=== PATIENT | male | born 1985 | race Caucasian/White ===

== ENCOUNTER 2017-09-01 11:17 | Inpatient (IN) | payer MEDICAID ==
[2017-09-01] MEDS ORDERED: Ondansetron 4 MG/2 ML SDV IVPUSH ONE (12:12)
[2017-09-01] MEDS ORDERED: Sodium Chloride 0.9% 1,000 ML IV ONE ×2 (12:12→14:28)
[2017-09-01] MEDS ORDERED: Sodium Chloride 0.9% 10 ML Syringe FLUSH PRN (12:12)
--- NOTE | 2017-09-01 12:17 | EDM.PDOC ---
ED HPI GENERAL MEDICAL PROBLEM - General Chief Complaint: Gastrointestinal Problem Stated Complaint: POSS DEHYDRATION Time Seen by Provider: 09/01/17 12:05 Source of Information: Reports: Patient History Limitations: Reports: Other (patient nonverbal) - History of Present Illness INITIAL COMMENTS - FREE TEXT/NARRATIVE: Patient is a 32-year-old handicapped male who presents to the ED with concerns of possible dehydration. Awning Hanger is present and states the patient as of yesterday has been vomiting multiple times. He's had a poor appetite. Poor fluid intake. Decreased urination noted. Patient has been more tired as of today. There's been multiple people sick at his residence with similar symptoms. He is on a fluid restriction secondary to issues with hyponatremia and seizure disorder. He takes Tylenol as scheduled for body aches unknown if these had any fevers. He is unsteady on his gait is shaky with ambulation. Per staff patient does appear to be more disoriented. Per tour manager the patient is normally non-verbal although and can signal yes or no by touching different places on his face. He is normally ambulatory. 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 STOCK CLERK: Reports: NSAIDS - Related Data Allergies Allergy/AdvReac Type Severity Reaction Status Date / Time No Known Allergies Allergy Verified 09/01/17 20:23 Home Meds: Home Meds Acetaminophen [Mapap] 1,000 mg PO Q4H PRN 09/01/17 [History] Calcium Carbonate/Vitamin D3 [Calcium 600 + Vit D Tablet] 1 tab PO BID 09/01/17 [History] Cholecalciferol (Vitamin D3) [Vitamin D3] 1,000 units PO BEDTIME 09/01/17 [ History] Citalopram [Citalopram HBr] 30 mg PO DAILY 09/01/17 [History] Clindamycin Phos/Benzoyl Perox [Clinda-Benzoyl Perox 1-5% Pump] 1 applic TOP BEDTIME 09/01/17 [History] Cyclobenzaprine [Flexeril] 10 mg PO BEDTIME 09/01/17 [History] Divalproex Sodium [Divalproex Sodium ER] 500 mg PO BID 09/01/17 [History] Ferrous Sulfate [Iron] 325 mg PO BID 09/01/17 [History] Furosemide 20 mg PO DAILY 09/01/17 [History] Ibuprofen 600 mg PO Q6H PRN 09/01/17 [History] Imipramine HCl [Imipramine] 75 mg PO BEDTIME 09/01/17 [History] LORazepam [Ativan] 0.5 mg PO QID 09/01/17 [History] Lisinopril 20 mg PO DAILY 09/01/17 [History] Multivitamin [Multi-Vitamin Daily] 1 cap PO BEDTIME 09/01/17 [History] Mupirocin Oint [Bactroban Nasal Oint] 1 applic NASBOTH BID 09/01/17 [History] OXcarbazepine [Trileptal] 900 mg PO BID 09/01/17 [History] Omeprazole 40 mg PO DAILY 09/01/17 [History] QUEtiapine [SEROquel XR] 400 mg PO BEDTIME 09/01/17 [History] QUEtiapine [SEROquel] 100 mg PO TID 09/01/17 [History] Sodium Chloride 3 gm PO TID 09/01/17 [History] Sodium Chloride [Deep Sea] 1 spray NASBOTH TID PRN 09/01/17 [History] Vitamin E 400 units PO BID 09/01/17 [History] cloNIDine [Catapres] 0.1 mg PO QID 09/01/17 [History] levETIRAcetam [Keppra] 500 mg PO BID 09/01/17 [History] levETIRAcetam [Levetiracetam] 1,000 mg PO BID 09/01/17 [History] ED ROS GENERAL - Review of Systems Review Of Systems: See Below Constitutional: Reports: Malaise, Decreased Appetite. Denies: Fever HEENT: Reports: No Symptoms Respiratory: Reports: No Symptoms Cardiovascular: Reports: No Symptoms GI/Abdominal: Reports: Decreased Appetite, Nausea, Vomiting : Reports: No Symptoms Skin: Reports: No Symptoms ED EXAM, GI/ABD - Physical Exam Exam: See Below Exam Limited By: Other (nonverbal) General Appearance: Alert, WD/WN, No Apparent Distress Ears: Hearing Grossly Normal Nose: Normal Inspection Throat/Mouth: Normal Oropharynx, No Airway Compromise Neck: Normal Inspection, Supple Respiratory/Chest: No Respiratory Distress, Lungs Clear, Normal Breath Sounds, No Accessory Muscle Use, Chest Non-Tender Cardiovascular: Normal Peripheral Pulses, Regular Rate, Rhythm, No Murmur GI/Abdominal Exam: Normal Bowel Sounds, Soft, Non-Tender, No Organomegaly, No Distention Back Exam: Normal Inspection Extremities: Normal Inspection, Non-Tender, No Pedal Edema Neurological: Alert, Oriented (per staff), CN II-XII Intact, No Motor/Sensory Deficits Psychiatric: Normal Affect, Normal Mood Skin Exam: Warm, Dry, Intact, Normal Color, No Rash Course - Vital Signs Last Recorded V/S: Last Vital Signs Temp 102.4 F H 09/01/17 19:52 Pulse 118 H 09/01/17 19:52 Resp 18 09/01/17 19:52 BP 141/85 H 09/01/17 19:52 Pulse Ox 92 L 09/01/17 19:52 - Orders/Labs/Meds Orders: Active Orders 24 hr Category Date Time Status CULTURE BLOOD [] Stat Lab 09/01/17 16:20 Received CULTURE BLOOD [] Stat Lab 09/01/17 16:34 Received CULTURE STREP A CONFIRMATION [] Stat Lab 09/01/17 13:30 Results STREP SCRN A RAPID W CULT CONF [] Stat Lab 09/01/17 13:30 Results Sodium Chloride 0.9% [Saline Flush] Med 09/01/17 12:12 Active 10 ml FLUSH ASDIRECTED PRN Blood Culture x2 Reflex Set [OM.PC] Stat Oth 09/01/17 15:59 Ordered Peripheral IV Insertion Adult [OM.PC] Stat Oth 09/01/17 12:12 Ordered Medication Orders Acetaminophen (Tylenol) 650 mg PO Q4H PRN PRN Reason: Pain (Mild 1-3)/fever Last Admin: 09/01/17 19:00 Dose: 650 mg Hydrocodone Bitart/Acetaminophen (Ronda 325-5 Mg) 1 tab PO Q4H PRN PRN Reason: Pain (moderate 4-6) Albuterol/Ipratropium (Duoneb 3.0-0.5 Mg/3 Ml) 3 ml NEB Q4H PRN PRN Reason: Shortness Of Breath/wheezing Hydralazine HCl (Apresoline) 10 mg IVPUSH Q6H PRN PRN Reason: Hypertension Ceftriaxone Sodium 2 gm/ (Sodium Chloride) 100 mls @ 200 mls/hr IV Q24H [facility] Sodium Chloride (Normal Saline) 1,000 mls @ 100 mls/hr IV ASDIRECTED [facility] Stop: 09/03/17 04:44 Vancomycin HCl 1 gm/ Sodium (Chloride) 250 mls @ 250 mls/hr IV Q12H [facility] Lorazepam (Ativan) 2 mg IVPUSH Q4H PRN PRN Reason: Seizures Magnesium Sulfate (Pharmacy To Dose - Magnesium Replacement) 1 dose .XX ASDIRECTED [facility] Metoprolol Tartrate (Lopressor) 5 mg IVPUSH Q4H PRN PRN Reason: Tachycardia Potassium Chloride (Pharmacy To Dose - Potassium Replacement) 1 dose .XX [facility]RECTED [facility] Sodium Chloride (Saline Flush) 10 ml FLUSH ASDIRECTED PRN PRN Reason: Keep Vein Open Last Admin: 09/01/17 12:22 Dose: 10 ml Vancomycin HCl (Pharmacy To Dose - Vancomycin) 1 dose .XX [facility]RECTED [facility] Labs: Laboratory Tests 09/01/17 09/01/17 09/01/17 Range/Units 12:05 12:05 12:05 WBC 14.04 H (4.23-9.07) K/mm3 RBC 4.96 (4.63-6.08) M/mm3 Hgb 15.7 (13.7-17.5) gm/L Hct 47.5 (40.1-51.0) % MCV 95.8 H (79.0-92.2) fl MCH 31.7 (25.7-32.2) pg MCHC 33.1 (32.2-35.5) g/dl RDW Std Deviation 43.3 (35.1-43.9) fL Plt Count 123 L (163-337) K/mm3 MPV 10.4 (9.4-12.3) fl Neut % (Auto) 81.9 H (34.0-67.9) % Lymph % (Auto) 4.0 L (21.8-53.1) % [place] % (Auto) 13.4 H (5.3-12.2) % Eos % (Auto) 0.1 L (0.8-7.0) Baso % (Auto) 0.2 (0.1-1.2) % Neut # (Auto) 11.50 H (1.78-5.38) K/mm3 Lymph # (Auto) 0.56 L (1.32-3.57) K/mm3 [place] # (Auto) 1.88 H (0.30-0.82) K/mm3 Eos # (Auto) 0.02 L (0.04-0.54) K/mm3 Baso # (Auto) 0.03 (0.01-0.08) K/mm3 Manual Slide Review Abnormal smear Sodium 138 (136-145) mEq/L Potassium 4.0 (3.5-5.1) mEq/L Chloride 102 (98-107) mEq/L Carbon Dioxide 26 (21-32) mEq/L Anion Gap 14.0 (5-15) BUN 27 H (7-18) mg/dL Creatinine 1.8 H (0.7-1.3) mg/dL Est Cr Clr Drug Dosing 51.20 mL/min Estimated GFR (MDRD) 43 (>60) mL/min BUN/Creatinine Ratio 15.0 (14-18) Glucose 103 (74-106) mg/dL Lactic Acid (0.4-2.0) mmol/L Calcium 8.9 (8.5-10.1) mg/dL Total Bilirubin 0.4 (0.2-1.0) mg/dL AST 30 (15-37) U/L ALT 33 (16-63) U/L Alkaline Phosphatase 74 (46-116) U/L C-Reactive Protein 47.1 H* (<1.0) mg/dL Total Protein 7.6 (6.4-8.2) g/dl Albumin 3.4 (3.4-5.0) g/dl Globulin 4.2 gm/dL Albumin/Globulin Ratio 0.8 L (1-2) Urine Color (Yellow) Urine Appearance (Clear) Urine pH (5.0-8.0) Ur Specific Comfort (1.005-1.030) Urine Protein (Negative) Urine Glucose (UA) (Negative) Urine Ketones (Negative) Urine Occult Blood (Negative) Urine Nitrite (Negative) Urine Bilirubin (Negative) Urine Urobilinogen (0.2-1.0) Ur Leukocyte Esterase (Negative) Urine RBC (0-5) /hpf Urine WBC (0-5) /hpf Ur Epithelial Cells (0-5) /hpf Urine Bacteria (FEW) /hpf Hyaline Casts (0-5) /lpf Urine Mucus (FEW) /hpf Mycoplasma pneumon IgM Negative (NEGATIVE) 09/01/17 09/01/17 Range/Units 12:30 16:34 WBC (4.23-9.07) K/mm3 RBC (4.63-6.08) M/mm3 Hgb (13.7-17.5) gm/L Hct (40.1-51.0) % MCV (79.0-92.2) fl MCH (25.7-32.2) pg MCHC (32.2-35.5) g/dl RDW Std Deviation (35.1-43.9) fL Plt Count (163-337) K/mm3 MPV (9.4-12.3) fl Neut % (Auto) (34.0-67.9) % Lymph % (Auto) (21.8-53.1) % [place] % (Auto) (5.3-12.2) % Eos % (Auto) (0.8-7.0) Baso % (Auto) (0.1-1.2) % Neut # (Auto) (1.78-5.38) K/mm3 Lymph # (Auto) (1.32-3.57) K/mm3 [place] # (Auto) (0.30-0.82) K/mm3 Eos # (Auto) (0.04-0.54) K/mm3 Baso # (Auto) (0.01-0.08) K/mm3 Manual Slide Review Sodium (136-145) mEq/L Potassium (3.5-5.1) mEq/L Chloride (98-107) mEq/L Carbon Dioxide (21-32) mEq/L Anion Gap (5-15) BUN (7-18) mg/dL Creatinine (0.7-1.3) mg/dL Est Cr Clr Drug Dosing mL/min Estimated GFR (MDRD) (>60) mL/min BUN/Creatinine Ratio (14-18) Glucose (74-106) mg/dL Lactic Acid 1.2 (0.4-2.0) mmol/L Calcium (8.5-10.1) mg/dL Total Bilirubin (0.2-1.0) mg/dL AST (15-37) U/L ALT (16-63) U/L Alkaline Phosphatase (46-116) U/L C-Reactive Protein (<1.0) mg/dL Total Protein (6.4-8.2) g/dl Albumin (3.4-5.0) g/dl Globulin gm/dL Albumin/Globulin Ratio (1-2) Urine Color Dark yellow (Yellow) Urine Appearance Clear (Clear) Urine pH 6.5 (5.0-8.0) Ur Specific Comfort > or = 1.030 (1.005-1.030) Urine Protein 2+ H (Negative) Urine Glucose (UA) Negative (Negative) Urine Ketones Trace H (Negative) Urine Occult Blood Negative (Negative) Urine Nitrite Negative (Negative) Urine Bilirubin 1+ H (Negative) Urine Urobilinogen 4.0 H (0.2-1.0) Ur Leukocyte Esterase Negative (Negative) Urine RBC 0-5 (0-5) /hpf Urine WBC 0-5 (0-5) /hpf Ur Epithelial Cells 0-5 (0-5) /hpf Urine Bacteria Few (FEW) /hpf Hyaline Casts 0-5 (0-5) /lpf Urine Mucus Few (FEW) /hpf Mycoplasma pneumon IgM (NEGATIVE) Meds: Medications Generic Name Dose Route Start Last Admin Trade Name Freq PRN Reason Stop Dose Admin Acetaminophen 650 mg 09/01/17 18:28 09/01/17 19:00 Tylenol PO 650 mg Q4H PRN Administration Pain (Mild 1-3)/fever Hydrocodone Bitart/Acetaminophen 1 tab 09/01/17 18:28 Ronda 325-5 Mg PO Q4H PRN Pain (moderate 4-6) Albuterol/Ipratropium 3 ml 09/01/17 18:28 Duoneb 3.0-0.5 Mg/3 Ml NEB Q4H PRN Shortness Of Breath/wheezing Hydralazine HCl 10 mg 09/01/17 19:55 Apresoline IVPUSH Q6H PRN Hypertension Ceftriaxone Sodium 2 gm/ 100 mls @ 200 mls/hr 09/02/17 16:00 Sodium Chloride IV Q24H [facility] Sodium Chloride 1,000 mls @ 100 mls/hr 09/01/17 18:45 Normal Saline IV 09/03/17 04:44 ASDIRECTED [facility] Vancomycin HCl 1 gm/ Sodium 250 mls @ 250 mls/hr 09/02/17 04:00 Chloride IV Q12H [facility] Lorazepam 2 mg 09/01/17 19:53 Ativan IVPUSH Q4H PRN Seizures Magnesium Sulfate 1 dose 09/01/17 20:00 Pharmacy To Dose - Magnesium Replacement .XX [facility]IRECTED [facility] Metoprolol Tartrate 5 mg 09/01/17 19:55 Lopressor IVPUSH Q4H PRN Tachycardia Potassium Chloride 1 dose 09/01/17 20:00 Pharmacy To Dose - Potassium Replacement .XX [facility]IRECTED [facility] Sodium Chloride 10 ml 09/01/17 12:12 09/01/17 12:22 Saline Flush FLUSH 10 ml ASDIRECTED PRN Administration Keep Vein Open Vancomycin HCl 1 dose 09/02/17 16:00 Pharmacy To Dose - Vancomycin .XX [facility]RECTED [facility] Discontinued Medications Generic Name Dose Route Start Last Admin Trade Name Freq PRN Reason Stop Dose Admin Acetaminophen 975 mg 09/01/17 12:40 09/01/17 12:53 Tylenol PO 09/01/17 12:41 975 mg NOW ONE Administration Diatrizoate Meglum/Diatrizoate Sod 90 ml 09/01/17 14:52 09/01/17 15:37 Gastrografin 37% PO 09/01/17 14:53 90 ml ONETIME ONE Administration Sodium Chloride 1,000 mls @ 500 mls/hr 09/01/17 12:12 09/01/17 12:20 Normal Saline IV 09/01/17 14:11 500 mls/hr ONETIME ONE Administration Sodium Chloride 1,000 mls @ 500 mls/hr 09/01/17 14:28 09/01/17 14:29 Normal Saline IV 09/01/17 16:27 500 mls/hr ONETIME ONE Administration Ceftriaxone Sodium 2 gm/ 100 mls @ 200 mls/hr 09/01/17 15:57 09/01/17 16:27 Sodium Chloride IV 09/01/17 16:26 Not Given ONETIME ONE Vancomycin HCl 1 gm/ Sodium 250 mls @ 250 mls/hr 09/01/17 15:57 09/01/17 17: 11 Chloride IV 09/01/17 16:56 250 mls/hr ONETIME ONE Administration Ceftriaxone Sodium 2 gm/ 100 mls @ 200 mls/hr 09/01/17 16:10 09/01/17 16:26 Sodium Chloride IV 09/01/17 16:39 200 mls/hr ONETIME STA Administration Sodium Chloride 1,000 mls @ 150 mls/hr 09/01/17 17:15 09/01/17 17:19 Normal Saline IV 150 mls/hr ASDIRECTED [facility] Administration Ondansetron HCl 4 mg 09/01/17 12:12 09/01/17 12:21 Zofran IVPUSH 09/01/17 12:13 4 mg ONETIME ONE Administration - Re-Assessments/Exams Free Text/Narrative Re-Assessment/Exam: IV established with normal saline 500 mL per hour and also Zofran 4 mg IVP. Initial labs include CBC, chem 14, UA, CRP, and one view of the abdomen. Strep screen negative. Labs reveal:. Creatinine 1.8. CRP 47.1. CBC revealed white blood cell count 14.04, platelet count 123, hemoglobin 15.7, neutrophil percentage is a 1.9, neutrophil #11.50, creatinine 1.8, left lites within normal limits, CRP is 47.1, UA positive for 2+ protein, ketones trace, bilirubin 1+, urobilinogen 4.0. Ordered CT of the abdomen and pelvis with oral contrast only. Per nursing staff patient's feeling much more comfortable. 09/01/17 15:54 CT abdomen and pelvis impression no acute findings noted. Unclear etiology of elevated white blood cell count with left shift and elevated CRP. Presumably patient has a bacterial infection of unknown origin at this point. Will order a chest x-ray one view. Discussed patient with Dr. Hsieh suggested starting patient on Rocephin 2 grams IV and Vancomycin 1 gram IVP. Ordered Influenza screen. Will speak with Dr. Ornelas after reviewing CXR. Blood cultures ordered. Influenza screen negative. 09/01/17 16:49 Chest x-ray was negative for acute findings. 09/01/17 16:[address] Ornelas he has accepted the patient. Requests admission per [facility]. 09/01/17 17:46 Admission order placed. Departure - Departure Time of Disposition: 15:54 Disposition: Admitted As Inpatient 64 Condition: Fair Clinical Impression: Elevated C-reactive protein (CRP), Acute renal injury Nausea & vomiting Qualifiers: Vomiting type: unspecified Vomiting Intractability: non-intractable Qualified Code(s): R11.2 - Nausea with vomiting, unspecified Elevated white blood cell count Qualifiers: Leukocytosis type: bandemia Qualified Code(s): D72.825 - Bandemia - Discharge Information - My Orders Last 24 Hours: My Active Orders 09/01/17 12:12 Sodium Chloride 0.9% [Saline Flush] 10 ml FLUSH ASDIRECTED PRN Peripheral IV Insertion Adult [OM.PC] Stat 09/01/17 13:30 CULTURE STREP A CONFIRMATION [RM] Stat STREP SCRN A RAPID W CULT CONF [] Stat 09/01/17 15:59 Blood Culture x2 Reflex Set [OM.PC] Stat 09/01/17 16:20 CULTURE BLOOD [BC] Stat 09/01/17 16:34 CULTURE BLOOD [BC] Stat - Assessment/Plan Last 24 Hours: My Active Orders 09/01/17 12:12 Sodium Chloride 0.9% [Saline Flush] 10 ml FLUSH ASDIRECTED PRN Peripheral IV Insertion Adult [OM.PC] Stat 09/01/17 13:30 CULTURE STREP A CONFIRMATION [RM] Stat STREP SCRN A RAPID W CULT CONF [] Stat 09/01/17 15:59 Blood Culture x2 Reflex Set [OM.PC] Stat 09/01/17 16:20 CULTURE BLOOD [BC] Stat 09/01/17 16:34 CULTURE BLOOD [BC] Stat
[2017-09-01] MEDS ORDERED: Acetaminophen 325 MG Tab PO ONE (12:40)
--- NOTE | 2017-09-01 14:44 | CR ---
Abdomen: Supine view of the abdomen was obtained. Comparison: No prior abdominal x-ray. Previous spine surgery is noted. Deformity of the left iliac bone is seen compatible with old healed trauma with [address]. Joint space narrowing is seen superiorly within the right hip. Calcification seen within the pelvis compatible with phleboliths. Bowel gas pattern is normal. Impression: 1. Incidental findings as noted above. Nothing acute is seen. Diagnostic code #2
[2017-09-01] MEDS ORDERED: Diatrizoate Meglumine/Diatrizoate Sodium 37% 120 ML Bottle PO ONE (14:52)
--- NOTE | 2017-09-01 15:45 | CT ---
CT abdomen and pelvis Technique: Multiple axial sections were obtained from above the dome of the diaphragm inferiorly through the pubic symphysis. Oral contrast has been given. Intravenous contrast not utilized. Comparison: No prior abdominal or pelvic CT exam. Findings: Scoliosis and fixation rods causes significant artifact throughout the abdomen. Liver shows no focal parenchymal abnormality. 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 Spleen appears within normal limits. Adrenal glands show no nodule. Kidneys show no abnormal calcifications or hydronephrosis. Pancreas shows no discrete abnormality. Aorta shows no aneurysmal dilatation. No retroperitoneal adenopathy or mesenteric abnormalities are seen. No pelvic mass or adenopathy is seen. Appendix is seen and appears normal in size. No free fluid or inflammatory change is seen. Impression: 1. Scoliosis and fixation rods causing significant artifact. 2. Other incidental findings. Nothing acute is seen on noncontrast CT study of the abdomen and pelvis. Diagnostic code #2
[2017-09-01] MEDS ORDERED: cefTRIAXone 2 GM in Sodium Chloride 0.9% 100 ML IV ONE (15:57)
[2017-09-01] MEDS ORDERED: cefTRIAXone 2 GM in Sodium Chloride 0.9% 100 ML IV STA (16:10)
--- NOTE | 2017-09-01 16:32 | CR ---
Chest: Portable view of the chest was obtained. Comparison: Prior chest x-ray of 06/15/15. Scoliosis and fixation rods are seen. [place] is fractured on one side within the upper aspect which is stable from prior chest x-ray. Heart size and mediastinum are normal. Lungs are clear. Impression: 1. Incidental findings. Nothing acute is appreciated on portable chest x-ray. Diagnostic code #2
[2017-09-01] MEDS ORDERED: Sodium Chloride 0.9% 1,000 ML IV SCH ×2 (17:15→18:45)
--- NOTE | 2017-09-01 18:27 | PCM.HP ---
H&P History of Present Illness - General Date of Service: 09/01/17 Admit Problem/Dx: Admission Diagnosis/Problem Admission Diagnosis/Problem Bacteremia Source of Information: Patient, Provider, RN, Other (ABLE cloth folder hand ) History Limitations: Reports: Other (nonverbal) - History of Present Illness Initial Comments - Free Text/Narative: Eros Khalil is a 32 yo male who presents to our ED today with his ABLE cloth folder hand due to weakness and possible dehydration. Supervisor Special Education reports the patient has been not acting himself and had poor oral intake. They are concerned he may be dehydrated. He is normally non-verbal although he can signal yes or no by touching different places on his face. He is normally ambulatory. Supervisor Special Education reports they have had a gastroenteritis of sorts going around [facility]LE and many staff have been sick as well. Per caregiver he has had some nausea and vomiting since this past Friday but no diarrhea. No recent cough or cold-like symptoms. He has had a recent fever. He does respond to questions although cloth folder hand cautions he will often respond negatively to get people to go away. In the ED temperature was 97.3 Fahrenheit. Pulse is 87. Respirations 18. Blood pressure 92/64. Pulse ox 95%. IV was established and blood cultures were obtained. Strep was negative. Influenza screen was negative. Labs are obtained: W Caesar elevated at 14.04. Hemoglobin normal at 15.7. Hematocrit 47.5. He is macrocytic. Platelet are low at 123,000. Neutrophils are elevated at 81.9%. Sodium was good at 138. Potassium good at 4.0. Chloride 102. Carbon dioxide 26. Anion gap is on the high end of normal at 14.0. BUN is high at 27. Creatinine is high at 1.8. EGFR is 43. Glucose is good at 103. Lactic acid was found to be 1.2. Calcium 8.9. Total bilirubin 0.9. Liver enzymes looked good with AST at 30, ALT at 33, alkaline phosphatase at 74. CRP is very high at 47.1. Protein is good at 7.6. Albumin 3.4. UA is negative however it is dark yellow in color. Specific gravity is greater than or equal to 1.030. 2+ protein, trace ketones, 1+ bilirubin, and 4.0 urobilinogen are seen. He is given Tylenol and vancomycin and Rocephin are started. CT of the abdomen and pelvis was obtained and shows no acute findings. Chest x-ray shows no acute findings. He carries a history of: GERD, seizures, anxiety, autism, mild mental retardation, vitamin D deficiency, acne, scoliosis and Pica. He is on a fluid restricted diet as he consumes excessive amounts of liquids which deplete his sodium. He is non-verbal but does use signals and an iPad for communication He is subsequently admitted to the medical floor on telemetry. He is a full code. He is a patient of Dr. Schultz at [facility] in [place]. He does have cares provided by [facility] staff. - Related Data Allergies/Adverse Reactions: Allergies Allergy/AdvReac Type Severity Reaction Status Date / Time No Known Allergies Allergy Verified 09/01/17 11:38 Home Medications: Home Meds Acetaminophen [Mapap] 500 mg PO QID PRN 09/01/17 [History] Calcium Carbonate/Vitamin D3 [Calcium 600 + Vit D Tablet] 1 tab PO DAILY [History] Cholecalciferol (Vitamin D3) [Vitamin D3] 1,000 mg PO DAILY 09/01/17 [History] Citalopram [Citalopram HBr] 30 mg PO DAILY 09/01/17 [History] Clindamycin Phos/Benzoyl Perox [Clinda-Benzoyl Perox 1-5% Pump] 20 ml TOP DAILY PRN 09/01/17 [History] Cyclobenzaprine [Flexeril] 10 mg PO DAILY 09/01/17 [History] Divalproex Sodium [Divalproex Sodium ER] 500 mg PO BID 09/01/17 [History] Ferrous Sulfate [Iron] 325 mg PO DAILY 09/01/17 [History] Furosemide 20 mg PO DAILY 09/01/17 [History] Imipramine HCl [Imipramine] 25 mg PO DAILY 09/01/17 [History] LORazepam [Ativan] 0.5 mg PO QID PRN 09/01/17 [History] Lisinopril 20 mg PO DAILY 09/01/17 [History] Multivitamin [Multi-Vitamin Daily] 1 cap PO DAILY 09/01/17 [History] Mupirocin Oint [Bactroban Nasal Oint] 1 squirt IN BID 09/01/17 [History] OXcarbazepine [Trileptal] 900 mg PO BID 09/01/17 [History] Omeprazole 40 mg PO DAILY 09/01/17 [History] QUEtiapine [SEROquel XR] 400 mg PO DAILY 09/01/17 [History] QUEtiapine [SEROquel] 100 mg PO TID 09/01/17 [History] Sodium Chloride [Saline Nasal [place]] 44 ml NS TID PRN 09/01/17 [History] cloNIDine [Catapres] 0.1 mg PO QID 09/01/17 [History] levETIRAcetam [Levetiracetam ER] 500 mg PO BID 09/01/17 [History] levETIRAcetam [Levetiracetam] 1,000 mg PO BID 09/01/17 [History] Past Medical History Gastrointestinal History: Reports: GERD, Other (See Below) Other Gastrointestinal History: Is on a fluid restrictive diet as he consumes excessive amounts of liquid which depletes his sodium. Neurological History: Reports: Seizure Psychiatric History: Reports: Anxiety, Autism, Other (See Below) Other Psychiatric History: mild mental retardation Endocrine/Metabolic History: Reports: Vitamin D Deficiency Dermatologic History: Reports: Other (See Below) Other Dermatologic History: acne - Past Surgical History Neurological Surgical History: Reports: Scoliosis Musculoskeletal Surgical History: Reports: Other (See Below) Other Musculoskeletal Surgeries/Procedures:: hip surgery Social & Family History - Family History Family Medical History: Noncontributory - Tobacco Use Smoking Status *Q: Never Smoker Second Hand Smoke Exposure: No - Caffeine Use Caffeine Use: Reports: Soda - Recreational Drug Use Recreational Drug Use: No H&P Review of Systems - Review of Systems: Review Of Systems: See Below Free Text/Narrative: Somewhat difficulty to obtain an accurate ROS as patient is non-verbal. Most of the ROS comes from the patients [facility] cloth folder hand who is present. General: Reports: Fever, Weakness, Decreased Appetite. Denies: Chills HEENT: Denies: Rhinitis, Sinus Congestion Pulmonary: Denies: Shortness of Breath, Cough, Sputum Cardiovascular: Denies: Chest Pain, Palpitations, Edema, Syncope Gastrointestinal: Reports: Diarrhea (patient occasionally has bouts of green diarrhea which is his baseline per cloth folder hand ), Nausea, Vomiting. Denies: Abdominal Pain, Constipation, Hematemesis, Hematochezia, Melena Genitourinary: Reports: No Symptoms Musculoskeletal: Reports: No Symptoms Skin: Reports: No Symptoms Psychiatric: Reports: No Symptoms Neurological: Reports: No Symptoms Hematologic/Lymphatic: Reports: No Symptoms Immunologic: Reports: No Symptoms Exam - Exam Exam: See Below - Vital Signs Vital Signs: Last Vital Signs Temp 97.3 F 09/01/17 11:30 Pulse 87 09/01/17 11:30 Resp 18 09/01/17 11:30 BP 92/64 09/01/17 11:30 Pulse Ox 95 09/01/17 11:30 Weight: 138 lb - Exam General: Alert, Cooperative HEENT: PERRLA, Hearing Intact, Mucosa Moist & [place], Nares Patent, Normal Nasal Septum, Posterior Pharynx Clear, Conjunctiva Clear, EOMI, EACs Clear, TMs Clear Neck: Supple, Trachea Midline. No: JVD Lungs: Clear to Auscultation, Normal Respiratory Effort Cardiovascular: Regular Rate, Regular Rhythm GI/Abdominal Exam: Normal Bowel Sounds, Soft, No Organomegaly, No Distention, No Abnormal Bruit, No Mass, Pelvis Stable, Tender (Does report mild tenderness in RLQ) (Male) Exam: Deferred Rectal (Males) Exam: Deferred Back Exam: Decreased Range of Motion Extremities: Normal Inspection, Normal Range of Motion, Non-Tender, No Pedal Edema, Normal Capillary Refill Peripheral Pulses: 2+: Radial (L), Radial (R), Posterior Tibial (L), Posterior Tibial (R), Dorsalis Pedis (L), Dorsalis Pedis (R) Skin: Warm, Dry, Intact Neurological: Cranial Nerves Intact (grossly ) Neuro Extensive - Mental Status: Alert Psychiatric: Alert - Patient Data Result Diagrams: 09/01/17 12:05 09/01/17 12:05 *Q Meaningful Use (ADM) - VTE *Q VTE Criteria *Q: - Stroke *Q Stroke Criteria *Q: - AMI *Q AMI Criteria *Q: - Problem List (1) Acute renal injury SNOMED Code(s): 31620352 ICD Code: N17.9 - ACUTE KIDNEY FAILURE, UNSPECIFIED Status: Acute Priority: High Current Visit: Yes (2) Elevated C-reactive protein (CRP) SNOMED Code(s): 186640336580049 ICD Code: R79.82 - ELEVATED C-REACTIVE PROTEIN (CRP) Status: Acute Priority: High Current Visit: Yes (3) Elevated white blood cell count SNOMED Code(s): 486056192 ICD Code: D72.829 - ELEVATED WHITE BLOOD CELL COUNT, UNSPECIFIED Status: Acute Priority: High Current Visit: Yes Qualifiers: Leukocytosis type: bandemia Qualified Code(s): D72.825 - Bandemia (4) Nausea & vomiting SNOMED Code(s): 69358500 ICD Code: R11.2 - NAUSEA WITH VOMITING, UNSPECIFIED Status: Acute Priority: Medium Current Visit: Yes Qualifiers: Vomiting type: unspecified Vomiting Intractability: non-intractable Qualified Code(s): R11.2 - Nausea with vomiting, unspecified (5) Fever SNOMED Code(s): 360725957 ICD Code: R50.9 - FEVER, UNSPECIFIED Status: Acute Priority: High Current Visit: Yes Qualifiers: Fever type: unspecified Qualified Code(s): R50.9 - Fever, unspecified Problem List Initiated/Reviewed/Updated: Yes Orders Last 24hrs: Active Orders 24 hr Category Date Time Status Admission Status [Patient Status] [ADT] Routine ADT 09/01/17 17:45 Active Cardiac Monitoring [RC] . DIRECTED Care 09/01/17 17:45 Active Medication Orders Sodium Chloride (Normal Saline) 1,000 mls @ 150 mls/hr IV ASDIRECTED [facility] Last Admin: 09/01/17 17:19 Dose: 150 mls/hr Sodium Chloride (Saline Flush) 10 ml FLUSH ASDIRECTED PRN PRN Reason: Keep Vein Open Last Admin: 09/01/17 12:22 Dose: 10 ml Assessment/Plan Comment:: I/P: Acute: SIRS -WBC 14.04 -CRP 47.1 -Lactic acid 1.2 -Fever of 102.6 -N&V -UA, CXR, abdomen X-ray, AB/pelvis CT, influenza, strep - all negative -Blood cultures obtained and pending -Supervisor Special Education reports type of gastroenteritis going around [facility] homes recently -Given 2L of fluid in ED -Fluids as ordered -IV vancomycin and Rocephin started in ED - continue; pharmacy to dose vancomycin -Antiemeteics -Tylenol for fever -Viral panel ordered -Strep pneumonia ordered -Mycoplasma pneumonia ordered Acute Kidney injury -Unsure of baseline -BUN 27, Creatinine 1.8, eGFR 43 -2L fluids given in ED -Fluids as ordered -Avoid nephrotoxic drugs -Monitor AM labs Chronic: GERD - home meds seizures - home meds anxiety - home meds autism mild mental retardation vitamin D deficiency - home meds acne scoliosis Pica He is on a fluid restricted diet as he consumes excessive amounts of liquids which deplete his sodium. Plan: Admit to medical floor on telemetry CM for discharge planning PT for strengthening Other orders as indicated above Home medications as indicated Routine AM labs GI Prophylaxis - home PPI DVT/PE prophylaxis: SARAH olivier Code status: Full Code; PCP: Dr. Valdovinos at [facility] here in [place].
[2017-09-01] MEDS ORDERED: Albuterol/Ipratropium 3.0-0.5 MG/3 ML Neb Soln NEB PRN (18:28)
[2017-09-01] MEDS: Acetaminophen 325 MG Tab PO PRN ×2 (19:00→23:27)
[2017-09-01] MEDS ORDERED: LORazepam 2 MG/ML MDV IVPUSH PRN (19:53)
[2017-09-01] MEDS ORDERED: Metoprolol Tartrate 5 MG/5 ML SDV IVPUSH PRN (19:55)
[2017-09-01] MEDS ORDERED: hydrALAZINE 20 MG/ML SDV IVPUSH PRN (19:55)
[2017-09-01] MEDS: Ibuprofen 600 MG Tab PO PRN (21:50)
[2017-09-01] MEDS ORDERED: Sodium Chloride 0.65% Nasal Spray 45 ML Bottle NASBOTH PRN (22:05)
[2017-09-01] MEDS ORDERED: Non-Formulary Medication 1 Each (Levetiracetam [Levetiracetam] 1,000 MG) PO SCH (22:15)
[2017-09-01] MEDS: Mupirocin Oint 22 GM Tube TOP SCH (23:23)
[2017-09-01] MEDS: levETIRAcetam 500 MG Tab PO SCH (23:28)
[2017-09-01] MEDS: OXcarbazepine 300 MG Tab PO SCH (23:29)
[2017-09-02] MEDS: Ibuprofen 600 MG Tab PO PRN ×2 (04:32→20:34)
[2017-09-02] MEDS: QUEtiapine 100 MG Tab PO SCH ×3 (07:25→16:08)
--- NOTE | 2017-09-02 07:34 | PCM.PN ---
- General Info Date of Service: 09/02/17 Admission Dx/Problem (Free Text): Admission Diagnosis/Problem Admission Diagnosis/Problem Bacteremia Eros is seen this morning sitting up in chair watching TV. He is 1:1 overnight, nurse reports did not sleep a wink but was pleasant and cooperative without concerns. No n/v/d overnight. Did spike temp of 102.0 at 2330, nurse has been alternating tylenol/motrin since that time and has been afebrile. He does communicate with me by touching his chin or his nose for yes/no answers. Denies c/o pain this morning- no abdominal pain, is not hungry. BC preliminary are G+coci in clusters- he is on IV vancomycin currently pending C&S. Functional Status: Reports: Pain Controlled, Ambulating, Urinating - Review of Systems General: Reports: Fever (overnight), Night Sweats (sweats with fever last night) . Denies: Appetite (no appetite this morning) Pulmonary: Reports: No Symptoms. Denies: Shortness of Breath Cardiovascular: Reports: No Symptoms. Denies: Chest Pain Gastrointestinal: Reports: No Symptoms. Denies: Abdominal Pain, Nausea, Vomiting Psychiatric: Reports: Other (pleasant and cooperative this morning) - Patient Data Vitals - Most Recent: Last Vital Signs Temp 98.7 F 09/02/17 05:32 Pulse 103 H 09/02/17 03:10 Resp 19 09/02/17 03:10 BP 134/101 H 09/02/17 03:10 Pulse Ox 99 09/02/17 03:10 Weight - Most Recent: 167 lb I&O - Last 24 Hours: Intake & Output 09/01/17 09/02/17 09/02/17 22:59 06:59 14:59 Intake Total 2750 Output Total 1000 700 Balance -1000 2050 Lab Results Last 24 Hours: Laboratory Results - last 24 hr 09/01/17 09/02/17 09/02/17 Range/Units 23:13 05:45 05:45 WBC 13.22 H (4.23-9.07) K/mm3 RBC 3.98 L (4.63-6.08) M/mm3 Hgb 12.8 L (13.7-17.5) gm/L Hct 37.8 L (40.1-51.0) % MCV 95.0 H (79.0-92.2) fl MCH 32.2 (25.7-32.2) pg MCHC 33.9 (32.2-35.5) g/dl RDW Std Deviation 41.7 (35.1-43.9) fL Plt Count 108 L (163-337) K/mm3 MPV 11.1 (9.4-12.3) fl Neut % (Auto) 75.8 H (34.0-67.9) % Lymph % (Auto) 6.2 L (21.8-53.1) % [place] % (Auto) 17.3 H (5.3-12.2) % Eos % (Auto) 0.3 L (0.8-7.0) Baso % (Auto) 0.1 (0.1-1.2) % Neut # (Auto) 10.02 H (1.78-5.38) K/mm3 Lymph # (Auto) 0.82 L (1.32-3.57) K/mm3 [place] # (Auto) 2.29 H (0.30-0.82) K/mm3 Eos # (Auto) 0.04 (0.04-0.54) K/mm3 Baso # (Auto) 0.01 (0.01-0.08) K/mm3 Sodium 137 (136-145) mEq/L Potassium 3.6 (3.5-5.1) mEq/L Chloride 101 (98-107) mEq/L Carbon Dioxide 25 (21-32) mEq/L Anion Gap 14.6 (5-15) BUN 16 (7-18) mg/dL Creatinine 0.7 (0.7-1.3) mg/dL Est Cr Clr Drug Dosing 143.86 mL/min Estimated GFR (MDRD) > 60 (>60) mL/min BUN/Creatinine Ratio 22.9 H (14-18) Glucose 97 (74-106) mg/dL Calcium 8.0 L (8.5-10.1) mg/dL Magnesium 1.9 (1.8-2.4) mg/dl MRSA (PCR) Negative Med Orders - Current: Current Medications Acetaminophen (Tylenol) 650 mg PO Q4H PRN PRN Reason: Pain (Mild 1-3)/fever Last Admin: 09/01/17 23:27 Dose: 650 mg Hydrocodone Bitart/Acetaminophen ([place] 325-5 Mg) 1 tab PO Q4H PRN PRN Reason: Pain (moderate 4-6) Albuterol/Ipratropium (Duoneb 3.0-0.5 Mg/3 Ml) 3 ml NEB Q4H PRN PRN Reason: Shortness Of Breath/wheezing Calcium Carbonate (Calcium Carbonate/Vitamin D 1500 Mg-200 Unit) 1 tab PO BID [facility] Cholecalciferol (Vitamin D3) 1,000 units PO BEDTIME [facility] Citalopram Hydrobromide (Celexa) 30 mg PO DAILY [facility] Clonidine HCl (Catapres) 0.1 mg PO QID [facility] Cyclobenzaprine HCl (Flexeril) 10 mg PO BEDTIME [facility] Ferrous Sulfate (Ferrous Sulfate) 325 mg PO BID [facility] Furosemide (Lasix) 20 mg PO DAILY [facility] Hydralazine HCl (Apresoline) 10 mg IVPUSH Q6H PRN PRN Reason: Hypertension Sodium Chloride (Normal Saline) 1,000 mls @ 100 mls/hr IV ASDIRECTED [facility] Stop: 09/03/17 04:44 Last Admin: 09/02/17 01:52 Dose: 100 mls/hr Vancomycin HCl 1 gm/ Sodium (Chloride) 250 mls @ 250 mls/hr IV Q12H [facility] Last Admin: 09/02/17 04:23 Dose: 250 mls/hr Ceftriaxone Sodium 2 gm/ (Dextrose/Water) 100 mls @ 200 mls/hr IV Q24H [facility] Ibuprofen (Motrin) 600 mg PO Q6H PRN PRN Reason: fever Last Admin: 09/02/17 04:32 Dose: 600 mg Imipramine HCl (Imipramine Hcl) 75 mg PO BEDTIME [facility] Levetiracetam (Keppra) 1,500 mg PO BID [facility] Last Admin: 09/01/17 23:28 Dose: 1,500 mg Lisinopril (Prinivil) 20 mg PO DAILY [facility] Lorazepam (Ativan) 2 mg IVPUSH Q4H PRN PRN Reason: Seizures Lorazepam (Ativan) 0.5 mg PO QID [facility] Magnesium Sulfate (Pharmacy To Dose - Magnesium Replacement) 0 dose .XX ASDIRECTED PRN PRN Reason: RX TO WATCH MAG LEVELS Metoprolol Tartrate (Lopressor) 5 mg IVPUSH Q4H PRN PRN Reason: Tachycardia Mupirocin (Bactroban Oint) 0 gm TOP BID [facility] Last Admin: 09/01/17 23:23 Dose: 1 tube Non-Formulary Medication (Divalproex Sodium) 500 mg PO BID [facility] Oxcarbazepine (Trileptal) 900 mg PO BID [facility] Last Admin: 09/01/17 23:29 Dose: 900 mg Pantoprazole Sodium (Protonix) 40 mg PO DAILY@0700 [facility] Clinda-Benzoyl Perox (1-5% Topical) 0 each TOP BEDTIME [facility] Quetiapine [Seroquel (Xr] 400 Mg) 0 each PO BEDTIME [facility] Potassium Chloride (Pharmacy To Dose - Potassium Replacement) 0 dose .XX ASDIRECTED PRN PRN Reason: RX TO WATCH K LEVELS Quetiapine Fumarate (Seroquel) 100 mg PO TID@0700,1200,1600 [facility] Last Admin: 09/02/17 07:25 Dose: 100 mg Sodium Chloride (Saline Flush) 10 ml FLUSH ASDIRECTED PRN PRN Reason: Keep Vein Open Last Admin: 09/01/17 12:22 Dose: 10 ml Sodium Chloride ([place] Nasal [place]) 0 ml NASBOTH TID PRN PRN Reason: Congestion Vancomycin HCl (Pharmacy To Dose - Vancomycin) 0 dose .XX ASDIRECTED PRN PRN Reason: RX TO DOSE VANCOMYCIN Vitamin E (Vitamin E) 400 units PO BID [facility] Discontinued Medications Acetaminophen (Tylenol) 975 mg PO NOW ONE Stop: 09/01/17 12:41 Last Admin: 09/01/17 12:53 Dose: 975 mg Diatrizoate Meglum/Diatrizoate Sod (Gastrografin 37%) 90 ml PO ONETIME ONE Stop: 09/01/17 14:53 Last Admin: 09/01/17 15:37 Dose: 90 ml Sodium Chloride (Normal Saline) 1,000 mls @ 500 mls/hr IV ONETIME ONE Stop: 09/01/17 14:11 Last Admin: 09/01/17 12:20 Dose: 500 mls/hr Sodium Chloride (Normal Saline) 1,000 mls @ 500 mls/hr IV ONETIME ONE Stop: 09/01/17 16:27 Last Admin: 09/01/17 14:29 Dose: 500 mls/hr Ceftriaxone Sodium 2 gm/ (Sodium Chloride) 100 mls @ 200 mls/hr IV ONETIME ONE Stop: 09/01/17 16:26 Last Admin: 09/01/17 16:27 Dose: Not Given Vancomycin HCl 1 gm/ Sodium (Chloride) 250 mls @ 250 mls/hr IV ONETIME ONE Stop: 09/01/17 16:56 Last Admin: 09/01/17 17:11 Dose: 250 mls/hr Ceftriaxone Sodium 2 gm/ (Sodium Chloride) 100 mls @ 200 mls/hr IV ONETIME STA Stop: 09/01/17 16:39 Last Admin: 09/01/17 16:26 Dose: 200 mls/hr Sodium Chloride (Normal Saline) 1,000 mls @ 150 mls/hr IV ASDIRECTED [facility] Last Admin: 09/01/17 17:19 Dose: 150 mls/hr Ceftriaxone Sodium 2 gm/ (Sodium Chloride) 100 mls @ 200 mls/hr IV Q24H [facility] Omeprazole (Omeprazole) 40 mg PO DAILY [facility] Ondansetron HCl (Zofran) 4 mg IVPUSH ONETIME ONE Stop: 09/01/17 12:13 Last Admin: 09/01/17 12:21 Dose: 4 mg - Exam Quality Assessment: DVT Prophylaxis General: Alert, Cooperative, No Acute Distress HEENT: Pupils Equal, EOMI, Mucous Membr. Moist/[place] Neck: Supple Lungs: Clear to Auscultation, Normal Respiratory Effort Cardiovascular: Regular Rate, Regular Rhythm GI/Abdominal Exam: Normal Bowel Sounds (normal to hyperactive), Soft, Non-Tender , No Organomegaly. No: Guarding, Rigid, Rebound (Male) Exam: Deferred Back Exam: Normal Inspection Extremities: No Pedal Edema, Normal Capillary Refill, Other (sarah hose bilat) Peripheral Pulses: 2+: Dorsalis Pedis (L), Dorsalis Pedis (R) Skin: Warm, Dry, Intact Neurological: Other (alert, interactive with yes/no answers to his chin or his nose- seems to answer appropriately. ) Psy/Mental Status: Alert - Problem List & Annotations (1) Bacteremia due to Gram-positive bacteria SNOMED Code(s): 487824874045 Code(s): R78.81 - BACTEREMIA Status: Acute Priority: High Current Visit : Yes (2) Acute renal injury SNOMED Code(s): 30155722 Code(s): N17.9 - ACUTE KIDNEY FAILURE, UNSPECIFIED Status: Resolved Priority: High Current Visit: Yes (3) Elevated C-reactive protein (CRP) SNOMED Code(s): 812101664224646 Code(s): R79.82 - ELEVATED C-REACTIVE PROTEIN (CRP) Status: Acute Priority: High Current Visit: Yes (4) Elevated white blood cell count SNOMED Code(s): 006335472 Code(s): D72.829 - ELEVATED WHITE BLOOD CELL COUNT, UNSPECIFIED Status: Acute Priority: High Current Visit: Yes Qualifiers: Leukocytosis type: bandemia Qualified Code(s): D72.825 - Bandemia (5) Fever SNOMED Code(s): 861560922 Code(s): R50.9 - FEVER, UNSPECIFIED Status: Acute Priority: High Current Visit: Yes Qualifiers: Fever type: unspecified Qualified Code(s): R50.9 - Fever, unspecified (6) Nausea & vomiting SNOMED Code(s): 22960226 Code(s): R11.2 - NAUSEA WITH VOMITING, UNSPECIFIED Status: Acute Priority : High Current Visit: Yes Qualifiers: Vomiting type: unspecified Vomiting Intractability: non-intractable Qualified Code(s): R11.2 - Nausea with vomiting, unspecified - Problem List Review Problem List Initiated/Reviewed/Updated: Yes - Plan Plan:: I/P: Acute: SIRS--- Bacteremia with gram + cocci in clusters thus far on , awaiting further C&S. -WBC 14.04-->13.2 -CRP 47.1 -Lactic acid 1.2 -Fever of 102.6-- spiked again to 102.0 at 2300; now alternating tylenol/ motrin every 4 hours -N&V--? resolved thus far in hospital stay -UA, CXR, abdomen X-ray, AB/pelvis CT, influenza, strep - all negative -Blood cultures obtained and pending--as noted above -Outside Sales Inspector reports type of gastroenteritis going around [facility] homes recently -Given 2L of fluid in ED -Fluids as ordered -IV vancomycin and Rocephin started in ED - continue; pharmacy to dose vancomycin -Antiemeteics -Tylenol/motrin for fever -Viral panel ordered- pending -Strep pneumonia ordered- pending -Mycoplasma pneumonia - negative -Strep screen - negative Resolved Acute Kidney injury--resolved -Unsure of baseline -BUN 27, Creatinine 1.8, eGFR 43---creat 0.7 this am -2L fluids given in ED -Fluids as ordered -Avoid nephrotoxic drugs -Monitor AM labs Chronic: GERD - home meds seizures - home meds anxiety - home meds autism mild mental retardation vitamin D deficiency - home meds acne scoliosis Pica---He is on a fluid restricted diet as he consumes excessive amounts of liquids which deplete his sodium. Plan: Admit to medical floor on telemetry- cont current POC pending BC C&S-- plan 4 days of IV abx tentatively. CM for discharge planning PT for strengthening Other orders as indicated above Home medications as indicated Routine AM labs GI Prophylaxis - home PPI DVT/PE prophylaxis: SARAH olivier Code status: Full Code; PCP: Dr. Valdovinos at [facility] here in [place].
[2017-09-02] MEDS ORDERED: Omeprazole 20 MG Cap.CR PO SCH (09:00)
[2017-09-02] MEDS: levETIRAcetam 500 MG Tab PO SCH ×2 (09:15→20:24)
[2017-09-02] MEDS: Lisinopril 20 MG Tab PO SCH (09:15)
[2017-09-02] MEDS: OXcarbazepine 300 MG Tab PO SCH ×2 (09:15→20:22)
[2017-09-02] MEDS: cloNIDine 0.1 MG Tab PO SCH ×4 (09:16→20:15)
[2017-09-02] MEDS: Calcium Carbonate/Vitamin D3 1500 MG-200 Units Tab PO SCH ×2 (09:16→20:12)
[2017-09-02] MEDS: Vitamin E (dl-alpha-tocopherol acetate) 400 Unit Cap PO SCH ×2 (09:16→20:13)
[2017-09-02] MEDS: Citalopram 20 MG Tab PO SCH (09:16)
[2017-09-02] MEDS: Furosemide 20 MG Tab PO SCH (09:16)
[2017-09-02] MEDS: LORazepam 0.5 MG Tab PO SCH ×4 (09:16→20:33)
[2017-09-02] MEDS: Ferrous Sulfate 325 MG Tab PO SCH ×2 (09:17→20:14)
[2017-09-02] MEDS: Mupirocin Oint 22 GM Tube TOP SCH ×2 (09:19→20:19)
[2017-09-02] MEDS: Divalproex Sodium Delayed-Release 500 MG Tab.CR PO SCH ×2 (09:19→20:13)
[2017-09-02] MEDS ORDERED: cefTRIAXone 2 GM in Sodium Chloride 0.9% 100 ML IV SCH (16:00)
[2017-09-02] MEDS: Acetaminophen 325 MG Tab PO PRN (16:07)
[2017-09-02] MEDS: Cyclobenzaprine 10 MG Tab PO SCH (20:14)
[2017-09-02] MEDS: Cholecalciferol (Vitamin D3) 1,000 Unit Tab PO SCH (20:23)
[2017-09-02] MEDS: CLINDAMYCIN TOP SCH (22:28)
[2017-09-02] MEDS: QUETIAPINE 400 MG PO SCH (22:28)
[2017-09-02] MEDS: BENZOYL PEROXIDE TOP SCH (22:28)
[2017-09-03] MEDS: Acetaminophen 325 MG Tab PO PRN (04:24)
[2017-09-03] MEDS: QUEtiapine 100 MG Tab PO SCH ×3 (06:38→17:11)
[2017-09-03] MEDS: Pantoprazole 40 MG Tab.CR PO SCH (06:39)
--- NOTE | 2017-09-03 06:54 | PCM.PN ---
- General Info Date of Service: 09/03/17 Admission Dx/Problem (Free Text): Admission Diagnosis/Problem Admission Diagnosis/Problem Bacteremia Eros is seen this morning, he was anxious overnight but did sleep some. Spiked a temp last evening. He answers ?'s appropriately this morning with yes/no answers being to his nose or chin. He is more anxious today than yesterday when I saw him. BC preliminary are G+coci in clusters- he is on IV vancomycin currently pending C&S. Functional Status: Reports: Pain Controlled, Tolerating Diet (decreased appetite - family bought food in last night and encouraged him to eat), Ambulating, Urinating - Review of Systems General: Reports: Fever (last evening, none overnight) HEENT: Reports: No Symptoms Pulmonary: Reports: No Symptoms. Denies: Shortness of Breath, Cough Cardiovascular: Reports: No Symptoms. Denies: Chest Pain Gastrointestinal: Denies: Abdominal Pain (denies), Diarrhea, Nausea, Vomiting Neurological: Reports: Other (autism and mild MR --communicates with yes/no by motions to his face- touching nose or chin. Answers ?'s appropriately with no to chin, yes to nose. ) Psychiatric: Reports: No Symptoms, Anxiety (? anxious, difficult to determine) - Patient Data Vitals - Most Recent: Last Vital Signs Temp 99.5 F 09/03/17 04:24 Pulse 101 H 09/03/17 04:16 Resp 16 09/03/17 04:16 BP 141/92 H 09/03/17 04:16 Pulse Ox 92 L 09/03/17 04:16 Weight - Most Recent: 166 lb 9.6 oz I&O - Last 24 Hours: Intake & Output 09/02/17 09/02/17 09/03/17 14:59 22:59 06:59 Intake Total 120 650 250 Output Total 1300 300 Balance 120 -650 -50 Lab Results Last 24 Hours: Laboratory Results - last 24 hr 09/02/17 09/02/17 Range/Units 05:45 05:45 Manual Slide Review Abnormal smear Sodium 137 (136-145) mEq/L Potassium 3.6 (3.5-5.1) mEq/L Chloride 101 (98-107) mEq/L Carbon Dioxide 25 (21-32) mEq/L Anion Gap 14.6 (5-15) BUN 16 (7-18) mg/dL Creatinine 0.7 (0.7-1.3) mg/dL Est Cr Clr Drug Dosing 143.86 mL/min Estimated GFR (MDRD) > 60 (>60) mL/min BUN/Creatinine Ratio 22.9 H (14-18) Glucose 97 (74-106) mg/dL Calcium 8.0 L (8.5-10.1) mg/dL Magnesium 1.9 (1.8-2.4) mg/dl C-Reactive Protein 37.0 H* (<1.0) mg/dL Luís Results Last 24 Hours: Microbiology 09/01/17 19:13 Respiratory Virus Panel (PCR) (LUÍS) - Final Nasopharyngeal Swab - Nare, Right Med Orders - Current: Current Medications Acetaminophen (Tylenol) 650 mg PO Q4H PRN PRN Reason: Pain (Mild 1-3)/fever Last Admin: 09/03/17 04:24 Dose: 650 mg Hydrocodone Bitart/Acetaminophen ([place] 325-5 Mg) 1 tab PO Q4H PRN PRN Reason: Pain (moderate 4-6) Albuterol/Ipratropium (Duoneb 3.0-0.5 Mg/3 Ml) 3 ml NEB Q4H PRN PRN Reason: Shortness Of Breath/wheezing Calcium Carbonate (Calcium Carbonate/Vitamin D 1500 Mg-200 Unit) 1 tab PO BID [facility] Last Admin: 09/02/17 20:12 Dose: 1 tab Cholecalciferol (Vitamin D3) 1,000 units PO BEDTIME [facility] Last Admin: 09/02/17 20:23 Dose: 1,000 units Citalopram Hydrobromide (Celexa) 30 mg PO DAILY [facility] Last Admin: 09/02/17 09:16 Dose: 30 mg Clonidine HCl (Catapres) 0.1 mg PO QID [facility] Last Admin: 09/02/17 20:15 Dose: 0.1 mg Cyclobenzaprine HCl (Flexeril) 10 mg PO BEDTIME [facility] Last Admin: 09/02/17 20:14 Dose: 10 mg Divalproex Sodium (Depakote) 500 mg PO BID [facility] Last Admin: 09/02/17 20:13 Dose: 500 mg Divalproex Sodium (Depakote) 500 mg PO BID [facility] Ferrous Sulfate (Ferrous Sulfate) 325 mg PO BID [facility] Last Admin: 09/02/17 20:14 Dose: 325 mg Furosemide (Lasix) 20 mg PO DAILY [facility] Last Admin: 09/02/17 09:16 Dose: 20 mg Hydralazine HCl (Apresoline) 10 mg IVPUSH Q6H PRN PRN Reason: Hypertension Ceftriaxone Sodium 2 gm/ (Dextrose/Water) 100 mls @ 200 mls/hr IV Q24H [facility] Last Admin: 09/02/17 16:08 Dose: 200 mls/hr Vancomycin HCl 1 gm/ Sodium (Chloride) 250 mls @ 250 mls/hr IV Q8H [facility] Last Admin: 09/03/17 04:30 Dose: 250 mls/hr Ibuprofen (Motrin) 600 mg PO Q6H PRN PRN Reason: fever Last Admin: 09/02/17 20:34 Dose: 600 mg Imipramine HCl (Imipramine Hcl) 75 mg PO BEDTIME [facility] Last Admin: 09/02/17 20:13 Dose: 75 mg Levetiracetam (Keppra) 1,500 mg PO BID [facility] Last Admin: 09/02/17 20:24 Dose: 1,500 mg Lisinopril (Prinivil) 20 mg PO DAILY [facility] Last Admin: 09/02/17 09:15 Dose: 20 mg Lorazepam (Ativan) 2 mg IVPUSH Q4H PRN PRN Reason: Seizures Lorazepam (Ativan) 0.5 mg PO QID [facility] Last Admin: 09/02/17 20:33 Dose: 0.5 mg Magnesium Sulfate (Pharmacy To Dose - Magnesium Replacement) 0 dose .XX ASDIRECTED PRN PRN Reason: RX TO WATCH MAG LEVELS Metoprolol Tartrate (Lopressor) 5 mg IVPUSH Q4H PRN PRN Reason: Tachycardia Mupirocin (Bactroban Oint) 0 gm TOP BID [facility] Last Admin: 09/02/17 20:19 Dose: 22 gm Oxcarbazepine (Trileptal) 900 mg PO BID [facility] Last Admin: 09/02/17 20:22 Dose: 900 mg Pantoprazole Sodium (Protonix) 40 mg PO DAILY@0700 [facility] Last Admin: 09/03/17 06:39 Dose: 40 mg Clinda-Benzoyl Perox (1-5% Topical) 0 each TOP BEDTIME [facility] Last Admin: 09/02/17 22:28 Dose: Not Given Quetiapine [Seroquel (Xr] 400 Mg) 0 each PO BEDTIME [facility] Last Admin: 09/02/17 22:28 Dose: Not Given Potassium Chloride (Pharmacy To Dose - Potassium Replacement) 0 dose .XX ASDIRECTED PRN PRN Reason: RX TO WATCH K LEVELS Quetiapine Fumarate (Seroquel) 100 mg PO TID@0700,1200,1600 [facility] Last Admin: 09/03/17 06:38 Dose: 100 mg Sodium Chloride (Saline Flush) 10 ml FLUSH ASDIRECTED PRN PRN Reason: Keep Vein Open Last Admin: 09/01/17 12:22 Dose: 10 ml Sodium Chloride (Mccreary Nasal Swengel) 0 ml NASBOTH TID PRN PRN Reason: Congestion Vancomycin HCl (Pharmacy To Dose - Vancomycin) 0 dose .XX ASDIRECTED PRN PRN Reason: RX TO DOSE VANCOMYCIN Vitamin E (Vitamin E) 400 units PO BID [facility] Last Admin: 09/02/17 20:13 Dose: 400 units Discontinued Medications Acetaminophen (Tylenol) 975 mg PO NOW ONE Stop: 09/01/17 12:41 Last Admin: 09/01/17 12:53 Dose: 975 mg Diatrizoate Meglum/Diatrizoate Sod (Gastrografin 37%) 90 ml PO ONETIME ONE Stop: 09/01/17 14:53 Last Admin: 09/01/17 15:37 Dose: 90 ml Sodium Chloride (Normal Saline) 1,000 mls @ 500 mls/hr IV ONETIME ONE Stop: 09/01/17 14:11 Last Admin: 09/01/17 12:20 Dose: 500 mls/hr Sodium Chloride (Normal Saline) 1,000 mls @ 500 mls/hr IV ONETIME ONE Stop: 09/01/17 16:27 Last Admin: 09/01/17 14:29 Dose: 500 mls/hr Ceftriaxone Sodium 2 gm/ (Sodium Chloride) 100 mls @ 200 mls/hr IV ONETIME ONE Stop: 09/01/17 16:26 Last Admin: 09/01/17 16:27 Dose: Not Given Vancomycin HCl 1 gm/ Sodium (Chloride) 250 mls @ 250 mls/hr IV ONETIME ONE Stop: 09/01/17 16:56 Last Admin: 09/01/17 17:11 Dose: 250 mls/hr Ceftriaxone Sodium 2 gm/ (Sodium Chloride) 100 mls @ 200 mls/hr IV ONETIME STA Stop: 09/01/17 16:39 Last Admin: 09/01/17 16:26 Dose: 200 mls/hr Sodium Chloride (Normal Saline) 1,000 mls @ 150 mls/hr IV ASDIRECTED [facility] Last Admin: 09/01/17 17:19 Dose: 150 mls/hr Ceftriaxone Sodium 2 gm/ (Sodium Chloride) 100 mls @ 200 mls/hr IV Q24H [facility] Sodium Chloride (Normal Saline) 1,000 mls @ 100 mls/hr IV ASDIRECTED [facility] Stop: 09/03/17 04:44 Last Admin: 09/02/17 01:52 Dose: 100 mls/hr Vancomycin HCl 1 gm/ Sodium (Chloride) 250 mls @ 250 mls/hr IV Q12H [facility] Last Admin: 09/02/17 04:23 Dose: 250 mls/hr Omeprazole (Omeprazole) 40 mg PO DAILY [facility] Ondansetron HCl (Zofran) 4 mg IVPUSH ONETIME ONE Stop: 09/01/17 12:13 Last Admin: 09/01/17 12:21 Dose: 4 mg - Exam Quality Assessment: DVT Prophylaxis General: Alert, Cooperative, No Acute Distress HEENT: Pupils Equal, EOMI, Mucous Membr. Moist/[place] Neck: Supple Lungs: Clear to Auscultation, Normal Respiratory Effort, Decreased Breath Sounds (bases) Cardiovascular: Regular Rate, Regular Rhythm GI/Abdominal Exam: Normal Bowel Sounds, Soft. No: No Organomegaly, Guarding, Rigid, Rebound, Tender (Male) Exam: Deferred Extremities: Normal Inspection, No Pedal Edema, Normal Capillary Refill Peripheral Pulses: 2+: Dorsalis Pedis (L), Dorsalis Pedis (R) Neurological: Other (responds/communicates with yes/no to his chin or nose is otherwise nonverbal. ) Psy/Mental Status: Alert - Problem List & Annotations (1) Bacteremia due to Gram-positive bacteria SNOMED Code(s): 713537658331 Code(s): R78.81 - BACTEREMIA Status: Acute Priority: High Current Visit : Yes (2) Acute renal injury SNOMED Code(s): 09896384 Code(s): N17.9 - ACUTE KIDNEY FAILURE, UNSPECIFIED Status: Resolved Priority: High Current Visit: Yes (3) Elevated C-reactive protein (CRP) SNOMED Code(s): 179699033305870 Code(s): R79.82 - ELEVATED C-REACTIVE PROTEIN (CRP) Status: Acute Priority: High Current Visit: Yes (4) Elevated white blood cell count SNOMED Code(s): 906693550 Code(s): D72.829 - ELEVATED WHITE BLOOD CELL COUNT, UNSPECIFIED Status: Acute Priority: High Current Visit: Yes Qualifiers: Leukocytosis type: bandemia Qualified Code(s): D72.825 - Bandemia (5) Fever SNOMED Code(s): 585565581 Code(s): R50.9 - FEVER, UNSPECIFIED Status: Acute Priority: High Current Visit: Yes Qualifiers: Fever type: unspecified Qualified Code(s): R50.9 - Fever, unspecified (6) Nausea & vomiting SNOMED Code(s): 40278098 Code(s): R11.2 - NAUSEA WITH VOMITING, UNSPECIFIED Status: Acute Priority : High Current Visit: Yes Qualifiers: Vomiting type: unspecified Vomiting Intractability: non-intractable Qualified Code(s): R11.2 - Nausea with vomiting, unspecified - Problem List Review Problem List Initiated/Reviewed/Updated: Yes - My Orders Last 24 Hours: My Active Orders 09/03/17 09:00 Acetaminophen [Tylenol] 650 mg PO TID Divalproex Sodium [Depakote] 500 mg PO BID 09/03/17 17:00 CULTURE BLOOD [BC] Stat CULTURE BLOOD [BC] Stat Blood Culture x2 Reflex Set [OM.PC] ONETIME - Plan Plan:: I/P: Acute: SIRS--- Bacteremia with gram + cocci in clusters thus far on BC, awaiting further C&S. -WBC 14.04-->13.2 -CRP 47.1 -Lactic acid 1.2 -Fever of 102.6 on admit-- spiked again last evening; scheduled tylenol TID with PRN motrin orders -N&V--? 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 -Given 2L of fluid in ED -Fluids as ordered -IV vancomycin and Rocephin started in ED - continue; pharmacy to dose vancomycin -Antiemeteics -Viral panel ordered- pending -Strep pneumonia ordered- pending -Mycoplasma pneumonia - negative -Strep screen - negative Resolved Acute Kidney injury--resolved -Unsure of baseline -BUN 27, Creatinine 1.8, eGFR 43---creat 0.7 this am -2L fluids given in ED -Fluids as ordered -Avoid nephrotoxic drugs -Monitor AM labs Chronic: GERD - home meds seizures - home meds anxiety - home meds autism and mild mental retardation vitamin D deficiency - home meds acne- home meds scoliosis Pica---He is on a fluid restricted diet as he consumes excessive amounts of liquids which deplete his sodium. Plan: Admit to medical floor on telemetry- cont current POC pending BC C&S-- plan 4 days of IV abx tentatively. Repeat BC this evening- 48 hours after initial BC. CM for discharge planning---plans DC back to half-way when ready PT for strengthening Other orders as indicated above Home medications as indicated Routine AM labs GI Prophylaxis - home PPI DVT/PE prophylaxis: SARAH olivier Code status: Full Code; PCP: Dr. Valdovinos at [facility] here in [place].
[2017-09-03] MEDS: LORazepam 0.5 MG Tab PO SCH ×4 (08:00→20:22)
[2017-09-03] MEDS: OXcarbazepine 300 MG Tab PO SCH ×2 (08:01→20:16)
[2017-09-03] MEDS: Vitamin E (dl-alpha-tocopherol acetate) 400 Unit Cap PO SCH ×2 (08:02→20:19)
[2017-09-03] MEDS: Calcium Carbonate/Vitamin D3 1500 MG-200 Units Tab PO SCH ×2 (08:02→20:19)
[2017-09-03] MEDS: Citalopram 20 MG Tab PO SCH (08:03)
[2017-09-03] MEDS: Furosemide 20 MG Tab PO SCH (08:03)
[2017-09-03] MEDS: Divalproex Sodium Delayed-Release 500 MG Tab.CR PO SCH ×2 (08:03→20:19)
[2017-09-03] MEDS: Ferrous Sulfate 325 MG Tab PO SCH ×2 (08:04→20:20)
[2017-09-03] MEDS: levETIRAcetam 500 MG Tab PO SCH ×2 (08:04→20:20)
[2017-09-03] MEDS: Acetaminophen 325 MG Tab PO SCH ×3 (08:05→20:17)
[2017-09-03] MEDS: cloNIDine 0.1 MG Tab PO SCH ×4 (08:05→20:17)
[2017-09-03] MEDS: Lisinopril 20 MG Tab PO SCH (08:06)
[2017-09-03] MEDS: Mupirocin Oint 22 GM Tube TOP SCH ×2 (08:06→20:36)
[2017-09-03] MEDS ORDERED: Piperacillin/Tazobactam 4.5 GM in Dextrose 5% in Water 100 ML IV ONE ×2 (09:00)
[2017-09-03] MEDS ORDERED: Divalproex Sodium Delayed-Release 500 MG Tab.CR PO SCH (09:00)
[2017-09-03] MEDS: Ibuprofen 600 MG Tab PO PRN (12:09)
[2017-09-03] MEDS ORDERED: Vancomycin 1 GM, Vancomycin 500 MG in Sodium Chloride 0.9% 500 ML IV SCH (13:16)
[2017-09-03] MEDS: Vancomycin 1 GM, Vancomycin 500 MG in Sodium Chloride 0.9% 500 ML IV SCH ×2 (14:09→21:50)
[2017-09-03] MEDS: Piperacillin/Tazobactam 4.5 GM in Dextrose 5% in Water 100 ML IV SCH ×2 (17:11)
[2017-09-03] MEDS: Cyclobenzaprine 10 MG Tab PO SCH (20:19)
[2017-09-03] MEDS: Cholecalciferol (Vitamin D3) 1,000 Unit Tab PO SCH (20:21)
[2017-09-03] MEDS: CLINDAMYCIN TOP SCH (20:54)
[2017-09-03] MEDS: BENZOYL PEROXIDE TOP SCH (20:54)
[2017-09-03] MEDS ORDERED: Potassium Chloride/Sodium Chloride Tab PO ONE (21:00)
[2017-09-03] MEDS ORDERED: SODIUM CHLORIDE PO SCH (21:00)
[2017-09-03] MEDS ORDERED: Vancomycin 1 GM SDV ONE (21:25)
[2017-09-03] MEDS ORDERED: Vancomycin 500 MG SDV ONE (21:25)
[2017-09-03] MEDS: QUETIAPINE 400 MG PO SCH (22:04)
[2017-09-03] MEDS: Acetaminophen/HYDROcodone 325-5 MG Tab PO PRN (22:15)
[2017-09-04] MEDS: Piperacillin/Tazobactam 4.5 GM in Dextrose 5% in Water 100 ML IV SCH ×6 (00:03→16:08)
[2017-09-04] MEDS ORDERED: Temazepam 15 MG Cap PO ONE (00:59)
[2017-09-04] MEDS: Vancomycin 1 GM, Vancomycin 500 MG in Sodium Chloride 0.9% 500 ML IV SCH (05:41)
[2017-09-04] MEDS: QUEtiapine 100 MG Tab PO SCH ×4 (06:04→20:24)
[2017-09-04] MEDS: Pantoprazole 40 MG Tab.CR PO SCH (06:04)
[2017-09-04] MEDS: Potassium Chloride 20 MEQ Tab.ER PO SCH ×2 (07:41→12:34)
[2017-09-04] MEDS: Acetaminophen/HYDROcodone 325-5 MG Tab PO PRN ×2 (07:48→16:19)
[2017-09-04] MEDS: Divalproex Sodium Delayed-Release 500 MG Tab.CR PO SCH ×2 (08:04→20:27)
[2017-09-04] MEDS: Acetaminophen 325 MG Tab PO SCH ×3 (08:05→20:24)
[2017-09-04] MEDS: Vitamin E (dl-alpha-tocopherol acetate) 400 Unit Cap PO SCH ×2 (08:05→20:27)
[2017-09-04] MEDS: levETIRAcetam 500 MG Tab PO SCH ×2 (08:06→20:25)
[2017-09-04] MEDS: Lisinopril 20 MG Tab PO SCH (08:06)
[2017-09-04] MEDS: Calcium Carbonate/Vitamin D3 1500 MG-200 Units Tab PO SCH ×2 (08:06→20:25)
[2017-09-04] MEDS: Furosemide 20 MG Tab PO SCH (08:09)
[2017-09-04] MEDS: cloNIDine 0.1 MG Tab PO SCH ×4 (08:09→20:23)
[2017-09-04] MEDS: Ferrous Sulfate 325 MG Tab PO SCH ×2 (08:09→20:27)
[2017-09-04] MEDS: LORazepam 0.5 MG Tab PO SCH ×4 (08:09→20:22)
[2017-09-04] MEDS: Citalopram 20 MG Tab PO SCH (08:09)
[2017-09-04] MEDS: Mupirocin Oint 22 GM Tube TOP SCH ×2 (08:10→20:38)
[2017-09-04] MEDS: OXcarbazepine 300 MG Tab PO SCH ×2 (08:11→20:29)
--- NOTE | 2017-09-04 08:15 | PCM.PN ---
- General Info Date of Service: 09/04/17 Admission Dx/Problem (Free Text): Admission Diagnosis/Problem Admission Diagnosis/Problem Bacteremia Eros is seen this morning, he was anxious overnight but did sleep some. Spiked a temp again last evening. He is up and ambulatory with nursing. BC preliminary are G+coci in clusters- he is on IV vancomycin, added zosyn yesterday- currently pending C&S- labs are improved today with WBC and CRP trending down. Functional Status: Reports: Pain Controlled, Tolerating Diet, Ambulating, Urinating - Review of Systems General: Reports: Fever, Weakness, Fatigue HEENT: Reports: No Symptoms Pulmonary: Reports: No Symptoms. Denies: Shortness of Breath, Cough Cardiovascular: Reports: No Symptoms. Denies: Chest Pain Gastrointestinal: Reports: No Symptoms. Denies: Abdominal Pain, Nausea, Vomiting Neurological: Reports: Other (baseline autism) Psychiatric: Reports: Anxiety (intermittent) - Patient Data Vitals - Most Recent: Last Vital Signs Temp 100.2 F 09/03/17 20:17 Pulse 104 H 09/04/17 03:21 Resp 20 09/04/17 03:21 BP 136/81 09/04/17 03:21 Pulse Ox 94 L 09/04/17 03:21 Weight - Most Recent: 166 lb 14.4 oz I&O - Last 24 Hours: Intake & Output 09/03/17 09/04/17 09/04/17 22:59 06:59 14:59 Intake Total 1120 1000 Output Total 1550 800 Balance -430 200 Lab Results Last 24 Hours: Laboratory Results - last 24 hr 09/03/17 09/04/17 09/04/17 Range/Units 11:49 06:25 06:25 WBC 10.95 H (4.23-9.07) K/mm3 RBC 3.62 L (4.63-6.08) M/mm3 Hgb 11.6 L (13.7-17.5) gm/L Hct 34.2 L (40.1-51.0) % MCV 94.5 H (79.0-92.2) fl MCH 32.0 (25.7-32.2) pg MCHC 33.9 (32.2-35.5) g/dl RDW Std Deviation 40.6 (35.1-43.9) fL Plt Count 155 L (163-337) K/mm3 MPV 10.4 (9.4-12.3) fl Neut % (Auto) 74.8 H (34.0-67.9) % Lymph % (Auto) 6.0 L (21.8-53.1) % Door % (Auto) 18.2 H (5.3-12.2) % Eos % (Auto) 0.3 L (0.8-7.0) Baso % (Auto) 0.2 (0.1-1.2) % Neut # (Auto) 8.20 H (1.78-5.38) K/mm3 Lymph # (Auto) 0.66 L (1.32-3.57) K/mm3 Door # (Auto) 1.99 H (0.30-0.82) K/mm3 Eos # (Auto) 0.03 L (0.04-0.54) K/mm3 Baso # (Auto) 0.02 (0.01-0.08) K/mm3 Manual Slide Review Abnormal smear Sodium 134 L (136-145) mEq/L Potassium 3.1 L (3.5-5.1) mEq/L Chloride 98 (98-107) mEq/L Carbon Dioxide 29 (21-32) mEq/L Anion Gap 10.1 (5-15) BUN 8 (7-18) mg/dL Creatinine 0.7 (0.7-1.3) mg/dL Est Cr Clr Drug Dosing 143.86 mL/min Estimated GFR (MDRD) > 60 (>60) mL/min BUN/Creatinine Ratio 11.4 L (14-18) Glucose 132 H (74-106) mg/dL Calcium 8.3 L (8.5-10.1) mg/dL Magnesium 1.9 (1.8-2.4) mg/dl C-Reactive Protein 26.7 H* (<1.0) mg/dL Vancomycin Trough 7.9 L (10.0-20.0) Luís Results Last 24 Hours: Microbiology 09/01/17 23:13 Streptococcus pneumoniae Antigen (M - Final Urine Med Orders - Current: Current Medications Acetaminophen (Tylenol) 650 mg PO Q4H PRN PRN Reason: Pain (Mild 1-3)/fever Last Admin: 09/03/17 04:24 Dose: 650 mg Acetaminophen (Tylenol) 650 mg PO TID [facility] Last Admin: 09/03/17 20:17 Dose: 650 mg Hydrocodone Bitart/Acetaminophen ([place] 325-5 Mg) 1 tab PO Q4H PRN PRN Reason: Pain (moderate 4-6) Last Admin: 09/04/17 07:48 Dose: 1 tab Albuterol/Ipratropium (Duoneb 3.0-0.5 Mg/3 Ml) 3 ml NEB Q4H PRN PRN Reason: Shortness Of Breath/wheezing Calcium Carbonate (Calcium Carbonate/Vitamin D 1500 Mg-200 Unit) 1 tab PO BID [facility] Last Admin: 09/03/17 20:19 Dose: 1 tab Cholecalciferol (Vitamin D3) 1,000 units PO BEDTIME [facility] Last Admin: 09/03/17 20:21 Dose: 1,000 units Citalopram Hydrobromide (Celexa) 30 mg PO DAILY [facility] Last Admin: 09/03/17 08:03 Dose: 30 mg Clonidine HCl (Catapres) 0.1 mg PO QID [facility] Last Admin: 09/03/17 20:17 Dose: 0.1 mg Cyclobenzaprine HCl (Flexeril) 10 mg PO BEDTIME [facility] Last Admin: 09/03/17 20:19 Dose: 10 mg Divalproex Sodium (Depakote) 500 mg PO BID [facility] Last Admin: 09/03/17 20:19 Dose: 500 mg Ferrous Sulfate (Ferrous Sulfate) 325 mg PO BID [facility] Last Admin: 09/03/17 20:20 Dose: 325 mg Furosemide (Lasix) 20 mg PO DAILY [facility] Last Admin: 09/03/17 08:03 Dose: 20 mg Hydralazine HCl (Apresoline) 10 mg IVPUSH Q6H PRN PRN Reason: Hypertension Piperacillin Sod/Tazobactam (Sod 4.5 gm/ Dextrose/Water) 100 mls @ 25 mls/hr IV Q8H [facility] Last Admin: 09/04/17 00:03 Dose: 25 mls/hr Vancomycin HCl 1 gm/Vancomycin HCl 500 mg/ Sodium Chloride 500 mls @ 333.333 mls/hr IV Q8H [facility] Last Admin: 09/04/17 05:41 Dose: 333.333 mls/hr Ibuprofen (Motrin) 600 mg PO Q6H PRN PRN Reason: fever Last Admin: 09/03/17 12:09 Dose: 600 mg Imipramine HCl (Imipramine Hcl) 75 mg PO BEDTIME [facility] Last Admin: 09/03/17 20:18 Dose: 75 mg Levetiracetam (Keppra) 1,500 mg PO BID [facility] Last Admin: 09/03/17 20:20 Dose: 1,500 mg Lisinopril (Prinivil) 20 mg PO DAILY [facility] Last Admin: 09/03/17 08:06 Dose: 20 mg Lorazepam (Ativan) 2 mg IVPUSH Q4H PRN PRN Reason: Seizures Lorazepam (Ativan) 0.5 mg PO QID [facility] Last Admin: 09/03/17 20:22 Dose: 0.5 mg Magnesium Sulfate (Pharmacy To Dose - Magnesium Replacement) 0 dose .XX ASDIRECTED PRN PRN Reason: RX TO WATCH MAG LEVELS Metoprolol Tartrate (Lopressor) 5 mg IVPUSH Q4H PRN PRN Reason: Tachycardia Mupirocin (Bactroban Oint) 0 gm TOP BID [facility] Last Admin: 09/03/17 20:36 Dose: 1 applic Oxcarbazepine (Trileptal) 900 mg PO BID [facility] Last Admin: 09/03/17 20:16 Dose: 900 mg Pantoprazole Sodium (Protonix) 40 mg PO DAILY@0700 [facility] Last Admin: 09/04/17 06:04 Dose: 40 mg Clinda-Benzoyl Perox (1-5% Topical) 0 each TOP BEDTIME [facility] Last Admin: 09/03/17 20:54 Dose: Not Given Potassium Chloride (Pharmacy To Dose - Potassium Replacement) 0 dose .XX ASDIRECTED PRN PRN Reason: RX TO WATCH K LEVELS Potassium Chloride (Klor-Con M20) 40 meq PO Q4H [facility] Stop: 09/04/17 11:31 Last Admin: 09/04/17 07:41 Dose: 40 meq Quetiapine Fumarate (Seroquel) 100 mg PO TID@0700,1200,1600 [facility] Last Admin: 09/04/17 06:04 Dose: 100 mg Sodium Chloride (Saline Flush) 10 ml FLUSH ASDIRECTED PRN PRN Reason: Keep Vein Open Last Admin: 09/01/17 12:22 Dose: 10 ml Sodium Chloride (Show Low Nasal Arnold) 0 ml NASBOTH TID PRN PRN Reason: Congestion Vancomycin HCl (Pharmacy To Dose - Vancomycin) 0 dose .XX ASDIRECTED PRN PRN Reason: RX TO DOSE VANCOMYCIN Vitamin E (Vitamin E) 400 units PO BID [facility] Last Admin: 09/03/17 20:19 Dose: 400 units Discontinued Medications Acetaminophen (Tylenol) 975 mg PO NOW ONE Stop: 09/01/17 12:41 Last Admin: 09/01/17 12:53 Dose: 975 mg Diatrizoate Meglum/Diatrizoate Sod (Gastrografin 37%) 90 ml PO ONETIME ONE Stop: 09/01/17 14:53 Last Admin: 09/01/17 15:37 Dose: 90 ml Divalproex Sodium (Depakote) 500 mg PO BID [facility] Sodium Chloride (Normal Saline) 1,000 mls @ 500 mls/hr IV ONETIME ONE Stop: 09/01/17 14:11 Last Admin: 09/01/17 12:20 Dose: 500 mls/hr Sodium Chloride (Normal Saline) 1,000 mls @ 500 mls/hr IV ONETIME ONE Stop: 09/01/17 16:27 Last Admin: 09/01/17 14:29 Dose: 500 mls/hr Ceftriaxone Sodium 2 gm/ (Sodium Chloride) 100 mls @ 200 mls/hr IV ONETIME ONE Stop: 09/01/17 16:26 Last Admin: 09/01/17 16:27 Dose: Not Given Vancomycin HCl 1 gm/ Sodium (Chloride) 250 mls @ 250 mls/hr IV ONETIME ONE Stop: 09/01/17 16:56 Last Admin: 09/01/17 17:11 Dose: 250 mls/hr Ceftriaxone Sodium 2 gm/ (Sodium Chloride) 100 mls @ 200 mls/hr IV ONETIME STA Stop: 09/01/17 16:39 Last Admin: 09/01/17 16:26 Dose: 200 mls/hr Sodium Chloride (Normal Saline) 1,000 mls @ 150 mls/hr IV ASDIRECTED [facility] Last Admin: 09/01/17 17:19 Dose: 150 mls/hr Ceftriaxone Sodium 2 gm/ (Sodium Chloride) 100 mls @ 200 mls/hr IV Q24H [place] Sodium Chloride (Normal Saline) 1,000 mls @ 100 mls/hr IV ASDIRECTED [facility] Stop: 09/03/17 04:44 Last Admin: 09/02/17 01:52 Dose: 100 mls/hr Vancomycin HCl 1 gm/ Sodium (Chloride) 250 mls @ 250 mls/hr IV Q12H [facility] Last Admin: 09/02/17 04:23 Dose: 250 mls/hr Ceftriaxone Sodium 2 gm/ (Dextrose/Water) 100 mls @ 200 mls/hr IV Q24H [facility] Last Admin: 09/02/17 16:08 Dose: 200 mls/hr Vancomycin HCl 1 gm/ Sodium (Chloride) 250 mls @ 250 mls/hr IV Q8H [facility] Last Admin: 09/03/17 18:25 Dose: Not Given Piperacillin Sod/Tazobactam (Sod 4.5 gm/ Dextrose/Water) 100 mls @ 200 mls/hr IV ONETIME ONE Stop: 09/03/17 09:29 Last Admin: 09/03/17 09:13 Dose: 200 mls/hr Vancomycin HCl 1 gm/Vancomycin HCl 500 mg/ Sodium Chloride 500 mls @ 500 mls/ hr IV Q8H [facility] Last Admin: 09/03/17 18:27 Dose: Not Given Sodium Chloride 3gm (Tablet) 3 gm PO TID [facility] Omeprazole (Omeprazole) 40 mg PO DAILY [facility] Ondansetron HCl (Zofran) 4 mg IVPUSH ONETIME ONE Stop: 09/01/17 12:13 Last Admin: 09/01/17 12:21 Dose: 4 mg Oral Electrolytes (Thermotabs) 1 each PO ONETIME ONE Stop: 09/03/17 21:01 Last Admin: 09/03/17 20:18 Dose: 1 each Quetiapine [Seroquel (Xr] 400 Mg) 0 each PO BEDTIME [facility] Last Admin: 09/03/17 22:04 Dose: Not Given Temazepam (Restoril) 15 mg PO ONETIME ONE Stop: 09/04/17 01:00 Last Admin: 09/04/17 01:22 Dose: 15 mg Vancomycin HCl (Vancomycin) Confirm Administered Dose 500 mg .ROUTE .STK-MED ONE Stop: 09/03/17 21:26 Last Admin: 09/03/17 21:50 Dose: 500 mg Vancomycin HCl (Vancomycin) Confirm Administered Dose 1 gm .ROUTE .STK-MED ONE Stop: 09/03/17 21:26 Last Admin: 09/03/17 21:50 Dose: 1 gm - Exam Quality Assessment: DVT Prophylaxis General: Alert, Cooperative, No Acute Distress HEENT: Pupils Equal, EOMI, Mucous Membr. Moist/[place] Neck: Supple Lungs: Normal Respiratory Effort, Decreased Breath Sounds Cardiovascular: Regular Rate, Regular Rhythm GI/Abdominal Exam: Normal Bowel Sounds, Soft, Non-Tender. No: Distended, Guarding, Rigid, Rebound (Male) Exam: Deferred Back Exam: Normal Inspection Extremities: No Pedal Edema, Normal Capillary Refill Peripheral Pulses: 2+: Dorsalis Pedis (L), Dorsalis Pedis (R) Neurological: Other (baseline autism and mild MR; communicates with yes/no to chin or nose- appropriate in responses with that today.) Psy/Mental Status: Alert - Problem List & Annotations (1) Bacteremia due to Gram-positive bacteria SNOMED Code(s): 495413319203 Code(s): R78.81 - BACTEREMIA Status: Acute Priority: High Current Visit : Yes (2) Acute renal injury SNOMED Code(s): 22257576 Code(s): N17.9 - ACUTE KIDNEY FAILURE, UNSPECIFIED Status: Resolved Priority: High Current Visit: Yes (3) Elevated C-reactive protein (CRP) SNOMED Code(s): 585808342107618 Code(s): R79.82 - ELEVATED C-REACTIVE PROTEIN (CRP) Status: Acute Priority: High Current Visit: Yes (4) Elevated white blood cell count SNOMED Code(s): 283598178 Code(s): D72.829 - ELEVATED WHITE BLOOD CELL COUNT, UNSPECIFIED Status: Acute Priority: High Current Visit: Yes Qualifiers: Leukocytosis type: bandemia Qualified Code(s): D72.825 - Bandemia (5) Fever SNOMED Code(s): 787769841 Code(s): R50.9 - FEVER, UNSPECIFIED Status: Acute Priority: High Current Visit: Yes Qualifiers: Fever type: unspecified Qualified Code(s): R50.9 - Fever, unspecified (6) Nausea & vomiting SNOMED Code(s): 98904372 Code(s): R11.2 - NAUSEA WITH VOMITING, UNSPECIFIED Status: Acute Priority : High Current Visit: Yes Qualifiers: Vomiting type: unspecified Vomiting Intractability: non-intractable Qualified Code(s): R11.2 - Nausea with vomiting, unspecified - Problem List Review Problem List Initiated/Reviewed/Updated: Yes - My Orders Last 24 Hours: My Active Orders 09/03/17 09:00 Acetaminophen [Tylenol] 650 mg PO TID 09/03/17 17:00 Piperacillin/Tazobactam [Zosyn] 4.5 gm Dextrose 5% in Water 100 ml IV Q8H Blood Culture x2 Reflex Set [OM.PC] ONETIME 09/03/17 17:20 CULTURE BLOOD [] Stat 09/03/17 17:28 CULTURE BLOOD [] Stat - Plan Plan:: I/P: Acute: SIRS--- Bacteremia with gram + cocci in clusters thus far on , awaiting further C&S. -WBC 14.04-->13.2 -CRP 47.1 -Lactic acid 1.2 -Fever of 102.6 on admit-- spiked again last evening; scheduled tylenol TID with PRN motrin orders -N&V--? 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 -Given 2L of fluid in ED -Fluids as ordered -IV vancomycin and Rocephin started in ED - continue; pharmacy to dose vancomycin---zosyn added yesterday with good lab response- drop in WBC and CRP this morning. -Add Florastor -Antiemeteics -Viral panel negative, -Strep pneumonia negative, -Mycoplasma pneumonia - negative, -Strep screen - negative Mild Hypokalemia- -Replete and monitor with daily labs -Mag WNL at 1.9 Mild hyponatremia--134 -Monitor and follow am labs -Thermotab one time dose this morning. Resolved Acute Kidney injury--resolved -Unsure of baseline -BUN 27, Creatinine 1.8, eGFR 43---creat 0.7 and stable -2L fluids given in ED -Fluids as ordered -Avoid nephrotoxic drugs -Monitor AM labs Chronic: GERD - home meds seizures - home meds anxiety - home meds autism and mild mental retardation vitamin D deficiency - home meds acne- home meds scoliosis Pica---He is on a fluid restricted diet as he consumes excessive amounts of liquids which deplete his sodium. Plan: Admit to medical floor on telemetry- cont current POC pending BC C&S-- plan 4 days of IV abx tentatively. Repeat BC pending, should be resulted for initial 24 hours at 1700 tonight. CM for discharge planning---plans DC back to longterm when ready PT for strengthening Other orders as indicated above Home medications as indicated Routine AM labs GI Prophylaxis - home PPI DVT/PE prophylaxis: SARAH olivier Code status: Full Code; PCP: Dr. Valdovinos at [facility] here in [place].
[2017-09-04] MEDS ORDERED: Potassium Chloride/Sodium Chloride Tab PO STA (09:29)
[2017-09-04] MEDS: Docusate Sodium 100 MG Cap PO SCH ×2 (10:05→20:27)
[2017-09-04] MEDS: Saccharomyces Boulardii (Probiotic) 250 MG Cap PO SCH ×2 (10:06→20:27)
[2017-09-04] MEDS ORDERED: diphenhydrAMINE 50 MG/ML SDV IVPUSH PRN (12:54)
[2017-09-04] MEDS ORDERED: Ondansetron 4 MG/2 ML SDV IVPUSH PRN (18:16)
[2017-09-04] MEDS: Cholecalciferol (Vitamin D3) 1,000 Unit Tab PO SCH (20:23)
[2017-09-04] MEDS: Cyclobenzaprine 10 MG Tab PO SCH (20:23)
[2017-09-04] MEDS: Sodium Chloride 1 GM Tab PO SCH (20:30)
[2017-09-05] MEDS: Piperacillin/Tazobactam 4.5 GM in Dextrose 5% in Water 100 ML IV SCH ×6 (00:56→17:22)
[2017-09-05] MEDS: BENZOYL PEROXIDE TOP SCH ×2 (03:18→21:33)
[2017-09-05] MEDS: CLINDAMYCIN TOP SCH ×2 (03:18→21:33)
[2017-09-05] MEDS: QUEtiapine 100 MG Tab PO SCH ×4 (06:05→21:25)
[2017-09-05] MEDS: Pantoprazole 40 MG Tab.CR PO SCH (06:05)
[2017-09-05] MEDS: Saccharomyces Boulardii (Probiotic) 250 MG Cap PO SCH ×2 (08:50→21:21)
[2017-09-05] MEDS: Vitamin E (dl-alpha-tocopherol acetate) 400 Unit Cap PO SCH ×2 (08:50→21:21)
[2017-09-05] MEDS: Divalproex Sodium Delayed-Release 500 MG Tab.CR PO SCH ×3 (08:50→21:44)
[2017-09-05] MEDS: Acetaminophen 325 MG Tab PO SCH ×3 (08:50→21:22)
[2017-09-05] MEDS: Lisinopril 20 MG Tab PO SCH (08:50)
[2017-09-05] MEDS: Furosemide 20 MG Tab PO SCH (08:51)
[2017-09-05] MEDS: LORazepam 0.5 MG Tab PO SCH ×4 (08:51→21:34)
[2017-09-05] MEDS: Docusate Sodium 100 MG Cap PO SCH ×2 (08:51→21:22)
[2017-09-05] MEDS: Calcium Carbonate/Vitamin D3 1500 MG-200 Units Tab PO SCH ×2 (08:51→21:25)
[2017-09-05] MEDS: levETIRAcetam 500 MG Tab PO SCH ×2 (08:51→21:23)
[2017-09-05] MEDS: Citalopram 20 MG Tab PO SCH (08:51)
[2017-09-05] MEDS: Ferrous Sulfate 325 MG Tab PO SCH ×2 (08:51→21:22)
[2017-09-05] MEDS: cloNIDine 0.1 MG Tab PO SCH ×4 (08:51→21:21)
[2017-09-05] MEDS: OXcarbazepine 300 MG Tab PO SCH ×2 (08:52→21:23)
[2017-09-05] MEDS: Mupirocin Oint 22 GM Tube TOP SCH ×2 (08:53→21:20)
[2017-09-05] MEDS: Sodium Chloride 1 GM Tab PO SCH ×3 (08:53→21:33)
--- NOTE | 2017-09-05 09:13 | PCM.PN ---
- General Info Date of Service: 09/05/17 Admission Dx/Problem (Free Text): Admission Diagnosis/Problem Admission Diagnosis/Problem Bacteremia Eros is seen this morning, he was anxious overnight but did sleep some; 1:1 staff reported he was "pretty restless most of the night". Temps the last 24 hours have been 98-100F. He continues to be anxious. BC returned + for staph aureus, not MRSA yesterday. Vancomycin is DC'd, he continues on Zosyn IV. Functional Status: Reports: Pain Controlled (denies c/o pain), Tolerating Diet, Ambulating, Urinating - Review of Systems General: Reports: Weakness (improving), Fatigue HEENT: Reports: No Symptoms Pulmonary: Reports: No Symptoms. Denies: Shortness of Breath, Cough (is not coughing) Cardiovascular: Reports: No Symptoms. Denies: Chest Pain Gastrointestinal: Reports: No Symptoms. Denies: Diarrhea, Nausea, Vomiting Neurological: Reports: Other (autism and mild MR- is noncommunicative verbally but does signal yes/no by touching nose or chin.) Psychiatric: Reports: Anxiety - Patient Data Vitals - Most Recent: Last Vital Signs Temp 99.3 F 09/05/17 07:54 Pulse 97 09/05/17 07:23 Resp 21 H 09/05/17 07:23 BP 154/92 H 09/05/17 08:51 Pulse Ox 92 L 09/05/17 07:23 Weight - Most Recent: 163 lb I&O - Last 24 Hours: Intake & Output 09/04/17 09/05/17 09/05/17 22:59 06:59 14:59 Intake Total 840 600 Output Total 2375 1125 Balance -1535 -525 Lab Results Last 24 Hours: Laboratory Results - last 24 hr 09/05/17 09/05/17 Range/Units 05:55 05:55 WBC 11.91 H (4.23-9.07) K/mm3 RBC 3.89 L (4.63-6.08) M/mm3 Hgb 12.1 L (13.7-17.5) gm/L Hct 37.0 L (40.1-51.0) % MCV 95.1 H (79.0-92.2) fl MCH 31.1 (25.7-32.2) pg MCHC 32.7 (32.2-35.5) g/dl RDW Std Deviation 41.8 (35.1-43.9) fL Plt Count 203 (163-337) K/mm3 MPV 9.7 (9.4-12.3) fl Neut % (Auto) 69.4 H (34.0-67.9) % Lymph % (Auto) 9.6 L (21.8-53.1) % [place] % (Auto) 18.4 H (5.3-12.2) % Eos % (Auto) 0.9 (0.8-7.0) Baso % (Auto) 0.4 (0.1-1.2) % Neut # (Auto) 8.27 H (1.78-5.38) K/mm3 Lymph # (Auto) 1.14 L (1.32-3.57) K/mm3 [place] # (Auto) 2.19 H (0.30-0.82) K/mm3 Eos # (Auto) 0.11 (0.04-0.54) K/mm3 Baso # (Auto) 0.05 (0.01-0.08) K/mm3 Manual Slide Review Abnormal smear Sodium 136 (136-145) mEq/L Potassium 3.9 (3.5-5.1) mEq/L Chloride 99 (98-107) mEq/L Carbon Dioxide 26 (21-32) mEq/L Anion Gap 14.9 (5-15) BUN 9 (7-18) mg/dL Creatinine 0.7 (0.7-1.3) mg/dL Est Cr Clr Drug Dosing 143.86 mL/min Estimated GFR (MDRD) > 60 (>60) mL/min BUN/Creatinine Ratio 12.9 L (14-18) Glucose 121 H (74-106) mg/dL Calcium 9.0 (8.5-10.1) mg/dL Magnesium 1.9 (1.8-2.4) mg/dl C-Reactive Protein 25.7 H* (<1.0) mg/dL Luís Results Last 24 Hours: Microbiology 09/03/17 17:20 Aerobic Blood Culture - Preliminary Blood - Venous Gram Positive Cocci In Clustrs Anaerobic Blood Culture - Preliminary NO GROWTH AFTER 1 DAY 09/03/17 17:28 Aerobic Blood Culture - Preliminary Blood - Venous - Lab Draw NO GROWTH AFTER 1 DAY Anaerobic Blood Culture - Preliminary NO GROWTH AFTER 1 DAY Med Orders - Current: Current Medications Acetaminophen (Tylenol) 650 mg PO Q4H PRN PRN Reason: Pain (Mild 1-3)/fever Last Admin: 09/03/17 04:24 Dose: 650 mg Acetaminophen (Tylenol) [address] [facility] Last Admin: 09/05/17 08:50 Dose: 650 mg Hydrocodone Bitart/Acetaminophen ([place] 325-5 Mg) 1 tab PO Q4H PRN PRN Reason: Pain (moderate 4-6) Last Admin: 09/04/17 16:19 Dose: 1 tab Albuterol/Ipratropium (Duoneb 3.0-0.5 Mg/3 Ml) 3 ml NEB Q4H PRN PRN Reason: Shortness Of Breath/wheezing Calcium Carbonate (Calcium Carbonate/Vitamin D 1500 Mg-200 Unit) [address] [facility] Last Admin: 09/05/17 08:51 Dose: 1 tab Cholecalciferol (Vitamin D3) 1,[address] [facility] Last Admin: 09/04/17 20:23 Dose: 1,000 units Citalopram Hydrobromide (Celexa) [address] [facility] Last Admin: 09/05/17 08:51 Dose: 30 mg Clonidine HCl (Catapres) 0.[address] [facility] Last Admin: 09/05/17 08:51 Dose: 0.1 mg Cyclobenzaprine HCl (Flexeril) [address] [facility] Last Admin: 09/04/17 20:23 Dose: 10 mg Diphenhydramine HCl (Benadryl) 25 mg IVPUSH Q4H PRN PRN Reason: Itching Last Admin: 09/04/17 13:22 Dose: 25 mg Divalproex Sodium (Depakote) [address] [facility] Last Admin: 09/05/17 08:50 Dose: 500 mg Docusate Sodium (Colace) [address] [facility] Last Admin: 09/05/17 08:51 Dose: 100 mg Ferrous Sulfate (Ferrous Sulfate) [address] [facility] Last Admin: 09/05/17 08:51 Dose: 325 mg Furosemide (Lasix) [address] [facility] Last Admin: 09/05/17 08:51 Dose: 20 mg Hydralazine HCl (Apresoline) 10 mg IVPUSH Q6H PRN PRN Reason: Hypertension Piperacillin Sod/Tazobactam (Sod 4.5 gm/ Dextrose/Water) 100 mls @ 25 mls/hr IV Q8H [facility] Last Admin: 09/05/17 08:54 Dose: 25 mls/hr Ibuprofen (Motrin) 600 mg PO Q6H PRN PRN Reason: fever Last Admin: 09/03/17 12:09 Dose: 600 mg Imipramine HCl (Imipramine Hcl) [address] [facility] Last Admin: 09/04/17 20:22 Dose: 75 mg Levetiracetam (Keppra) 1,[address] [facility] Last Admin: 09/05/17 08:51 Dose: 1,500 mg Lisinopril (Prinivil) [address] [facility] Last Admin: 09/05/17 08:50 Dose: 20 mg Lorazepam (Ativan) 2 mg IVPUSH Q4H PRN PRN Reason: Seizures Lorazepam (Ativan) 0.[address] [facility] Last Admin: 09/05/17 08:51 Dose: 0.5 mg Metoprolol Tartrate (Lopressor) 5 mg IVPUSH Q4H PRN PRN Reason: Tachycardia Metoprolol Tartrate (Lopressor) [address] [facility] Mupirocin (Bactroban Oint) [address] [facility] Last Admin: 09/05/17 08:53 Dose: 1 applic Non-Formulary Medication (Multivitamin) [address] [facility] Ondansetron HCl (Zofran) 4 mg IVPUSH Q4H PRN PRN Reason: Nausea Last Admin: 09/04/17 18:30 Dose: 4 mg Oxcarbazepine (Trileptal) [address] [facility] Last Admin: 09/05/17 08:52 Dose: 900 mg Pantoprazole Sodium (Protonix) 40 mg PO DAILY@0700 [facility] Last Admin: 09/05/17 06:05 Dose: 40 mg Clinda-Benzoyl Perox (1-5% Topical) [address] [facility] Last Admin: 09/05/17 03:18 Dose: Not Given Sodium Chloride 1 Gm (Tab) [address] [facility] Last Admin: 09/05/17 08:53 Dose: 3 each Quetiapine Fumarate (Seroquel) 100 mg PO TID@0700,1200,1600 [facility] Last Admin: 09/05/17 06:05 Dose: 100 mg Quetiapine Fumarate (Seroquel) [address] [facility] Last Admin: 09/04/17 20:24 Dose: 400 mg Saccharomyces Boulardii (Florastor) [address] [facility] Last Admin: 09/05/17 08:50 Dose: 250 mg Sodium Chloride (Saline Flush) 10 ml FLUSH ASDIRECTED PRN PRN Reason: Keep Vein Open Last Admin: 09/01/17 12:22 Dose: 10 ml Sodium Chloride ([place] Nasal [place]) 0 ml NASBOTH TID PRN PRN Reason: Congestion Vitamin E (Vitamin E) [address] [facility] Last Admin: 09/05/17 08:50 Dose: 400 units Discontinued Medications Acetaminophen (Tylenol) 975 mg PO NOW ONE Stop: 09/01/17 12:41 Last Admin: 09/01/17 12:53 Dose: 975 mg Diatrizoate Meglum/Diatrizoate Sod (Gastrografin 37%) 90 ml PO ONETIME ONE Stop: 09/01/17 14:53 Last Admin: 09/01/17 15:37 Dose: 90 ml Divalproex Sodium (Depakote) [address] [facility] Sodium Chloride (Normal Saline) 1,000 mls @ 500 mls/hr IV ONETIME ONE Stop: 09/01/17 14:11 Last Admin: 09/01/17 12:20 Dose: 500 mls/hr Sodium Chloride (Normal Saline) 1,000 mls @ 500 mls/hr IV ONETIME ONE Stop: 09/01/17 16:27 Last Admin: 09/01/17 14:29 Dose: 500 mls/hr Ceftriaxone Sodium 2 gm/ (Sodium Chloride) 100 mls @ 200 mls/hr IV ONETIME ONE Stop: 09/01/17 16:26 Last Admin: 09/01/17 16:27 Dose: Not Given Vancomycin HCl 1 gm/ Sodium (Chloride) 250 mls @ 250 mls/hr IV ONETIME ONE Stop: 09/01/17 16:56 Last Admin: 09/01/17 17:11 Dose: 250 mls/hr Ceftriaxone Sodium 2 gm/ (Sodium Chloride) 100 mls @ 200 mls/hr IV ONETIME STA Stop: 09/01/17 16:39 Last Admin: 09/01/17 16:26 Dose: 200 mls/hr Sodium Chloride (Normal Saline) 1,000 mls @ 150 mls/hr IV ASDIRECTED [facility] Last Admin: 09/01/17 17:19 Dose: 150 mls/hr Ceftriaxone Sodium 2 gm/ (Sodium Chloride) 100 mls @ 200 mls/hr IV Q24H [facility] Sodium Chloride (Normal Saline) 1,000 mls @ 100 mls/hr IV ASDIRECTED [facility] Stop: 09/03/17 04:44 Last Admin: 09/02/17 01:52 Dose: 100 mls/hr Vancomycin HCl 1 gm/ Sodium (Chloride) 250 mls @ 250 mls/hr IV Q12H [facility] Last Admin: 09/02/17 04:23 Dose: 250 mls/hr Ceftriaxone Sodium 2 gm/ (Dextrose/Water) 100 mls @ 200 mls/hr IV Q24H [facility] Last Admin: 09/02/17 16:08 Dose: 200 mls/hr Vancomycin HCl 1 gm/ Sodium (Chloride) 250 mls @ 250 mls/hr IV Q8H [facility] Last Admin: 09/03/17 18:25 Dose: Not Given Piperacillin Sod/Tazobactam (Sod 4.5 gm/ Dextrose/Water) 100 mls @ 200 mls/hr IV ONETIME ONE Stop: 09/03/17 09:29 Last Admin: 09/03/17 09:13 Dose: 200 mls/hr Vancomycin HCl 1 gm/Vancomycin HCl 500 mg/ Sodium Chloride 500 mls @ 500 mls/ hr IV Q8H [facility] Last Admin: 09/03/17 18:27 Dose: Not Given Vancomycin HCl 1 gm/Vancomycin HCl 500 mg/ Sodium Chloride 500 mls @ 333.333 mls/hr IV Q8H [facility] Last Admin: 09/04/17 05:41 Dose: 333.333 mls/hr Magnesium Sulfate (Pharmacy To Dose - Magnesium Replacement) 0 dose .XX ASDIRECTED PRN PRN Reason: RX TO WATCH MAG LEVELS Sodium Chloride 3gm (Tablet) [address] [facility] Omeprazole (Omeprazole) 40 mg PO DAILY [facility] Ondansetron HCl (Zofran) 4 mg IVPUSH ONETIME ONE Stop: 09/01/17 12:13 Last Admin: 09/01/17 12:21 Dose: 4 mg Oral Electrolytes (Thermotabs) 1 each PO ONETIME ONE Stop: 09/03/17 21:01 Last Admin: 09/03/17 20:18 Dose: 1 each Oral Electrolytes (Thermotabs) 1 each PO NOW STA Stop: 09/04/17 09:30 Last Admin: 09/04/17 10:05 Dose: 1 each Quetiapine [Seroquel (Xr] 400 Mg) 0 each PO BEDTIME [facility] Last Admin: 09/03/17 22:04 Dose: Not Given Potassium Chloride (Pharmacy To Dose - Potassium Replacement) 0 dose .XX ASDIRECTED PRN PRN Reason: RX TO WATCH K LEVELS Potassium Chloride (Klor-Con M20) [address] [facility] Stop: 09/04/17 11:31 Last Admin: 09/04/17 12:34 Dose: 40 meq Temazepam (Restoril) 15 mg PO ONETIME ONE Stop: 09/04/17 01:00 Last Admin: 09/04/17 01:22 Dose: 15 mg Vancomycin HCl (Pharmacy To Dose - Vancomycin) 0 dose .XX ASDIRECTED PRN PRN Reason: RX TO DOSE VANCOMYCIN Vancomycin HCl (Vancomycin) Confirm Administered Dose 500 mg .ROUTE .STK-MED ONE Stop: 09/03/17 21:26 Last Admin: 09/03/17 21:50 Dose: 500 mg Vancomycin HCl (Vancomycin) Confirm Administered Dose 1 gm .ROUTE .STK-MED ONE Stop: 09/03/17 21:26 Last Admin: 09/03/17 21:50 Dose: 1 gm - Exam Quality Assessment: DVT Prophylaxis General: Alert, Cooperative, No Acute Distress HEENT: Pupils Equal, EOMI, Mucous Membr. Moist/[place], Other (pupils are 4+ and = bilat) Neck: Supple Lungs: Normal Respiratory Effort, Decreased Breath Sounds (bases bilat; poor insp effort this morning despite encouragement) Cardiovascular: Regular Rate, Regular Rhythm, No Murmurs GI/Abdominal Exam: Normal Bowel Sounds, Soft, Non-Tender. No: No Organomegaly, Distended, Guarding, Rigid, Rebound (Male) Exam: Deferred Extremities: Normal Inspection, No Pedal Edema, Normal Capillary Refill Peripheral Pulses: 2+: Dorsalis Pedis (L), Dorsalis Pedis (R) Neurological: Other (autism and mild MR- no verbal communication. Patient gently pushes/nudges me away today after exam is completed. ) Psy/Mental Status: Alert, Anxious - Problem List & Annotations (1) Bacteremia due to Gram-positive bacteria SNOMED Code(s): 114173830432 Code(s): R78.81 - BACTEREMIA Status: Acute Priority: High Current Visit : Yes Annotation/Comment:: staph aureus, not MRSA (2) Acute renal injury SNOMED Code(s): 98134373 Code(s): N17.9 - ACUTE KIDNEY FAILURE, UNSPECIFIED Status: Resolved Priority: High Current Visit: Yes (3) Elevated C-reactive protein (CRP) SNOMED Code(s): 516934628130293 Code(s): R79.82 - ELEVATED C-REACTIVE PROTEIN (CRP) Status: Acute Priority: High Current Visit: Yes (4) Elevated white blood cell count SNOMED Code(s): 884289499 Code(s): D72.829 - ELEVATED WHITE BLOOD CELL COUNT, UNSPECIFIED Status: Acute Priority: High Current Visit: Yes Qualifiers: Leukocytosis type: bandemia Qualified Code(s): D72.825 - Bandemia (5) Fever SNOMED Code(s): 230203691 Code(s): R50.9 - FEVER, UNSPECIFIED Status: Acute Priority: High Current Visit: Yes Qualifiers: Fever type: unspecified Qualified Code(s): R50.9 - Fever, unspecified (6) Nausea & vomiting SNOMED Code(s): 55233474 Code(s): R11.2 - NAUSEA WITH VOMITING, UNSPECIFIED Status: Resolved Priority: High Current Visit: Yes Qualifiers: Vomiting type: unspecified Vomiting Intractability: non-intractable Qualified Code(s): R11.2 - Nausea with vomiting, unspecified - Problem List Review Problem List Initiated/Reviewed/Updated: Yes - My Orders Last 24 Hours: My Active Orders 09/04/17 09:45 Docusate Sodium [Colace] 100 mg PO BID Saccharomyces Boulardii [Florastor] 250 mg PO BID 09/04/17 12:54 diphenhydrAMINE [Benadryl] 25 mg IVPUSH Q4H PRN 09/05/17 09:15 Metoprolol Tartrate [Lopressor] 25 mg PO Q12HR 09/05/17 21:00 Multivitamin 1 cap PO BEDTIME 09/06/17 05:11 BASIC METABOLIC PANEL,BMP [CHEM] AM C-REACTIVE PROTEIN [CHEM] AM CBC WITH AUTO DIFF [HEME] AM MAGNESIUM [CHEM] AM 09/07/17 05:11 BASIC METABOLIC PANEL,BMP [CHEM] AM C-REACTIVE PROTEIN [CHEM] AM CBC WITH AUTO DIFF [HEME] AM MAGNESIUM [CHEM] AM 09/08/17 05:11 BASIC METABOLIC PANEL,BMP [CHEM] AM C-REACTIVE PROTEIN [CHEM] AM CBC WITH AUTO DIFF [HEME] AM MAGNESIUM [CHEM] AM 09/09/17 05:11 BASIC METABOLIC PANEL,BMP [CHEM] AM C-REACTIVE PROTEIN [CHEM] AM CBC WITH AUTO DIFF [HEME] AM MAGNESIUM [CHEM] AM 09/10/17 05:11 BASIC METABOLIC PANEL,BMP [CHEM] AM C-REACTIVE PROTEIN [CHEM] AM CBC WITH AUTO DIFF [HEME] AM MAGNESIUM [CHEM] AM - Plan Plan:: I/P: Acute: SIRS--- Bacteremia with gram + cocci in clusters thus far on BC, awaiting further C&S. -WBC 14.04-->13.2-->10K -CRP 47.1-->slowly trending down, is 25 today -Lactic acid 1.2 -Fever of 102.6 on admit; N&V--? resolved thus far in hospital stay -UA, CXR, abdomen X-ray, AB/pelvis CT, influenza, strep - all negative -Blood cultures obtained; staph aureus, not MRSA. Repeat obtained 48 hours later with 1/4 still + for G+C. Will repeat again at 48 hr christiana -[employer] reports type of gastroenteritis going around [facility] homes recently-- per notes, all house mates and staff at his residence are now ill. -Given 2L of fluid in ED -Fluids as ordered -IV vancomycin and Rocephin started in ED - BC results returned as above, not MRSA- Vancomycin DC'd, continue Zosyn with positive but slow response. -Add Florastor -Antiemeteics -Viral panel negative, -Strep pneumonia negative, -Mycoplasma pneumonia - negative, -Strep screen - negative Mild Hypokalemia---normal/resolved today- cont to follow -Replete and monitor with daily labs -Mag WNL at 1.9 Mild hyponatremia--134---normal/resolved today--cont to follow -Monitor and follow am labs -Thermotab one time dose this morning. Resolved Acute Kidney injury--resolved -Unsure of baseline -BUN 27, Creatinine 1.8, eGFR 43---creat 0.7 and stable -2L fluids given in ED -Fluids as ordered -Avoid nephrotoxic drugs -Monitor AM labs Chronic: GERD - home meds seizures - home meds, no sz activity thus far anxiety - home meds autism and mild mental retardation vitamin D deficiency - home meds acne- home meds scoliosis Pica---He is on a fluid restricted diet as he consumes excessive amounts of liquids which deplete his sodium. Plan: Admit to medical floor on telemetry CM for discharge planning---plans DC back to skilled nursing when ready--repeat BC + 1/4 bottles for G+C, will need repeat again in 48 hours. No DC until BC clear. Cont current POC with IV abx and close monitoring. PT for strengthening Home medications as indicated Routine AM labs GI Prophylaxis - home PPI DVT/PE prophylaxis: SARAH olivier Code status: Full Code; PCP: Dr. Valdovinos at [facility] here in [place].
[2017-09-05] MEDS: Metoprolol Tartrate 25 MG Tab PO SCH ×2 (09:34→21:26)
[2017-09-05] MEDS: Cyclobenzaprine 10 MG Tab PO SCH (21:24)
[2017-09-05] MEDS: Multivitamins,Therapeutic Tab PO SCH (21:24)
[2017-09-05] MEDS: Cholecalciferol (Vitamin D3) 1,000 Unit Tab PO SCH (21:24)
[2017-09-06] MEDS: Piperacillin/Tazobactam 4.5 GM in Dextrose 5% in Water 100 ML IV SCH ×6 (00:22→17:47)
[2017-09-06] MEDS: Pantoprazole 40 MG Tab.CR PO SCH (06:07)
[2017-09-06] MEDS: QUEtiapine 100 MG Tab PO SCH ×4 (06:08→20:54)
[2017-09-06] MEDS: Saccharomyces Boulardii (Probiotic) 250 MG Cap PO SCH ×2 (08:24→20:45)
[2017-09-06] MEDS: Docusate Sodium 100 MG Cap PO SCH ×2 (08:25→20:48)
[2017-09-06] MEDS: Calcium Carbonate/Vitamin D3 1500 MG-200 Units Tab PO SCH ×2 (08:25→20:46)
[2017-09-06] MEDS: cloNIDine 0.1 MG Tab PO SCH ×4 (08:26→20:57)
[2017-09-06] MEDS: Vitamin E (dl-alpha-tocopherol acetate) 400 Unit Cap PO SCH ×2 (08:28→20:46)
[2017-09-06] MEDS: Furosemide 20 MG Tab PO SCH (08:29)
[2017-09-06] MEDS: Ferrous Sulfate 325 MG Tab PO SCH ×2 (08:29→20:48)
[2017-09-06] MEDS: LORazepam 0.5 MG Tab PO SCH ×4 (08:30→20:46)
[2017-09-06] MEDS: Citalopram 20 MG Tab PO SCH (08:30)
[2017-09-06] MEDS: Lisinopril 20 MG Tab PO SCH (08:30)
[2017-09-06] MEDS: Acetaminophen 325 MG Tab PO SCH ×3 (08:31→20:47)
[2017-09-06] MEDS: Divalproex Sodium Delayed-Release 500 MG Tab.CR PO SCH ×2 (08:31→20:46)
[2017-09-06] MEDS: OXcarbazepine 300 MG Tab PO SCH ×2 (08:33→20:54)
[2017-09-06] MEDS: levETIRAcetam 500 MG Tab PO SCH ×2 (08:33→20:46)
[2017-09-06] MEDS: Metoprolol Tartrate 25 MG Tab PO SCH ×2 (08:33→20:57)
[2017-09-06] MEDS: Mupirocin Oint 22 GM Tube TOP SCH ×2 (08:41→20:41)
[2017-09-06] MEDS: Sodium Chloride 1 GM Tab PO SCH ×3 (08:49→20:45)
[2017-09-06] MEDS ORDERED: hydrALAZINE 20 MG/ML SDV IVPUSH PRN (13:43)
--- NOTE | 2017-09-06 13:46 | PCM.PN ---
- General Info Date of Service: 09/06/17 Functional Status: Reports: Tolerating Diet, Ambulating, Urinating - Review of Systems General: Reports: No Symptoms HEENT: Reports: No Symptoms Pulmonary: Reports: No Symptoms Cardiovascular: Reports: No Symptoms Gastrointestinal: Reports: No Symptoms Genitourinary: Reports: No Symptoms Musculoskeletal: Reports: No Symptoms Skin: Reports: No Symptoms Neurological: Reports: No Symptoms Psychiatric: Reports: No Symptoms - Patient Data Vitals - Most Recent: Last Vital Signs Temp 36.9 C 09/06/17 13:27 Pulse 91 09/06/17 13:27 Resp 20 09/06/17 13:27 BP 131/93 H 09/06/17 13:27 Pulse Ox 95 09/06/17 13:27 Weight - Most Recent: 72.393 kg I&O - Last 24 Hours: Intake & Output 09/05/17 09/06/17 09/06/17 22:59 06:59 14:59 Intake Total 680 600 120 Output Total 650 1275 Balance 30 -675 120 Lab Results Last 24 Hours: Laboratory Results - last 24 hr 09/06/17 09/06/17 Range/Units 05:55 05:55 WBC 12.75 H (4.23-9.07) K/mm3 RBC 4.01 L (4.63-6.08) M/mm3 Hgb 12.4 L (13.7-17.5) gm/L Hct 38.1 L (40.1-51.0) % MCV 95.0 H (79.0-92.2) fl MCH 30.9 (25.7-32.2) pg MCHC 32.5 (32.2-35.5) g/dl RDW Std Deviation 42.4 (35.1-43.9) fL Plt Count 244 (163-337) K/mm3 MPV 10.0 (9.4-12.3) fl Neut % (Auto) 63.4 (34.0-67.9) % Lymph % (Auto) 11.8 L (21.8-53.1) % [place] % (Auto) 17.3 H (5.3-12.2) % Eos % (Auto) 1.1 (0.8-7.0) Baso % (Auto) 0.5 (0.1-1.2) % Neut # (Auto) 8.09 H (1.78-5.38) K/mm3 Lymph # (Auto) 1.50 (1.32-3.57) K/mm3 [place] # (Auto) 2.21 H (0.30-0.82) K/mm3 Eos # (Auto) 0.14 (0.04-0.54) K/mm3 Baso # (Auto) 0.06 (0.01-0.08) K/mm3 Manual Slide Review Abnormal smear Sodium 133 L (136-145) mEq/L Potassium 3.9 (3.5-5.1) mEq/L Chloride 96 L (98-107) mEq/L Carbon Dioxide 25 (21-32) mEq/L Anion Gap 15.9 H (5-15) BUN 11 (7-18) mg/dL Creatinine 0.7 (0.7-1.3) mg/dL Est Cr Clr Drug Dosing 143.86 mL/min Estimated GFR (MDRD) > 60 (>60) mL/min BUN/Creatinine Ratio 15.7 (14-18) Glucose 100 (74-106) mg/dL Calcium 9.1 (8.5-10.1) mg/dL Magnesium 2.3 (1.8-2.4) mg/dl C-Reactive Protein 24.9 H* (<1.0) mg/dL Luís Results Last 24 Hours: Microbiology 09/03/17 17:28 Aerobic Blood Culture - Preliminary Blood - Venous - Lab Draw Gram Positive Cocci In Clustrs Anaerobic Blood Culture - Preliminary NO GROWTH AFTER 2 DAYS 09/03/17 17:20 Aerobic Blood Culture - Preliminary Blood - Venous Staphylococcus Aureus Anaerobic Blood Culture - Preliminary NO GROWTH AFTER 2 DAYS Med Orders - Current: Current Medications Acetaminophen (Tylenol) 650 mg PO Q4H PRN PRN Reason: Pain (Mild 1-3)/fever Last Admin: 09/03/17 04:24 Dose: 650 mg Acetaminophen (Tylenol) 650 mg PO TID [facility] Last Admin: 09/06/17 08:31 Dose: 650 mg Hydrocodone Bitart/Acetaminophen (Colbert 325-5 Mg) 1 tab PO Q4H PRN PRN Reason: Pain (moderate 4-6) Last Admin: 09/04/17 16:19 Dose: 1 tab Albuterol/Ipratropium (Duoneb 3.0-0.5 Mg/3 Ml) 3 ml NEB Q4H PRN PRN Reason: Shortness Of Breath/wheezing Calcium Carbonate (Calcium Carbonate/Vitamin D 1500 Mg-200 Unit) 1 tab PO BID [facility] Last Admin: 09/06/17 08:25 Dose: 1 tab Cholecalciferol (Vitamin D3) 1,000 units PO BEDTIME [facility] Last Admin: 09/05/17 21:24 Dose: 1,000 units Citalopram Hydrobromide (Celexa) 30 mg PO DAILY [facility] Last Admin: 09/06/17 08:30 Dose: 30 mg Clonidine HCl (Catapres) 0.1 mg PO QID [facility] Last Admin: 09/06/17 13:25 Dose: 0.1 mg Cyclobenzaprine HCl (Flexeril) 10 mg PO BEDTIME [facility] Last Admin: 09/05/17 21:24 Dose: 10 mg Diphenhydramine HCl (Benadryl) 25 mg IVPUSH Q4H PRN PRN Reason: Itching Last Admin: 09/04/17 13:22 Dose: 25 mg Divalproex Sodium (Depakote) 500 mg PO BID [facility] Last Admin: 09/06/17 08:31 Dose: 500 mg Docusate Sodium (Colace) 100 mg PO BID [facility] Last Admin: 09/06/17 08:25 Dose: 100 mg Ferrous Sulfate (Ferrous Sulfate) 325 mg PO BID [facility] Last Admin: 09/06/17 08:29 Dose: 325 mg Furosemide (Lasix) 20 mg PO DAILY [facility] Last Admin: 09/06/17 08:29 Dose: 20 mg Hydralazine HCl (Apresoline) 20 mg IVPUSH Q6H PRN PRN Reason: Hypertension Piperacillin Sod/Tazobactam (Sod 4.5 gm/ Dextrose/Water) 100 mls @ 25 mls/hr IV Q8H [facility] Last Admin: 09/06/17 08:23 Dose: 25 mls/hr Ibuprofen (Motrin) 600 mg PO Q6H PRN PRN Reason: fever Last Admin: 09/03/17 12:09 Dose: 600 mg Imipramine HCl (Imipramine Hcl) 75 mg PO BEDTIME [facility] Last Admin: 09/05/17 21:23 Dose: 75 mg Levetiracetam (Keppra) 1,500 mg PO BID [facility] Last Admin: 09/06/17 08:33 Dose: 1,500 mg Lisinopril (Prinivil) 20 mg PO DAILY [facility] Last Admin: 09/06/17 08:30 Dose: 20 mg Lorazepam (Ativan) 2 mg IVPUSH Q4H PRN PRN Reason: Seizures Lorazepam (Ativan) 0.5 mg PO QID [facility] Last Admin: 09/06/17 13:28 Dose: 0.5 mg Metoprolol Tartrate (Lopressor) 5 mg IVPUSH Q4H PRN PRN Reason: Tachycardia Metoprolol Tartrate (Lopressor) 25 mg PO Q12HR [facility] Last Admin: 09/06/17 08:33 Dose: 25 mg Multivitamins (Thera) 1 each PO BEDTIME [facility] Last Admin: 09/05/17 21:24 Dose: 1 each Mupirocin (Bactroban Oint) 0 gm TOP BID [facility] Last Admin: 09/06/17 08:41 Dose: 1 applic Ondansetron HCl (Zofran) 4 mg IVPUSH Q4H PRN PRN Reason: Nausea Last Admin: 09/04/17 18:30 Dose: 4 mg Oxcarbazepine (Trileptal) 900 mg PO BID [facility] Last Admin: 09/06/17 08:33 Dose: 900 mg Pantoprazole Sodium (Protonix) 40 mg PO DAILY@0700 [facility] Last Admin: 09/06/17 06:07 Dose: 40 mg Clinda-Benzoyl Perox (1-5% Topical) 0 each TOP BEDTIME [facility] Last Admin: 09/05/17 21:33 Dose: Not Given Sodium Chloride 1 Gm (Tab) 0 each PO TID [facility] Last Admin: 09/06/17 08:49 Dose: 3 each Quetiapine Fumarate (Seroquel) 100 mg PO TID@0700,1200,1600 [facility] Last Admin: 09/06/17 13:25 Dose: 100 mg Quetiapine Fumarate (Seroquel) 400 mg PO BEDTIME [facility] Last Admin: 09/05/17 21:25 Dose: 400 mg Saccharomyces Boulardii (Florastor) 250 mg PO BID [facility] Last Admin: 09/06/17 08:24 Dose: 250 mg Sodium Chloride (Saline Flush) 10 ml FLUSH ASDIRECTED PRN PRN Reason: Keep Vein Open Last Admin: 09/01/17 12:22 Dose: 10 ml Sodium Chloride ([place] Nasal [place]) 0 ml NASBOTH TID PRN PRN Reason: Congestion Trimethoprim/Sulfamethoxazole (Septra Ds) 2 tab PO Q8HR [place] Vitamin E (Vitamin E) 400 units PO BID [facility] Last Admin: 09/06/17 08:28 Dose: 400 units Discontinued Medications Acetaminophen (Tylenol) 975 mg PO NOW ONE Stop: 09/01/17 12:41 Last Admin: 09/01/17 12:53 Dose: 975 mg Diatrizoate Meglum/Diatrizoate Sod (Gastrografin 37%) 90 ml PO ONETIME ONE Stop: 09/01/17 14:53 Last Admin: 09/01/17 15:37 Dose: 90 ml Divalproex Sodium (Depakote) 500 mg PO BID U[place] Hydralazine HCl (Apresoline) 10 mg IVPUSH Q6H PRN PRN Reason: Hypertension Last Admin: 09/05/17 20:52 Dose: 10 mg Sodium Chloride (Normal Saline) 1,000 mls @ 500 mls/hr IV ONETIME ONE Stop: 09/01/17 14:11 Last Admin: 09/01/17 12:20 Dose: 500 mls/hr Sodium Chloride (Normal Saline) 1,000 mls @ 500 mls/hr IV ONETIME ONE Stop: 09/01/17 16:27 Last Admin: 09/01/17 14:29 Dose: 500 mls/hr Ceftriaxone Sodium 2 gm/ (Sodium Chloride) 100 mls @ 200 mls/hr IV ONETIME ONE Stop: 09/01/17 16:26 Last Admin: 09/01/17 16:27 Dose: Not Given Vancomycin HCl 1 gm/ Sodium (Chloride) 250 mls @ 250 mls/hr IV ONETIME ONE Stop: 09/01/17 16:56 Last Admin: 09/01/17 17:11 Dose: 250 mls/hr Ceftriaxone Sodium 2 gm/ (Sodium Chloride) 100 mls @ 200 mls/hr IV ONETIME STA Stop: 09/01/17 16:39 Last Admin: 09/01/17 16:26 Dose: 200 mls/hr Sodium Chloride (Normal Saline) 1,000 mls @ 150 mls/hr IV ASDIRECTED [facility] Last Admin: 09/01/17 17:19 Dose: 150 mls/hr Ceftriaxone Sodium 2 gm/ (Sodium Chloride) 100 mls @ 200 mls/hr IV Q24H [facility] Sodium Chloride (Normal Saline) 1,000 mls @ 100 mls/hr IV ASDIRECTED URBAN Stop: 09/03/17 04:44 Last Admin: 09/02/17 01:52 Dose: 100 mls/hr Vancomycin HCl 1 gm/ Sodium (Chloride) 250 mls @ 250 mls/hr IV Q12H [facility] Last Admin: 09/02/17 04:23 Dose: 250 mls/hr Ceftriaxone Sodium 2 gm/ (Dextrose/Water) 100 mls @ 200 mls/hr IV Q24H [facility] Last Admin: 09/02/17 16:08 Dose: 200 mls/hr Vancomycin HCl 1 gm/ Sodium (Chloride) 250 mls @ 250 mls/hr IV Q8H [facility] Last Admin: 09/03/17 18:25 Dose: Not Given Piperacillin Sod/Tazobactam (Sod 4.5 gm/ Dextrose/Water) 100 mls @ 200 mls/hr IV ONETIME ONE Stop: 09/03/17 09:29 Last Admin: 09/03/17 09:13 Dose: 200 mls/hr Vancomycin HCl 1 gm/Vancomycin HCl 500 mg/ Sodium Chloride 500 mls @ 500 mls/ hr IV Q8H [facility] Last Admin: 09/03/17 18:27 Dose: Not Given Vancomycin HCl 1 gm/Vancomycin HCl 500 mg/ Sodium Chloride 500 mls @ 333.333 mls/hr IV Q8H [facility] Last Admin: 09/04/17 05:41 Dose: 333.333 mls/hr Magnesium Sulfate (Pharmacy To Dose - Magnesium Replacement) 0 dose .XX ASDIRECTED PRN PRN Reason: RX TO WATCH MAG LEVELS Sodium Chloride 3gm (Tablet) 3 gm PO TID [facility] Omeprazole (Omeprazole) 40 mg PO DAILY [facility] Ondansetron HCl (Zofran) 4 mg IVPUSH ONETIME ONE Stop: 09/01/17 12:13 Last Admin: 09/01/17 12:21 Dose: 4 mg Oral Electrolytes (Thermotabs) 1 each PO ONETIME ONE Stop: 09/03/17 21:01 Last Admin: 09/03/17 20:18 Dose: 1 each Oral Electrolytes (Thermotabs) 1 each PO NOW STA Stop: 09/04/17 09:30 Last Admin: 09/04/17 10:05 Dose: 1 each Quetiapine [Seroquel (Xr] 400 Mg) 0 each PO BEDTIME [facility] Last Admin: 09/03/17 22:04 Dose: Not Given Potassium Chloride (Pharmacy To Dose - Potassium Replacement) 0 dose .XX ASDIRECTED PRN PRN Reason: RX TO WATCH K LEVELS Potassium Chloride (Klor-Con M20) 40 meq PO Q4H [place] Stop: 09/04/17 11:31 Last Admin: 09/04/17 12:34 Dose: 40 meq Temazepam (Restoril) 15 mg PO ONETIME ONE Stop: 09/04/17 01:00 Last Admin: 09/04/17 01:22 Dose: 15 mg Vancomycin HCl (Pharmacy To Dose - Vancomycin) 0 dose .XX ASDIRECTED PRN PRN Reason: RX TO DOSE VANCOMYCIN Vancomycin HCl (Vancomycin) Confirm Administered Dose 500 mg .ROUTE .STK-MED ONE Stop: 09/03/17 21:26 Last Admin: 09/03/17 21:50 Dose: 500 mg Vancomycin HCl (Vancomycin) Confirm Administered Dose 1 gm .ROUTE .STK-MED ONE Stop: 09/03/17 21:26 Last Admin: 09/03/17 21:50 Dose: 1 gm - Exam Quality Assessment: DVT Prophylaxis General: Alert, Oriented, Cooperative HEENT: Pupils Equal, Pupils Reactive, EOMI Neck: Trachea Midline, No JVD Lungs: Normal Respiratory Effort Cardiovascular: Regular Rate, Regular Rhythm GI/Abdominal Exam: Normal Bowel Sounds, Soft, Non-Tender, No Organomegaly, No Distention (Male) Exam: Deferred Back Exam: Normal Inspection Extremities: Normal Inspection Skin: Warm Neurological: No New Focal Deficit Psy/Mental Status: Alert - Problem List Review Problem List Initiated/Reviewed/Updated: Yes - My Orders Last 24 Hours: My Active Orders 09/06/17 13:43 hydrALAZINE [Apresoline] 20 mg IVPUSH Q6H PRN 09/06/17 14:00 Sulfamethoxazole/Trimethoprim [Septra DS] 2 tab PO Q8HR - Plan Plan:: I/P: Acute: SIRS--- Bacteremia with gram + cocci in clusters thus far on BC, awaiting further C&S ( sensitive to Bactrim DS and Oxacillin). -WBC 14.04-->13.2-->10K -CRP 47.1-->slowly trending down, is 25 today -Lactic acid 1.2 -Fever of 102.6 on admit; N&V--? resolved thus far in hospital stay -UA, CXR, abdomen X-ray, AB/pelvis CT, influenza, strep - all negative -Blood cultures obtained; staph aureus, not MRSA. Repeat obtained 48 hours later with 1/ still + for G+C. 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 -Given 2L of fluid in ED -Fluids as ordered -IV vancomycin and Rocephin started in ED - BC results returned as above, not MRSA- Vancomycin DC'd, continue Zosyn with positive but slow response. -Add Florastor -Antiemeteics -Viral panel negative, -Strep pneumonia negative, -Mycoplasma pneumonia - negative, -Strep screen - negative Mild Hypokalemia---normal/resolved today- cont to follow -Replete and monitor with daily labs -Mag WNL at 1.9 Mild hyponatremia--134---normal/resolved today--cont to follow -Monitor and follow am labs -Thermotab one time dose this morning. Resolved Acute Kidney injury--resolved -Unsure of baseline -BUN 27, Creatinine 1.8, eGFR 43---creat 0.7 and stable -2L fluids given in ED -Fluids as ordered -Avoid nephrotoxic drugs -Monitor AM labs Chronic: GERD - home meds seizures - home meds, no sz activity thus far anxiety - home meds autism and mild mental retardation vitamin D deficiency - home meds acne- home meds scoliosis P[place]---He is on a fluid restricted diet as he consumes excessive amounts of liquids which deplete his sodium. Plan: Admit to medical floor on telemetry CM for discharge planning---plans DC back to [facility] when ready--repeat BC + 1 bottles for G+C, will need repeat again in 48 hours. No DC until BC clear. Cont current POC with IV abx and close monitoring. PT for strengthening Home medications as indicated Routine AM labs GI Prophylaxis - home PPI DVT/PE prophylaxis: SARAH olivier Code status: Full Code; PCP: Dr. Valdovinos at [facility] here in [place].
[2017-09-06] MEDS: Sulfamethoxazole/Trimethoprim 800-160 MG Tab PO SCH ×2 (15:32→21:36)
[2017-09-06] MEDS: BENZOYL PEROXIDE TOP SCH (20:45)
[2017-09-06] MEDS: CLINDAMYCIN TOP SCH (20:45)
[2017-09-06] MEDS: Multivitamins,Therapeutic Tab PO SCH (20:46)
[2017-09-06] MEDS: Cyclobenzaprine 10 MG Tab PO SCH (20:46)
[2017-09-06] MEDS: Cholecalciferol (Vitamin D3) 1,000 Unit Tab PO SCH (20:46)
[2017-09-07] MEDS: Piperacillin/Tazobactam 4.5 GM in Dextrose 5% in Water 100 ML IV SCH ×4 (00:44→09:24)
[2017-09-07] MEDS: QUEtiapine 100 MG Tab PO SCH ×4 (06:21→20:14)
[2017-09-07] MEDS: Pantoprazole 40 MG Tab.CR PO SCH (06:21)
[2017-09-07] MEDS: Sulfamethoxazole/Trimethoprim 800-160 MG Tab PO SCH ×4 (06:21→21:48)
[2017-09-07] MEDS: Ferrous Sulfate 325 MG Tab PO SCH ×2 (09:09→20:09)
[2017-09-07] MEDS: levETIRAcetam 500 MG Tab PO SCH ×2 (09:09→20:09)
[2017-09-07] MEDS: Saccharomyces Boulardii (Probiotic) 250 MG Cap PO SCH ×2 (09:10→20:13)
[2017-09-07] MEDS: Citalopram 20 MG Tab PO SCH (09:10)
[2017-09-07] MEDS: Furosemide 20 MG Tab PO SCH (09:10)
[2017-09-07] MEDS: Divalproex Sodium Delayed-Release 500 MG Tab.CR PO SCH ×2 (09:11→20:10)
[2017-09-07] MEDS: cloNIDine 0.1 MG Tab PO SCH ×4 (09:11→20:12)
[2017-09-07] MEDS: Calcium Carbonate/Vitamin D3 1500 MG-200 Units Tab PO SCH ×2 (09:11→20:13)
[2017-09-07] MEDS: Mupirocin Oint 22 GM Tube TOP SCH ×2 (09:17→20:27)
[2017-09-07] MEDS: Acetaminophen 325 MG Tab PO SCH ×3 (09:18→20:13)
[2017-09-07] MEDS: Vitamin E (dl-alpha-tocopherol acetate) 400 Unit Cap PO SCH ×2 (09:18→20:13)
[2017-09-07] MEDS: Docusate Sodium 100 MG Cap PO SCH ×2 (09:19→20:12)
[2017-09-07] MEDS: Metoprolol Tartrate 25 MG Tab PO SCH ×2 (09:19→20:12)
[2017-09-07] MEDS: Sodium Chloride 1 GM Tab PO SCH ×3 (09:20→20:24)
[2017-09-07] MEDS: OXcarbazepine 300 MG Tab PO SCH ×2 (09:20→20:23)
[2017-09-07] MEDS: LORazepam 0.5 MG Tab PO SCH ×4 (09:22→20:09)
--- NOTE | 2017-09-07 15:04 | PCM.PN ---
- General Info Date of Service: 09/07/17 Functional Status: Reports: Tolerating Diet, Ambulating - Review of Systems General: Reports: No Symptoms HEENT: Reports: No Symptoms Pulmonary: Reports: No Symptoms Cardiovascular: Reports: No Symptoms Gastrointestinal: Reports: No Symptoms Genitourinary: Reports: No Symptoms Musculoskeletal: Reports: No Symptoms Skin: Reports: No Symptoms Neurological: Reports: No Symptoms Psychiatric: Reports: No Symptoms - Patient Data Vitals - Most Recent: Last Vital Signs Temp 36.7 C 09/07/17 11:19 Pulse 104 H 09/07/17 11:19 Resp 18 09/07/17 11:19 BP 132/83 09/07/17 12:20 Pulse Ox 95 09/07/17 11:19 Weight - Most Recent: 70.76 kg I&O - Last 24 Hours: Intake & Output 09/07/17 09/07/17 09/07/17 06:59 14:59 22:59 Intake Total 600 240 Output Total 400 Balance 200 240 Lab Results Last 24 Hours: Laboratory Results - last 24 hr 09/07/17 09/07/17 Range/Units 07:01 07:01 WBC 12.00 H (4.23-9.07) K/mm3 RBC 4.15 L (4.63-6.08) M/mm3 Hgb 13.1 L (13.7-17.5) gm/L Hct 39.3 L (40.1-51.0) % MCV 94.7 H (79.0-92.2) fl MCH 31.6 (25.7-32.2) pg MCHC 33.3 (32.2-35.5) g/dl RDW Std Deviation 42.6 (35.1-43.9) fL Plt Count 313 (163-337) K/mm3 MPV 9.6 (9.4-12.3) fl Neut % (Auto) 54.8 (34.0-67.9) % Lymph % (Auto) 10.8 L (21.8-53.1) % [place] % (Auto) 18.5 H (5.3-12.2) % Eos % (Auto) 1.3 (0.8-7.0) Baso % (Auto) 0.8 (0.1-1.2) % Neut # (Auto) 6.59 H (1.78-5.38) K/mm3 Lymph # (Auto) 1.29 L (1.32-3.57) K/mm3 [place] # (Auto) 2.22 H (0.30-0.82) K/mm3 Eos # (Auto) 0.15 (0.04-0.54) K/mm3 Baso # (Auto) 0.10 H (0.01-0.08) K/mm3 Manual Slide Review Abnormal smear Sodium 133 L (136-145) mEq/L Potassium 4.2 (3.5-5.1) mEq/L Chloride 99 (98-107) mEq/L Carbon Dioxide 23 (21-32) mEq/L Anion Gap 15.2 H (5-15) BUN 14 (7-18) mg/dL Creatinine 0.8 (0.7-1.3) mg/dL Est Cr Clr Drug Dosing 125.88 mL/min Estimated GFR (MDRD) > 60 (>60) mL/min BUN/Creatinine Ratio 17.5 (14-18) Glucose 103 (74-106) mg/dL Calcium 9.2 (8.5-10.1) mg/dL Magnesium 2.2 (1.8-2.4) mg/dl C-Reactive Protein 16.1 H* (<1.0) mg/dL Luís Results Last 24 Hours: Microbiology 09/06/17 14:24 Aerobic Blood Culture - Preliminary Blood - Venous NO GROWTH AFTER 1 DAY Anaerobic Blood Culture - Preliminary NO GROWTH AFTER 1 DAY 09/06/17 14:15 Aerobic Blood Culture - Preliminary Blood - Venous - Lab Draw NO GROWTH AFTER 1 DAY Anaerobic Blood Culture - Preliminary NO GROWTH AFTER 1 DAY 09/03/17 17:20 Aerobic Blood Culture - Final Blood - Venous Staphylococcus Aureus Anaerobic Blood Culture - Preliminary NO GROWTH AFTER 3 DAYS 09/03/17 17:28 Aerobic Blood Culture - Preliminary Blood - Venous - Lab Draw Gram Positive Cocci In Clustrs Anaerobic Blood Culture - Preliminary NO GROWTH AFTER 3 DAYS Med Orders - Current: Current Medications Acetaminophen (Tylenol) 650 mg PO Q4H PRN PRN Reason: Pain (Mild 1-3)/fever Last Admin: 09/03/17 04:24 Dose: 650 mg Acetaminophen (Tylenol) 650 mg PO TID URBAN Last Admin: 09/07/17 09:18 Dose: 650 mg Hydrocodone Bitart/Acetaminophen (Bow 325-5 Mg) 1 tab PO Q4H PRN PRN Reason: Pain (moderate 4-6) Last Admin: 09/04/17 16:19 Dose: 1 tab Albuterol/Ipratropium (Duoneb 3.0-0.5 Mg/3 Ml) 3 ml NEB Q4H PRN PRN Reason: Shortness Of Breath/wheezing Calcium Carbonate (Calcium Carbonate/Vitamin D 1500 Mg-200 Unit) 1 tab PO BID [facility] Last Admin: 09/07/17 09:11 Dose: 1 tab Cholecalciferol (Vitamin D3) 1,000 units PO BEDTIME [facility] Last Admin: 09/06/17 20:46 Dose: 1,000 units Citalopram Hydrobromide (Celexa) 30 mg PO DAILY [facility] Last Admin: 09/07/17 09:10 Dose: 30 mg Clonidine HCl (Catapres) 0.1 mg PO QID [facility] Last Admin: 09/07/17 12:20 Dose: 0.1 mg Cyclobenzaprine HCl (Flexeril) 10 mg PO BEDTIME [facility] Last Admin: 09/06/17 20:46 Dose: 10 mg Diphenhydramine HCl (Benadryl) 25 mg IVPUSH Q4H PRN PRN Reason: Itching Last Admin: 09/04/17 13:22 Dose: 25 mg Divalproex Sodium (Depakote) 500 mg PO BID [facility] Last Admin: 09/07/17 09:11 Dose: 500 mg Docusate Sodium (Colace) 100 mg PO BID [facility] Last Admin: 09/07/17 09:19 Dose: 100 mg Ferrous Sulfate (Ferrous Sulfate) 325 mg PO BID [facility] Last Admin: 09/07/17 09:09 Dose: 325 mg Furosemide (Lasix) 20 mg PO DAILY [facility] Last Admin: 09/07/17 09:10 Dose: 20 mg Hydralazine HCl (Apresoline) 20 mg IVPUSH Q6H PRN PRN Reason: Hypertension Ibuprofen (Motrin) 600 mg PO Q6H PRN PRN Reason: fever Last Admin: 09/03/17 12:09 Dose: 600 mg Imipramine HCl (Imipramine Hcl) 75 mg PO BEDTIME [facility] Last Admin: 09/06/17 20:48 Dose: 75 mg Levetiracetam (Keppra) 1,500 mg PO BID [facility] Last Admin: 09/07/17 09:09 Dose: 1,500 mg Lisinopril (Prinivil) 20 mg PO DAILY [facility] Last Admin: 09/06/17 08:30 Dose: 20 mg Lorazepam (Ativan) 2 mg IVPUSH Q4H PRN PRN Reason: Seizures Lorazepam (Ativan) 0.5 mg PO QID [facility] Last Admin: 09/07/17 12:19 Dose: 0.5 mg Metoprolol Tartrate (Lopressor) 5 mg IVPUSH Q4H PRN PRN Reason: Tachycardia Metoprolol Tartrate (Lopressor) 25 mg PO Q12HR [facility] Last Admin: 09/07/17 09:19 Dose: 25 mg Multivitamins (Thera) 1 each PO BEDTIME [facility] Last Admin: 09/06/17 20:46 Dose: 1 each Mupirocin (Bactroban Oint) 0 gm TOP BID [facility] Last Admin: 09/07/17 09:17 Dose: 1 applic Ondansetron HCl (Zofran) 4 mg IVPUSH Q4H PRN PRN Reason: Nausea Last Admin: 09/04/17 18:30 Dose: 4 mg Oxcarbazepine (Trileptal) 900 mg PO BID [facility] Last Admin: 09/07/17 09:20 Dose: 900 mg Pantoprazole Sodium (Protonix) 40 mg PO DAILY@0700 [facility] Last Admin: 09/07/17 06:21 Dose: 40 mg Clinda-Benzoyl Perox (1-5% Topical) 0 each TOP BEDTIME [facility] Last Admin: 09/06/17 20:45 Dose: Not Given Sodium Chloride 1 Gm (Tab) 0 each PO TID [facility] Last Admin: 09/07/17 09:20 Dose: 3 each Quetiapine Fumarate (Seroquel) 100 mg PO TID@0700,1200,1600 [facility] Last Admin: 09/07/17 12:20 Dose: 100 mg Quetiapine Fumarate (Seroquel) 400 mg PO BEDTIME [facility] Last Admin: 09/06/17 20:54 Dose: 400 mg Saccharomyces Boulardii (Florastor) 250 mg PO BID [facility] Last Admin: 09/07/17 09:10 Dose: 250 mg Sodium Chloride (Saline Flush) 10 ml FLUSH ASDIRECTED PRN PRN Reason: Keep Vein Open Last Admin: 09/01/17 12:22 Dose: 10 ml Sodium Chloride ([place] Nasal Cranberry) 0 ml NASBOTH TID PRN PRN Reason: Congestion Vitamin E (Vitamin E) 400 units PO BID URBAN Last Admin: 09/07/17 09:18 Dose: 400 units Discontinued Medications Acetaminophen (Tylenol) 975 mg PO NOW ONE Stop: 09/01/17 12:41 Last Admin: 09/01/17 12:53 Dose: 975 mg Diatrizoate Meglum/Diatrizoate Sod (Gastrografin 37%) 90 ml PO ONETIME ONE Stop: 09/01/17 14:53 Last Admin: 09/01/17 15:37 Dose: 90 ml Divalproex Sodium (Depakote) 500 mg PO BID [facility] Hydralazine HCl (Apresoline) 10 mg IVPUSH Q6H PRN PRN Reason: Hypertension Last Admin: 09/05/17 20:52 Dose: 10 mg Sodium Chloride (Normal Saline) 1,000 mls @ 500 mls/hr IV ONETIME ONE Stop: 09/01/17 14:11 Last Admin: 09/01/17 12:20 Dose: 500 mls/hr Sodium Chloride (Normal Saline) 1,000 mls @ 500 mls/hr IV ONETIME ONE Stop: 09/01/17 16:27 Last Admin: 09/01/17 14:29 Dose: 500 mls/hr Ceftriaxone Sodium 2 gm/ (Sodium Chloride) 100 mls @ 200 mls/hr IV ONETIME ONE Stop: 09/01/17 16:26 Last Admin: 09/01/17 16:27 Dose: Not Given Vancomycin HCl 1 gm/ Sodium (Chloride) 250 mls @ 250 mls/hr IV ONETIME ONE Stop: 09/01/17 16:56 Last Admin: 09/01/17 17:11 Dose: 250 mls/hr Ceftriaxone Sodium 2 gm/ (Sodium Chloride) 100 mls @ 200 mls/hr IV ONETIME STA Stop: 09/01/17 16:39 Last Admin: 09/01/17 16:26 Dose: 200 mls/hr Sodium Chloride (Normal Saline) 1,000 mls @ 150 mls/hr IV ASDIRECTED [facility] Last Admin: 09/01/17 17:19 Dose: 150 mls/hr Ceftriaxone Sodium 2 gm/ (Sodium Chloride) 100 mls @ 200 mls/hr IV Q24H [facility] Sodium Chloride (Normal Saline) 1,000 mls @ 100 mls/hr IV ASDIRECTED [facility] Stop: 09/03/17 04:44 Last Admin: 09/02/17 01:52 Dose: 100 mls/hr Vancomycin HCl 1 gm/ Sodium (Chloride) 250 mls @ 250 mls/hr IV Q12H [facility] Last Admin: 09/02/17 04:23 Dose: 250 mls/hr Ceftriaxone Sodium 2 gm/ (Dextrose/Water) 100 mls @ 200 mls/hr IV Q24H [facility] Last Admin: 09/02/17 16:08 Dose: 200 mls/hr Vancomycin HCl 1 gm/ Sodium (Chloride) 250 mls @ 250 mls/hr IV Q8H [facility] Last Admin: 09/03/17 18:25 Dose: Not Given Piperacillin Sod/Tazobactam (Sod 4.5 gm/ Dextrose/Water) 100 mls @ 200 mls/hr IV ONETIME ONE Stop: 09/03/17 09:29 Last Admin: 09/03/17 09:13 Dose: 200 mls/hr Piperacillin Sod/Tazobactam (Sod 4.5 gm/ Dextrose/Water) 100 mls @ 25 mls/hr IV Q8H [facility] Last Admin: 09/07/17 09:24 Dose: 25 mls/hr Vancomycin HCl 1 gm/Vancomycin HCl 500 mg/ Sodium Chloride 500 mls @ 500 mls/ hr IV Q8H [facility] Last Admin: 09/03/17 18:27 Dose: Not Given Vancomycin HCl 1 gm/Vancomycin HCl 500 mg/ Sodium Chloride 500 mls @ 333.333 mls/hr IV Q8H [facility] Last Admin: 09/04/17 05:41 Dose: 333.333 mls/hr Magnesium Sulfate (Pharmacy To Dose - Magnesium Replacement) 0 dose .XX ASDIRECTED PRN PRN Reason: RX TO WATCH MAG LEVELS Sodium Chloride 3gm (Tablet) 3 gm PO TID [facility] Omeprazole (Omeprazole) 40 mg PO DAILY [facility] Ondansetron HCl (Zofran) 4 mg IVPUSH ONETIME ONE Stop: 09/01/17 12:13 Last Admin: 09/01/17 12:21 Dose: 4 mg Oral Electrolytes (Thermotabs) 1 each PO ONETIME ONE Stop: 09/03/17 21:01 Last Admin: 09/03/17 20:18 Dose: 1 each Oral Electrolytes (Thermotabs) 1 each PO NOW STA Stop: 09/04/17 09:30 Last Admin: 09/04/17 10:05 Dose: 1 each Quetiapine [Seroquel (Xr] 400 Mg) 0 each PO BEDTIME [facility] Last Admin: 09/03/17 22:04 Dose: Not Given Potassium Chloride (Pharmacy To Dose - Potassium Replacement) 0 dose .XX ASDIRECTED PRN PRN Reason: RX TO WATCH K LEVELS Potassium Chloride (Klor-Con M20) 40 meq PO Q4H URBAN Stop: 09/04/17 11:31 Last Admin: 09/04/17 12:34 Dose: 40 meq Temazepam (Restoril) 15 mg PO ONETIME ONE Stop: 09/04/17 01:00 Last Admin: 09/04/17 01:22 Dose: 15 mg Trimethoprim/Sulfamethoxazole (Septra Ds) 2 tab PO Q8HR [facility] Last Admin: 09/07/17 12:19 Dose: 2 tab Vancomycin HCl (Pharmacy To Dose - Vancomycin) 0 dose .XX ASDIRECTED PRN PRN Reason: RX TO DOSE VANCOMYCIN Vancomycin HCl (Vancomycin) Confirm Administered Dose 500 mg .ROUTE .STK-MED ONE Stop: 09/03/17 21:26 Last Admin: 09/03/17 21:50 Dose: 500 mg Vancomycin HCl (Vancomycin) Confirm Administered Dose 1 gm .ROUTE .STK-MED ONE Stop: 09/03/17 21:26 Last Admin: 09/03/17 21:50 Dose: 1 gm - Exam Quality Assessment: DVT Prophylaxis General: Alert, Oriented, Cooperative, No Acute Distress HEENT: Pupils Equal, Pupils Reactive, EOMI Neck: Trachea Midline, No JVD Lungs: Normal Respiratory Effort Cardiovascular: Regular Rate, Regular Rhythm GI/Abdominal Exam: Normal Bowel Sounds, Soft, Non-Tender, No Organomegaly, No Distention (Male) Exam: Deferred Back Exam: Normal Inspection Extremities: Normal Inspection Skin: Warm Neurological: No New Focal Deficit Psy/Mental Status: Alert - Problem List Review Problem List Initiated/Reviewed/Updated: Yes - My Orders Last 24 Hours: My Active Orders 09/07/17 15:00 Ampicillin 2 gm Sodium Chloride 0.9% [Normal Saline] 100 ml IV Q6H - Plan Plan:: I/P: Acute: SIRS--- Bacteremia with gram + cocci in clusters thus far on BC, awaiting further C&S ( sensitive to Bactrim DS and Oxacillin; Ampicillin). -WBC 14.04-->13.2-->10K -CRP 47.1-->slowly trending down, is 25 today -Lactic acid 1.2 -Fever of 102.6 on admit; N&V--? resolved thus far in hospital stay -UA, CXR, abdomen X-ray, AB/pelvis CT, influenza, strep - all negative -Blood cultures obtained; staph aureus, not MRSA. Repeat obtained 48 hours later with 1/ still + for G+C. Will repeat again at 48 hr christiana -Non Destructive Tester reports type of gastroenteritis going around [facility] homes recently-- per notes, all house mates and staff at his residence are now ill. -Given 2L of fluid in ED -Fluids as ordered -IV vancomycin and Rocephin started in ED - BC results returned as above, not MRSA- Vancomycin DC'd, continue Zosyn with positive but slow response. -Add Florastor -Antiemeteics -Viral panel negative, -Strep pneumonia negative, -Mycoplasma pneumonia - negative, -Strep screen - negative Mild Hypokalemia---normal/resolved today- cont to follow -Replete and monitor with daily labs -Mag WNL at 1.9 Mild hyponatremia--134---normal/resolved today--cont to follow -Monitor and follow am labs -Thermotab one time dose this morning. Resolved Acute Kidney injury--resolved -Unsure of baseline -BUN 27, Creatinine 1.8, eGFR 43---creat 0.7 and stable -2L fluids given in ED -Fluids as ordered -Avoid nephrotoxic drugs -Monitor AM labs Chronic: GERD - home meds seizures - home meds, no sz activity thus far anxiety - home meds autism and mild mental retardation vitamin D deficiency - home meds acne- home meds scoliosis Pica---He is on a fluid restricted diet as he consumes excessive amounts of liquids which deplete his sodium. Plan: CM for discharge planning---plans DC back to [facility] when ready- Repeat BC+, several bottles with SA, will change to Ampicillin 2 Gm Q 6H. PT for strengthening Home medications as indicated Routine AM labs GI Prophylaxis - home PPI DVT/PE prophylaxis: SARAH olivier Code status: Full Code; PCP: Dr. Valdovinos at [facility] here in [place]. LOS>96 hours, sensitivity needed; changed ATB.
[2017-09-07] MEDS: Acetaminophen/HYDROcodone 325-5 MG Tab PO PRN (15:57)
[2017-09-07] MEDS ORDERED: Ampicillin 2 GM in Sodium Chloride 0.9% 100 ML IV SCH (16:00)
[2017-09-07] MEDS: Cyclobenzaprine 10 MG Tab PO SCH (20:12)
[2017-09-07] MEDS: Cholecalciferol (Vitamin D3) 1,000 Unit Tab PO SCH (20:13)
[2017-09-07] MEDS: Multivitamins,Therapeutic Tab PO SCH (20:13)
[2017-09-07] MEDS: BENZOYL PEROXIDE TOP SCH (20:18)
[2017-09-07] MEDS: CLINDAMYCIN TOP SCH (20:18)
[2017-09-08] MEDS: Ibuprofen 600 MG Tab PO PRN (05:04)
[2017-09-08] MEDS: QUEtiapine 100 MG Tab PO SCH ×4 (06:05→22:06)
[2017-09-08] MEDS: Sulfamethoxazole/Trimethoprim 800-160 MG Tab PO SCH ×3 (06:05→22:08)
[2017-09-08] MEDS: Pantoprazole 40 MG Tab.CR PO SCH (06:05)
[2017-09-08] MEDS: levETIRAcetam 500 MG Tab PO SCH ×2 (08:57→22:07)
[2017-09-08] MEDS: Saccharomyces Boulardii (Probiotic) 250 MG Cap PO SCH ×2 (08:57→22:03)
[2017-09-08] MEDS: Acetaminophen 325 MG Tab PO SCH ×3 (08:57→22:27)
[2017-09-08] MEDS: Calcium Carbonate/Vitamin D3 1500 MG-200 Units Tab PO SCH ×2 (08:58→22:04)
[2017-09-08] MEDS: Furosemide 20 MG Tab PO SCH (08:58)
[2017-09-08] MEDS: cloNIDine 0.1 MG Tab PO SCH ×4 (08:59→22:10)
[2017-09-08] MEDS: Divalproex Sodium Delayed-Release 500 MG Tab.CR PO SCH ×2 (08:59→22:04)
[2017-09-08] MEDS: Ferrous Sulfate 325 MG Tab PO SCH ×2 (08:59→22:10)
[2017-09-08] MEDS: Docusate Sodium 100 MG Cap PO SCH ×2 (08:59→22:01)
[2017-09-08] MEDS: Metoprolol Tartrate 25 MG Tab PO SCH ×2 (09:00→21:59)
[2017-09-08] MEDS: Vitamin E (dl-alpha-tocopherol acetate) 400 Unit Cap PO SCH ×2 (09:01→22:07)
[2017-09-08] MEDS: Mupirocin Oint 22 GM Tube TOP SCH ×2 (09:02→21:58)
[2017-09-08] MEDS: OXcarbazepine 300 MG Tab PO SCH ×2 (09:04→22:28)
[2017-09-08] MEDS: Sodium Chloride 1 GM Tab PO SCH ×3 (09:05→22:02)
[2017-09-08] MEDS: Citalopram 20 MG Tab PO SCH (09:09)
[2017-09-08] MEDS: LORazepam 0.5 MG Tab PO SCH ×4 (09:11→22:02)
[2017-09-08] MEDS: Ampicillin 2 GM in Sodium Chloride 0.9% 100 ML IV SCH ×3 (09:19→22:29)
--- NOTE | 2017-09-08 12:07 | PCM.PN ---
- General Info Date of Service: 09/08/17 Admission Dx/Problem (Free Text): Admission Diagnosis/Problem Admission Diagnosis/Problem Bacteremia Subjective Update: In to see Eros today. Nursing reports he has had very poor oral intake. He apparently did eat well last night when his parents brought him some [employer] food. His sodium is low so ordered a thermo tab and his gap is elevated. Will order 2 bags NS. He reportedly spiked a fever last night. His antibiotics have been adjusted. Will monitor. Functional Status: Reports: Tolerating Diet - Review of Systems General: Reports: No Symptoms HEENT: Reports: No Symptoms Pulmonary: Reports: No Symptoms Cardiovascular: Reports: No Symptoms Gastrointestinal: Reports: No Symptoms Genitourinary: Reports: No Symptoms Musculoskeletal: Reports: No Symptoms Skin: Reports: No Symptoms Neurological: Reports: No Symptoms Psychiatric: Reports: No Symptoms - Patient Data Vitals - Most Recent: Last Vital Signs Temp 97.9 F 09/08/17 11:45 Pulse 85 09/08/17 11:45 Resp 16 09/08/17 11:45 BP 101/68 09/08/17 11:45 Pulse Ox 95 09/08/17 11:45 Weight - Most Recent: 153 lb 9.6 oz I&O - Last 24 Hours: Intake & Output 09/07/17 09/08/17 09/08/17 22:59 06:59 14:59 Intake Total 1020 400 120 Output Total 1200 400 Balance -180 0 120 Lab Results Last 24 Hours: Laboratory Results - last 24 hr 09/08/17 09/08/17 Range/Units 04:55 04:55 WBC 14.01 H (4.23-9.07) K/mm3 RBC 4.25 L (4.63-6.08) M/mm3 Hgb 13.5 L (13.7-17.5) gm/L Hct 39.9 L (40.1-51.0) % MCV 93.9 H (79.0-92.2) fl MCH 31.8 (25.7-32.2) pg MCHC 33.8 (32.2-35.5) g/dl RDW Std Deviation 41.8 (35.1-43.9) fL Plt Count 364 H (163-337) K/mm3 MPV 9.7 (9.4-12.3) fl Neut % (Auto) 46.2 (34.0-67.9) % Lymph % (Auto) 11.0 L (21.8-53.1) % Sierra % (Auto) 20.4 H (5.3-12.2) % Eos % (Auto) 1.6 (0.8-7.0) Baso % (Auto) 2.5 H (0.1-1.2) % Neut # (Auto) 6.46 H (1.78-5.38) K/mm3 Lymph # (Auto) 1.54 (1.32-3.57) K/mm3 Sierra # (Auto) 2.86 H (0.30-0.82) K/mm3 Eos # (Auto) 0.23 (0.04-0.54) K/mm3 Baso # (Auto) 0.35 H (0.01-0.08) K/mm3 Manual Slide Review Abnormal smear Sodium 130 L (136-145) mEq/L Potassium 4.3 (3.5-5.1) mEq/L Chloride 96 L (98-107) mEq/L Carbon Dioxide 20 L (21-32) mEq/L Anion Gap 18.3 H (5-15) BUN 18 (7-18) mg/dL Creatinine 0.8 (0.7-1.3) mg/dL Est Cr Clr Drug Dosing 125.88 mL/min Estimated GFR (MDRD) > 60 (>60) mL/min BUN/Creatinine Ratio 22.5 H (14-18) Glucose 91 (74-106) mg/dL Calcium 9.3 (8.5-10.1) mg/dL Magnesium 2.4 (1.8-2.4) mg/dl C-Reactive Protein 13.8 H* (<1.0) mg/dL Luís Results Last 24 Hours: Microbiology 09/03/17 17:28 Aerobic Blood Culture - Final Blood - Venous - Lab Draw Staphylococcus Aureus Anaerobic Blood Culture - Preliminary NO GROWTH AFTER 4 DAYS 09/03/17 17:20 Aerobic Blood Culture - Final Blood - Venous Staphylococcus Aureus Anaerobic Blood Culture - Preliminary NO GROWTH AFTER 4 DAYS 09/06/17 14:24 Aerobic Blood Culture - Preliminary Blood - Venous NO GROWTH AFTER 1 DAY Anaerobic Blood Culture - Preliminary NO GROWTH AFTER 1 DAY 09/06/17 14:15 Aerobic Blood Culture - Preliminary Blood - Venous - Lab Draw NO GROWTH AFTER 1 DAY Anaerobic Blood Culture - Preliminary NO GROWTH AFTER 1 DAY Med Orders - Current: Current Medications Acetaminophen (Tylenol) 650 mg PO Q4H PRN PRN Reason: Pain (Mild 1-3)/fever Last Admin: 09/03/17 04:24 Dose: 650 mg Acetaminophen (Tylenol) 650 mg PO TID [facility] Last Admin: 09/08/17 08:57 Dose: 650 mg Hydrocodone Bitart/Acetaminophen ([place] 325-5 Mg) 1 tab PO Q4H PRN PRN Reason: Pain (moderate 4-6) Last Admin: 09/07/17 15:57 Dose: 1 tab Albuterol/Ipratropium (Duoneb 3.0-0.5 Mg/3 Ml) 3 ml NEB Q4H PRN PRN Reason: Shortness Of Breath/wheezing Calcium Carbonate (Calcium Carbonate/Vitamin D 1500 Mg-200 Unit) 1 tab PO BID [facility] Last Admin: 09/08/17 08:58 Dose: 1 tab Cholecalciferol (Vitamin D3) 1,000 units PO BEDTIME [facility] Last Admin: 09/07/17 20:13 Dose: 1,000 units Citalopram Hydrobromide (Celexa) 30 mg PO DAILY [facility] Last Admin: 09/08/17 09:09 Dose: 30 mg Clonidine HCl (Catapres) 0.1 mg PO QID [facility] Last Admin: 09/08/17 08:59 Dose: 0.1 mg Cyclobenzaprine HCl (Flexeril) 10 mg PO BEDTIME [facility] Last Admin: 09/07/17 20:12 Dose: 10 mg Diphenhydramine HCl (Benadryl) 25 mg IVPUSH Q4H PRN PRN Reason: Itching Last Admin: 09/04/17 13:22 Dose: 25 mg Divalproex Sodium (Depakote) 500 mg PO BID [facility] Last Admin: 09/08/17 08:59 Dose: 500 mg Docusate Sodium (Colace) 100 mg PO BID [facility] Last Admin: 09/08/17 08:59 Dose: 100 mg Ferrous Sulfate (Ferrous Sulfate) 325 mg PO BID [facility] Last Admin: 09/08/17 08:59 Dose: 325 mg Furosemide (Lasix) 20 mg PO DAILY [facility] Last Admin: 09/08/17 08:58 Dose: 20 mg Hydralazine HCl (Apresoline) 20 mg IVPUSH Q6H PRN PRN Reason: Hypertension Ampicillin Sodium 2 gm/ Sodium (Chloride) 100 mls @ 200 mls/hr IV Q6H [facility] Last Admin: 09/08/17 09:19 Dose: 200 mls/hr Ibuprofen (Motrin) 600 mg PO Q6H PRN PRN Reason: fever Last Admin: 09/08/17 05:04 Dose: 600 mg Imipramine HCl (Imipramine Hcl) 75 mg PO BEDTIME [facility] Last Admin: 09/07/17 20:09 Dose: 75 mg Levetiracetam (Keppra) 1,500 mg PO BID [facility] Last Admin: 09/08/17 08:57 Dose: 1,500 mg Lisinopril (Prinivil) 20 mg PO DAILY [facility] Last Admin: 09/06/17 08:30 Dose: 20 mg Lorazepam (Ativan) 2 mg IVPUSH Q4H PRN PRN Reason: Seizures Lorazepam (Ativan) 0.5 mg PO QID [facility] Last Admin: 09/08/17 09:11 Dose: 0.5 mg Metoprolol Tartrate (Lopressor) 5 mg IVPUSH Q4H PRN PRN Reason: Tachycardia Metoprolol Tartrate (Lopressor) 25 mg PO Q12HR [facility] Last Admin: 09/08/17 09:00 Dose: 25 mg Multivitamins (Thera) 1 each PO BEDTIME [facility] Last Admin: 09/07/17 20:13 Dose: 1 each Mupirocin (Bactroban Oint) 0 gm TOP BID [facility] Last Admin: 09/08/17 09:02 Dose: 1 applic Ondansetron HCl (Zofran) 4 mg IVPUSH Q4H PRN PRN Reason: Nausea Last Admin: 09/04/17 18:30 Dose: 4 mg Oxcarbazepine (Trileptal) 900 mg PO BID [facility] Last Admin: 09/08/17 09:04 Dose: 900 mg Pantoprazole Sodium (Protonix) 40 mg PO DAILY@0700 [facility] Last Admin: 09/08/17 06:05 Dose: 40 mg Clinda-Benzoyl Perox (1-5% Topical) 0 each TOP BEDTIME [facility] Last Admin: 09/07/17 20:18 Dose: Not Given Sodium Chloride 1 Gm (Tab) 0 each PO TID [facility] Last Admin: 09/08/17 09:05 Dose: 3 each Quetiapine Fumarate (Seroquel) 100 mg PO TID@0700,1200,1600 [facility] Last Admin: 09/08/17 06:05 Dose: 100 mg Quetiapine Fumarate (Seroquel) 400 mg PO BEDTIME [facility] Last Admin: 09/07/17 20:14 Dose: 400 mg Saccharomyces Boulardii (Florastor) 250 mg PO BID [facility] Last Admin: 09/08/17 08:57 Dose: 250 mg Sodium Chloride (Saline Flush) 10 ml FLUSH ASDIRECTED PRN PRN Reason: Keep Vein Open Last Admin: 09/01/17 12:22 Dose: 10 ml Sodium Chloride ([place] Nasal [place]) 0 ml NASBOTH TID PRN PRN Reason: Congestion Trimethoprim/Sulfamethoxazole (Septra Ds) 2 tab PO Q8HR [facility] Last Admin: 09/08/17 06:05 Dose: 2 tab Vitamin E (Vitamin E) 400 units PO BID [facility] Last Admin: 09/08/17 09:01 Dose: 400 units Discontinued Medications Acetaminophen (Tylenol) 975 mg PO NOW ONE Stop: 09/01/17 12:41 Last Admin: 09/01/17 12:53 Dose: 975 mg Diatrizoate Meglum/Diatrizoate Sod (Gastrografin 37%) 90 ml PO ONETIME ONE Stop: 09/01/17 14:53 Last Admin: 09/01/17 15:37 Dose: 90 ml Divalproex Sodium (Depakote) 500 mg PO BID [facility] Hydralazine HCl (Apresoline) 10 mg IVPUSH Q6H PRN PRN Reason: Hypertension Last Admin: 09/05/17 20:52 Dose: 10 mg Sodium Chloride (Normal Saline) 1,000 mls @ 500 mls/hr IV ONETIME ONE Stop: 09/01/17 14:11 Last Admin: 09/01/17 12:20 Dose: 500 mls/hr Sodium Chloride (Normal Saline) 1,000 mls @ 500 mls/hr IV ONETIME ONE Stop: 09/01/17 16:27 Last Admin: 09/01/17 14:29 Dose: 500 mls/hr Ceftriaxone Sodium 2 gm/ (Sodium Chloride) 100 mls @ 200 mls/hr IV ONETIME ONE Stop: 09/01/17 16:26 Last Admin: 09/01/17 16:27 Dose: Not Given Vancomycin HCl 1 gm/ Sodium (Chloride) 250 mls @ 250 mls/hr IV ONETIME ONE Stop: 09/01/17 16:56 Last Admin: 09/01/17 17:11 Dose: 250 mls/hr Ceftriaxone Sodium 2 gm/ (Sodium Chloride) 100 mls @ 200 mls/hr IV ONETIME STA Stop: 09/01/17 16:39 Last Admin: 09/01/17 16:26 Dose: 200 mls/hr Sodium Chloride (Normal Saline) 1,000 mls @ 150 mls/hr IV ASDIRECTED [facility] Last Admin: 09/01/17 17:19 Dose: 150 mls/hr Ceftriaxone Sodium 2 gm/ (Sodium Chloride) 100 mls @ 200 mls/hr IV Q24H [facility] Sodium Chloride (Normal Saline) 1,000 mls @ 100 mls/hr IV ASDIRECTED [facility] Stop: 09/03/17 04:44 Last Admin: 09/02/17 01:52 Dose: 100 mls/hr Vancomycin HCl 1 gm/ Sodium (Chloride) 250 mls @ 250 mls/hr IV Q12H [facility] Last Admin: 09/02/17 04:23 Dose: 250 mls/hr Ceftriaxone Sodium 2 gm/ (Dextrose/Water) 100 mls @ 200 mls/hr IV Q24H [facility] Last Admin: 09/02/17 16:08 Dose: 200 mls/hr Vancomycin HCl 1 gm/ Sodium (Chloride) 250 mls @ 250 mls/hr IV Q8H [facility] Last Admin: 09/03/17 18:25 Dose: Not Given Piperacillin Sod/Tazobactam (Sod 4.5 gm/ Dextrose/Water) 100 mls @ 200 mls/hr IV ONETIME ONE Stop: 09/03/17 09:29 Last Admin: 09/03/17 09:13 Dose: 200 mls/hr Piperacillin Sod/Tazobactam (Sod 4.5 gm/ Dextrose/Water) 100 mls @ 25 mls/hr IV Q8H [facility] Last Admin: 09/07/17 09:24 Dose: 25 mls/hr Vancomycin HCl 1 gm/Vancomycin HCl 500 mg/ Sodium Chloride 500 mls @ 500 mls/ hr IV Q8H [facility] Last Admin: 09/03/17 18:27 Dose: Not Given Vancomycin HCl 1 gm/Vancomycin HCl 500 mg/ Sodium Chloride 500 mls @ 333.333 mls/hr IV Q8H [facility] Last Admin: 09/04/17 05:41 Dose: 333.333 mls/hr Ampicillin Sodium 2 gm/ Sodium (Chloride) 100 mls @ 200 mls/hr IV Q6H [facility] Magnesium Sulfate (Pharmacy To Dose - Magnesium Replacement) 0 dose .XX ASDIRECTED PRN PRN Reason: RX TO WATCH MAG LEVELS Sodium Chloride 3gm (Tablet) 3 gm PO TID [facility] Omeprazole (Omeprazole) 40 mg PO DAILY [facility] Ondansetron HCl (Zofran) 4 mg IVPUSH ONETIME ONE Stop: 09/01/17 12:13 Last Admin: 09/01/17 12:21 Dose: 4 mg Oral Electrolytes (Thermotabs) 1 each PO ONETIME ONE Stop: 09/03/17 21:01 Last Admin: 09/03/17 20:18 Dose: 1 each Oral Electrolytes (Thermotabs) 1 each PO NOW STA Stop: 09/04/17 09:30 Last Admin: 09/04/17 10:05 Dose: 1 each Quetiapine [Seroquel (Xr] 400 Mg) 0 each PO BEDTIME [facility] Last Admin: 09/03/17 22:04 Dose: Not Given Potassium Chloride (Pharmacy To Dose - Potassium Replacement) 0 dose .XX ASDIRECTED PRN PRN Reason: RX TO WATCH K LEVELS Potassium Chloride (Klor-Con M20) 40 meq PO Q4H [facility] Stop: 09/04/17 11:31 Last Admin: 09/04/17 12:34 Dose: 40 meq Temazepam (Restoril) 15 mg PO ONETIME ONE Stop: 09/04/17 01:00 Last Admin: 09/04/17 01:22 Dose: 15 mg Trimethoprim/Sulfamethoxazole (Septra Ds) 2 tab PO Q8HR [facility] Last Admin: 09/07/17 15:55 Dose: Not Given Vancomycin HCl (Pharmacy To Dose - Vancomycin) 0 dose .XX ASDIRECTED PRN PRN Reason: RX TO DOSE VANCOMYCIN Vancomycin HCl (Vancomycin) Confirm Administered Dose 500 mg .ROUTE .STK-MED ONE Stop: 09/03/17 21:26 Last Admin: 09/03/17 21:50 Dose: 500 mg Vancomycin HCl (Vancomycin) Confirm Administered Dose 1 gm .ROUTE .[place]-Vobi ONE Stop: 09/03/17 21:26 Last Admin: 09/03/17 21:50 Dose: 1 gm - Exam Quality Assessment: DVT Prophylaxis General: Alert, Cooperative, No Acute Distress HEENT: Pupils Equal, Pupils Reactive, EOMI Neck: Trachea Midline, No JVD Lungs: Clear to Auscultation, Normal Respiratory Effort Cardiovascular: Regular Rate, Regular Rhythm GI/Abdominal Exam: Normal Bowel Sounds, Soft, Non-Tender, No Organomegaly, No Distention, No Abnormal Bruit, No Mass, Pelvis Stable (Male) Exam: Deferred Extremities: Normal Inspection, Normal Range of Motion, Non-Tender, No Pedal Edema, Normal Capillary Refill Peripheral Pulses: 3+: Radial (L), Radial (R), Posterior Tibial (L), Posterior Tibial (R), Dorsalis Pedis (L), Dorsalis Pedis (R) Skin: Warm, Dry, Intact Neurological: No New Focal Deficit Psy/Mental Status: Alert - Problem List & Annotations (1) Acute renal injury SNOMED Code(s): 41442745 Code(s): N17.9 - ACUTE KIDNEY FAILURE, UNSPECIFIED Status: Resolved Priority: High Current Visit: Yes (2) Elevated C-reactive protein (CRP) SNOMED Code(s): 474604308374858 Code(s): R79.82 - ELEVATED C-REACTIVE PROTEIN (CRP) Status: Acute Priority: High Current Visit: Yes (3) Elevated white blood cell count SNOMED Code(s): 739069119 Code(s): D72.829 - ELEVATED WHITE BLOOD CELL COUNT, UNSPECIFIED Status: Acute Priority: High Current Visit: Yes Qualifiers: Leukocytosis type: bandemia Qualified Code(s): D72.825 - Bandemia (4) Nausea & vomiting SNOMED Code(s): 37112869 Code(s): R11.2 - NAUSEA WITH VOMITING, UNSPECIFIED Status: Resolved Priority: High Current Visit: Yes Qualifiers: Vomiting type: unspecified Vomiting Intractability: non-intractable Qualified Code(s): R11.2 - Nausea with vomiting, unspecified (5) Fever SNOMED Code(s): 165332304 Code(s): R50.9 - FEVER, UNSPECIFIED Status: Acute Priority: High Current Visit: Yes Qualifiers: Fever type: unspecified Qualified Code(s): R50.9 - Fever, unspecified - Problem List Review Problem List Initiated/Reviewed/Updated: Yes - My Orders Last 24 Hours: My Active Orders 09/10/17 05:11 CULTURE BLOOD [] Routine 09/10/17 05:12 CULTURE BLOOD [] Routine - Plan Plan:: I/P: Acute: SIRS--- Bacteremia with gram + cocci in clusters thus far on BC, awaiting further C&S (sensitive to Bactrim DS and Oxacillin; Ampicillin). -WBC 14.04-->13.2-->10K--> increasing last few days, antibiotics switched -CRP 47.1-->slowly trending down, is 13 today -Lactic acid 1.2 -Fever of 102.6 on admit; N&V--? resolved thus far in hospital stay -UA, CXR, abdomen X-ray, AB/pelvis CT, influenza, strep - all negative -Blood cultures obtained; staph aureus, not MRSA. Repeat obtained 48 hours later with 1/4 still + for G+C. Will repeat again at 48 hr christiana -[employer]othes [employer] reports type of gastroenteritis going around [facility] homes recently-- per notes, all house mates and staff at his residence are now ill. -Given 2L of fluid in ED -Fluids as ordered -IV vancomycin and Rocephin started in ED - BC results returned as above, not MRSA- Vancomycin and zosyn DC'd-Start ampicillin 2gm Q6hr -Add Florastor -Antiemeteics -Viral panel negative, -Strep pneumonia negative, -Mycoplasma pneumonia - negative, -Strep screen - negative Mild hyponatremia--130 today -Thermotab one time dose now. -Monitor and follow am labs Resolved Acute Kidney injury--resolved -Unsure of baseline -BUN 27, Creatinine 1.8, eGFR 43---creat 0.7 and stable -2L fluids given in ED -Fluids as ordered -Avoid nephrotoxic drugs -Monitor AM labs Mild Hypokalemia---normal/resolved today- cont to follow -Replete and monitor with daily labs -Mag WNL at 1.9 Chronic: GERD - home meds seizures - home meds, no sz activity thus far anxiety - home meds autism and mild mental retardation vitamin D deficiency - home meds acne- home meds scoliosis Pica---He is on a fluid restricted diet as he consumes excessive amounts of liquids which deplete his sodium. Plan: CM for discharge planning---plans DC back to [facility] when ready- Repeat BC+, several bottles with SA, will change to Ampicillin 2 Gm Q 6H. PT for strengthening Home medications as indicated Routine AM labs GI Prophylaxis - home PPI DVT/PE prophylaxis: SARAH olivier Code status: Full Code; PCP: Dr. Valdovinos at [facility] here in [place]. LOS>96 hours, BC sensitivity needed; changed ATB.
[2017-09-08] MEDS ORDERED: Potassium Chloride/Sodium Chloride Tab PO ONE (13:00)
[2017-09-08] MEDS ORDERED: Sodium Chloride 0.9% 1,000 ML IV SCH (13:15)
[2017-09-08] MEDS: Sodium Chloride 0.9% 1,000 ML IV SCH ×2 (13:25→23:58)
[2017-09-08] MEDS: Multivitamins,Therapeutic Tab PO SCH (22:04)
[2017-09-08] MEDS: Acetaminophen 325 MG Tab PO PRN (22:08)
[2017-09-08] MEDS: Cyclobenzaprine 10 MG Tab PO SCH (22:10)
[2017-09-08] MEDS: Cholecalciferol (Vitamin D3) 1,000 Unit Tab PO SCH (22:10)
[2017-09-08] MEDS: BENZOYL PEROXIDE TOP SCH (22:29)
[2017-09-08] MEDS: CLINDAMYCIN TOP SCH (22:29)
[2017-09-09] MEDS: Ampicillin 2 GM in Sodium Chloride 0.9% 100 ML IV SCH ×4 (02:50→21:52)
[2017-09-09] MEDS: Sulfamethoxazole/Trimethoprim 800-160 MG Tab PO SCH ×3 (06:04→22:09)
[2017-09-09] MEDS: Pantoprazole 40 MG Tab.CR PO SCH (06:05)
[2017-09-09] MEDS: QUEtiapine 100 MG Tab PO SCH ×4 (06:05→22:00)
[2017-09-09] MEDS: OXcarbazepine 300 MG Tab PO SCH ×2 (09:56→22:03)
[2017-09-09] MEDS: Citalopram 20 MG Tab PO SCH (09:57)
[2017-09-09] MEDS: Calcium Carbonate/Vitamin D3 1500 MG-200 Units Tab PO SCH ×2 (09:57→21:56)
[2017-09-09] MEDS: Acetaminophen 325 MG Tab PO SCH ×3 (10:00→21:53)
[2017-09-09] MEDS: Saccharomyces Boulardii (Probiotic) 250 MG Cap PO SCH ×2 (10:03→21:53)
[2017-09-09] MEDS: Vitamin E (dl-alpha-tocopherol acetate) 400 Unit Cap PO SCH ×2 (10:03→22:04)
[2017-09-09] MEDS: Divalproex Sodium Delayed-Release 500 MG Tab.CR PO SCH ×2 (10:03→21:57)
[2017-09-09] MEDS: Furosemide 20 MG Tab PO SCH (10:04)
[2017-09-09] MEDS: Lisinopril 20 MG Tab PO SCH (10:04)
[2017-09-09] MEDS: Metoprolol Tartrate 25 MG Tab PO SCH ×2 (10:04→21:58)
[2017-09-09] MEDS: levETIRAcetam 500 MG Tab PO SCH ×2 (10:06→21:55)
[2017-09-09] MEDS: LORazepam 0.5 MG Tab PO SCH ×4 (10:07→21:53)
[2017-09-09] MEDS: cloNIDine 0.1 MG Tab PO SCH ×4 (10:07→21:55)
[2017-09-09] MEDS: Ferrous Sulfate 325 MG Tab PO SCH ×2 (10:07→22:04)
[2017-09-09] MEDS: Sodium Chloride 1 GM Tab PO SCH ×3 (10:08→21:59)
[2017-09-09] MEDS: Docusate Sodium 100 MG Cap PO SCH ×2 (10:08→21:57)
[2017-09-09] MEDS: Mupirocin Oint 22 GM Tube TOP SCH ×2 (10:29→21:57)
[2017-09-09] MEDS ORDERED: Potassium Chloride/Sodium Chloride Tab PO ONE ×2 (14:52→21:00)
--- NOTE | 2017-09-09 18:44 | PCM.PN ---
- General Info Date of Service: 09/09/17 Admission Dx/Problem (Free Text): Admission Diagnosis/Problem Admission Diagnosis/Problem Bacteremia Subjective Update: In to see Eros today. Staff reports he has been eating well today. He also ambulated earlier with staff. He was given a shower and did well with this. He has been afebrile today. Vitals are stable. His sodium has been low and thermotabs were given this afternoon and another dose will be given tonight. Will continue to monitor and supplement as needed. He received some fluids last night as well because his gap was elevated and nursing reported poor intake yesterday. Blood cultures obtained yesterday had no growth after 1 day. Overall he appears to be improving although we will continue to monitor his progress since his antibiotics were switched. Functional Status: Reports: Pain Controlled, Tolerating Diet, Ambulating, Urinating. Denies: New Symptoms - Review of Systems General: Reports: No Symptoms HEENT: Reports: No Symptoms Pulmonary: Reports: No Symptoms Cardiovascular: Reports: No Symptoms Gastrointestinal: Reports: No Symptoms Genitourinary: Reports: No Symptoms Musculoskeletal: Reports: No Symptoms Skin: Reports: No Symptoms Neurological: Reports: No Symptoms Psychiatric: Reports: No Symptoms - Patient Data Vitals - Most Recent: Last Vital Signs Temp 97.3 F 09/09/17 12:08 Pulse 91 09/09/17 12:08 Resp 18 09/09/17 12:08 BP 103/65 09/09/17 16:49 Pulse Ox 95 09/09/17 12:08 Weight - Most Recent: 156 lb I&O - Last 24 Hours: Intake & Output 09/09/17 09/09/17 09/09/17 06:59 14:59 22:59 Intake Total 1144 120 820 Output Total 1100 Balance 44 120 820 Lab Results Last 24 Hours: Laboratory Results - last 24 hr 09/09/17 09/09/17 Range/Units 05:40 05:45 WBC 12.18 H (4.23-9.07) K/mm3 RBC 4.08 L (4.63-6.08) M/mm3 Hgb 12.9 L (13.7-17.5) gm/L Hct 39.1 L (40.1-51.0) % MCV 95.8 H (79.0-92.2) fl MCH 31.6 (25.7-32.2) pg MCHC 33.0 (32.2-35.5) g/dl RDW Std Deviation 42.0 (35.1-43.9) fL Plt Count 382 H (163-337) K/mm3 MPV 9.7 (9.4-12.3) fl Neut % (Auto) 45.9 (34.0-67.9) % Lymph % (Auto) 12.9 L (21.8-53.1) % [place] % (Auto) 16.8 H (5.3-12.2) % Eos % (Auto) 1.8 (0.8-7.0) Baso % (Auto) 1.6 H (0.1-1.2) % Neut # (Auto) 5.58 H (1.78-5.38) K/mm3 Lymph # (Auto) 1.57 (1.32-3.57) K/mm3 [place] # (Auto) 2.05 H (0.30-0.82) K/mm3 Eos # (Auto) 0.22 (0.04-0.54) K/mm3 Baso # (Auto) 0.20 H (0.01-0.08) K/mm3 Manual Slide Review Normal smear Sodium 133 L (136-145) mEq/L Potassium 4.4 (3.5-5.1) mEq/L Chloride 100 (98-107) mEq/L Carbon Dioxide 25 (21-32) mEq/L Anion Gap 12.4 (5-15) BUN 15 (7-18) mg/dL Creatinine 0.8 (0.7-1.3) mg/dL Est Cr Clr Drug Dosing 125.88 mL/min Estimated GFR (MDRD) > 60 (>60) mL/min BUN/Creatinine Ratio 18.8 H (14-18) Glucose 75 (74-106) mg/dL Calcium 8.9 (8.5-10.1) mg/dL Magnesium 2.2 (1.8-2.4) mg/dl C-Reactive Protein 12.1 H* (<1.0) mg/dL Luís Results Last 24 Hours: Microbiology 09/03/17 17:20 Aerobic Blood Culture - Final Blood - Venous Staphylococcus Aureus Anaerobic Blood Culture - Preliminary NO GROWTH AFTER 6 DAYS 09/03/17 17:28 Aerobic Blood Culture - Final Blood - Venous - Lab Draw Staphylococcus Aureus Anaerobic Blood Culture - Preliminary NO GROWTH AFTER 6 DAYS 09/06/17 14:24 Aerobic Blood Culture - Preliminary Blood - Venous NO GROWTH AFTER 3 DAYS Anaerobic Blood Culture - Preliminary NO GROWTH AFTER 3 DAYS 09/06/17 14:15 Aerobic Blood Culture - Preliminary Blood - Venous - Lab Draw NO GROWTH AFTER 3 DAYS Anaerobic Blood Culture - Preliminary NO GROWTH AFTER 3 DAYS 09/08/17 05:05 Aerobic Blood Culture - Preliminary Blood NO GROWTH AFTER 1 DAY Anaerobic Blood Culture - Preliminary NO GROWTH AFTER 1 DAY 09/08/17 04:55 Aerobic Blood Culture - Preliminary Blood NO GROWTH AFTER 1 DAY Anaerobic Blood Culture - Preliminary NO GROWTH AFTER 1 DAY Med Orders - Current: Current Medications Acetaminophen (Tylenol) 650 mg PO Q4H PRN PRN Reason: Pain (Mild 1-3)/fever Last Admin: 09/03/17 04:24 Dose: 650 mg Acetaminophen (Tylenol) 650 mg PO TID [facility] Last Admin: 09/09/17 14:16 Dose: 650 mg Hydrocodone Bitart/Acetaminophen ([place] 325-5 Mg) 1 tab PO Q4H PRN PRN Reason: Pain (moderate 4-6) Last Admin: 09/07/17 15:57 Dose: 1 tab Albuterol/Ipratropium (Duoneb 3.0-0.5 Mg/3 Ml) 3 ml NEB Q4H PRN PRN Reason: Shortness Of Breath/wheezing Calcium Carbonate (Calcium Carbonate/Vitamin D 1500 Mg-200 Unit) 1 tab PO BID [facility] Last Admin: 09/09/17 09:57 Dose: 1 tab Cholecalciferol (Vitamin D3) 1,000 units PO BEDTIME [facility] Last Admin: 09/08/17 22:10 Dose: 1,000 units Citalopram Hydrobromide (Celexa) 30 mg PO DAILY [facility] Last Admin: 09/09/17 09:57 Dose: 30 mg Clonidine HCl (Catapres) 0.1 mg PO QID [facility] Last Admin: 09/09/17 16:49 Dose: 0.1 mg Cyclobenzaprine HCl (Flexeril) 10 mg PO BEDTIME [facility] Last Admin: 09/08/17 22:10 Dose: 10 mg Diphenhydramine HCl (Benadryl) 25 mg IVPUSH Q4H PRN PRN Reason: Itching Last Admin: 09/04/17 13:22 Dose: 25 mg Divalproex Sodium (Depakote) 500 mg PO BID [facility] Last Admin: 09/09/17 10:03 Dose: 500 mg Docusate Sodium (Colace) 100 mg PO BID [facility] Last Admin: 09/09/17 10:08 Dose: 100 mg Ferrous Sulfate (Ferrous Sulfate) 325 mg PO BID [facility] Last Admin: 09/09/17 10:07 Dose: 325 mg Furosemide (Lasix) 20 mg PO DAILY [facility] Last Admin: 09/09/17 10:04 Dose: 20 mg Hydralazine HCl (Apresoline) 20 mg IVPUSH Q6H PRN PRN Reason: Hypertension Ampicillin Sodium 2 gm/ Sodium (Chloride) 100 mls @ 200 mls/hr IV Q6H [facility] Last Admin: 09/09/17 14:13 Dose: 200 mls/hr Ibuprofen (Motrin) 600 mg PO Q6H PRN PRN Reason: fever Last Admin: 09/08/17 05:04 Dose: 600 mg Imipramine HCl (Imipramine Hcl) 75 mg PO BEDTIME [facility] Last Admin: 09/08/17 22:05 Dose: 75 mg Levetiracetam (Keppra) 1,500 mg PO BID [facility] Last Admin: 09/09/17 10:06 Dose: 1,500 mg Lisinopril (Prinivil) 20 mg PO DAILY [facility] Last Admin: 09/09/17 10:04 Dose: 20 mg Lorazepam (Ativan) 2 mg IVPUSH Q4H PRN PRN Reason: Seizures Lorazepam (Ativan) 0.5 mg PO QID [facility] Last Admin: 09/09/17 16:48 Dose: 0.5 mg Metoprolol Tartrate (Lopressor) 5 mg IVPUSH Q4H PRN PRN Reason: Tachycardia Metoprolol Tartrate (Lopressor) 25 mg PO Q12HR [facility] Last Admin: 09/09/17 10:04 Dose: 25 mg Multivitamins (Thera) 1 each PO BEDTIME [facility] Last Admin: 09/08/17 22:04 Dose: 1 each Mupirocin (Bactroban Oint) 0 gm TOP BID [facility] Last Admin: 09/09/17 10:29 Dose: 22 gm Ondansetron HCl (Zofran) 4 mg IVPUSH Q4H PRN PRN Reason: Nausea Last Admin: 09/04/17 18:30 Dose: 4 mg Oxcarbazepine (Trileptal) 900 mg PO BID [facility] Last Admin: 09/09/17 09:56 Dose: 900 mg Pantoprazole Sodium (Protonix) 40 mg PO DAILY@0700 [facility] Last Admin: 09/09/17 06:05 Dose: 40 mg Clinda-Benzoyl Perox (1-5% Topical) 0 each TOP BEDTIME [facility] Last Admin: 09/08/17 22:29 Dose: Not Given Sodium Chloride 1 Gm (Tab) 0 each PO TID [facility] Last Admin: 09/09/17 14:17 Dose: 3 each Quetiapine Fumarate (Seroquel) 100 mg PO TID@0700,1200,1600 [facility] Last Admin: 09/09/17 15:44 Dose: 100 mg Quetiapine Fumarate (Seroquel) 400 mg PO BEDTIME [facility] Last Admin: 09/08/17 22:06 Dose: 400 mg Saccharomyces Boulardii (Florastor) 250 mg PO BID [facility] Last Admin: 09/09/17 10:03 Dose: 250 mg Sodium Chloride (Saline Flush) 10 ml FLUSH ASDIRECTED PRN PRN Reason: Keep Vein Open Last Admin: 09/01/17 12:22 Dose: 10 ml Sodium Chloride ([place] Nasal [place]) 0 ml NASBOTH TID PRN PRN Reason: Congestion Trimethoprim/Sulfamethoxazole (Septra Ds) 2 tab PO Q8HR [facility] Last Admin: 09/09/17 14:16 Dose: 2 tab Vitamin E (Vitamin E) 400 units PO BID [facility] Last Admin: 09/09/17 10:03 Dose: 400 units Discontinued Medications Acetaminophen (Tylenol) 975 mg PO NOW ONE Stop: 09/01/17 12:41 Last Admin: 09/01/17 12:53 Dose: 975 mg Diatrizoate Meglum/Diatrizoate Sod (Gastrografin 37%) 90 ml PO ONETIME ONE Stop: 09/01/17 14:53 Last Admin: 09/01/17 15:37 Dose: 90 ml Divalproex Sodium (Depakote) 500 mg PO BID [facility] Hydralazine HCl (Apresoline) 10 mg IVPUSH Q6H PRN PRN Reason: Hypertension Last Admin: 09/05/17 20:52 Dose: 10 mg Sodium Chloride (Normal Saline) 1,000 mls @ 500 mls/hr IV ONETIME ONE Stop: 09/01/17 14:11 Last Admin: 09/01/17 12:20 Dose: 500 mls/hr Sodium Chloride (Normal Saline) 1,000 mls @ 500 mls/hr IV ONETIME ONE Stop: 09/01/17 16:27 Last Admin: 09/01/17 14:29 Dose: 500 mls/hr Ceftriaxone Sodium 2 gm/ (Sodium Chloride) 100 mls @ 200 mls/hr IV ONETIME ONE Stop: 09/01/17 16:26 Last Admin: 09/01/17 16:27 Dose: Not Given Vancomycin HCl 1 gm/ Sodium (Chloride) 250 mls @ 250 mls/hr IV ONETIME ONE Stop: 09/01/17 16:56 Last Admin: 09/01/17 17:11 Dose: 250 mls/hr Ceftriaxone Sodium 2 gm/ (Sodium Chloride) 100 mls @ 200 mls/hr IV ONETIME STA Stop: 09/01/17 16:39 Last Admin: 09/01/17 16:26 Dose: 200 mls/hr Sodium Chloride (Normal Saline) 1,000 mls @ 150 mls/hr IV ASDIRECTED [facility] Last Admin: 09/01/17 17:19 Dose: 150 mls/hr Ceftriaxone Sodium 2 gm/ (Sodium Chloride) 100 mls @ 200 mls/hr IV Q24H [facility] Sodium Chloride (Normal Saline) 1,000 mls @ 100 mls/hr IV ASDIRECTED [facility] Stop: 09/03/17 04:44 Last Admin: 09/02/17 01:52 Dose: 100 mls/hr Vancomycin HCl 1 gm/ Sodium (Chloride) 250 mls @ 250 mls/hr IV Q12H [facility] Last Admin: 09/02/17 04:23 Dose: 250 mls/hr Ceftriaxone Sodium 2 gm/ (Dextrose/Water) 100 mls @ 200 mls/hr IV Q24H [facility] Last Admin: 09/02/17 16:08 Dose: 200 mls/hr Vancomycin HCl 1 gm/ Sodium (Chloride) 250 mls @ 250 mls/hr IV Q8H [facility] Last Admin: 09/03/17 18:25 Dose: Not Given Piperacillin Sod/Tazobactam (Sod 4.5 gm/ Dextrose/Water) 100 mls @ 200 mls/hr IV ONETIME ONE Stop: 09/03/17 09:29 Last Admin: 09/03/17 09:13 Dose: 200 mls/hr Piperacillin Sod/Tazobactam (Sod 4.5 gm/ Dextrose/Water) 100 mls @ 25 mls/hr IV Q8H [facility] Last Admin: 09/07/17 09:24 Dose: 25 mls/hr Vancomycin HCl 1 gm/Vancomycin HCl 500 mg/ Sodium Chloride 500 mls @ 500 mls/ hr IV Q8H [facility] Last Admin: 09/03/17 18:27 Dose: Not Given Vancomycin HCl 1 gm/Vancomycin HCl 500 mg/ Sodium Chloride 500 mls @ 333.333 mls/hr IV Q8H [facility] Last Admin: 09/04/17 05:41 Dose: 333.333 mls/hr Ampicillin Sodium 2 gm/ Sodium (Chloride) 100 mls @ 200 mls/hr IV Q6H [facility] Sodium Chloride (Normal Saline) 1,000 mls @ 100 mls/hr IV ASDIRECTED [facility] Stop: 09/08/17 23:14 Last Admin: 09/08/17 18:19 Dose: Not Given Sodium Chloride (Normal Saline) 1,000 mls @ 100 mls/hr IV ASDIRECTED [facility] Stop: 09/09/17 23:29 Last Admin: 09/08/17 23:58 Dose: 100 mls/hr Magnesium Sulfate (Pharmacy To Dose - Magnesium Replacement) 0 dose .XX ASDIRECTED PRN PRN Reason: RX TO WATCH MAG LEVELS Sodium Chloride 3gm (Tablet) 3 gm PO TID [facility] Omeprazole (Omeprazole) 40 mg PO DAILY [facility] Ondansetron HCl (Zofran) 4 mg IVPUSH ONETIME ONE Stop: 09/01/17 12:13 Last Admin: 09/01/17 12:21 Dose: 4 mg Oral Electrolytes (Thermotabs) 1 each PO ONETIME ONE Stop: 09/03/17 21:01 Last Admin: 09/03/17 20:18 Dose: 1 each Oral Electrolytes (Thermotabs) 1 each PO NOW STA Stop: 09/04/17 09:30 Last Admin: 09/04/17 10:05 Dose: 1 each Oral Electrolytes (Thermotabs) 1 each PO ONETIME ONE Stop: 09/08/17 13:01 Last Admin: 09/08/17 13:31 Dose: 1 each Oral Electrolytes (Thermotabs) 1 each PO ONETIME ONE Stop: 09/09/17 14:53 Last Admin: 09/09/17 15:44 Dose: 1 each Quetiapine [Seroquel (Xr] 400 Mg) 0 each PO BEDTIME [facility] Last Admin: 09/03/17 22:04 Dose: Not Given Potassium Chloride (Pharmacy To Dose - Potassium Replacement) 0 dose .XX ASDIRECTED PRN PRN Reason: RX TO WATCH K LEVELS Potassium Chloride (Klor-Con M20) 40 meq PO Q4H [facility] Stop: 09/04/17 11:31 Last Admin: 09/04/17 12:34 Dose: 40 meq Temazepam (Restoril) 15 mg PO ONETIME ONE Stop: 09/04/17 01:00 Last Admin: 09/04/17 01:22 Dose: 15 mg Trimethoprim/Sulfamethoxazole (Septra Ds) 2 tab PO Q8HR [facility] Last Admin: 09/07/17 15:55 Dose: Not Given Vancomycin HCl (Pharmacy To Dose - Vancomycin) 0 dose .XX ASDIRECTED PRN PRN Reason: RX TO DOSE VANCOMYCIN Vancomycin HCl (Vancomycin) Confirm Administered Dose 500 mg .ROUTE .STK-MED ONE Stop: 09/03/17 21:26 Last Admin: 09/03/17 21:50 Dose: 500 mg Vancomycin HCl (Vancomycin) Confirm Administered Dose 1 gm .ROUTE .STK-MED ONE Stop: 09/03/17 21:26 Last Admin: 09/03/17 21:50 Dose: 1 gm - Exam Quality Assessment: DVT Prophylaxis General: Alert, Cooperative, No Acute Distress HEENT: Pupils Equal, Pupils Reactive, EOMI, Mucous Membr. Moist/[place] Neck: Supple, Trachea Midline, No JVD Lungs: Clear to Auscultation, Normal Respiratory Effort Cardiovascular: Regular Rate, Regular Rhythm GI/Abdominal Exam: Normal Bowel Sounds, Soft, Non-Tender, No Organomegaly, No Distention, No Abnormal Bruit, No Mass, Pelvis Stable (Male) Exam: Deferred Extremities: Normal Inspection, Normal Range of Motion, Non-Tender, No Pedal Edema, Normal Capillary Refill Peripheral Pulses: 2+: Posterior Tibial (L), Posterior Tibial (R), Dorsalis Pedis (L), Dorsalis Pedis (R), 3+: Radial (L), Radial (R) Skin: Warm, Dry, Intact Neurological: No New Focal Deficit Psy/Mental Status: Alert - Problem List & Annotations (1) Acute renal injury SNOMED Code(s): 37899309 Code(s): N17.9 - ACUTE KIDNEY FAILURE, UNSPECIFIED Status: Resolved Priority: High Current Visit: Yes (2) Elevated C-reactive protein (CRP) SNOMED Code(s): 195762962993414 Code(s): R79.82 - ELEVATED C-REACTIVE PROTEIN (CRP) Status: Acute Priority: High Current Visit: Yes (3) Elevated white blood cell count SNOMED Code(s): 938789370 Code(s): D72.829 - ELEVATED WHITE BLOOD CELL COUNT, UNSPECIFIED Status: Acute Priority: High Current Visit: Yes Qualifiers: Leukocytosis type: bandemia Qualified Code(s): D72.825 - Bandemia (4) Nausea & vomiting SNOMED Code(s): 81715930 Code(s): R11.2 - NAUSEA WITH VOMITING, UNSPECIFIED Status: Resolved Priority: High Current Visit: Yes Qualifiers: Vomiting type: unspecified Vomiting Intractability: non-intractable Qualified Code(s): R11.2 - Nausea with vomiting, unspecified (5) Fever SNOMED Code(s): 776079154 Code(s): R50.9 - FEVER, UNSPECIFIED Status: Acute Priority: High Current Visit: Yes Qualifiers: Fever type: unspecified Qualified Code(s): R50.9 - Fever, unspecified - Problem List Review Problem List Initiated/Reviewed/Updated: Yes - My Orders Last 24 Hours: My Active Orders 09/10/17 05:11 CULTURE BLOOD [BC] Routine 09/10/17 05:12 CULTURE BLOOD [BC] Routine - Plan Plan:: I/P: Acute: SIRS--- Bacteremia with staph aureus (sensitive to Bactrim DS and Oxacillin; Ampicillin). -WBC 14.04-->13.2-->10K--> increasing last few days, antibiotics switched--> trending downward -CRP 47.1-->slowly trending down, is 12.1 today -Lactic acid 1.2 -Fever of 102.6 on admit; N&V--? resolved thus far in hospital stay -UA, CXR, abdomen X-ray, AB/pelvis CT, influenza, strep - all negative -Blood cultures obtained; staph aureus, not MRSA. Repeat obtained 48 hours later with 1 still + for staph aureus. -Repeat Blood cultures from 09/08/17 show no growth after 1 day. -Naturalization Examiner reports type of gastroenteritis going around [facility] homes recently-- per SW notes, all house mates and staff at his residence are now ill. -Given 2L of fluid in ED -Fluids as ordered -IV vancomycin and Rocephin started in ED - BC results returned as above, not MRSA- Vancomycin and zosyn DC'd-Start ampicillin 2gm Q6hr -Add Florastor -Antiemeteics -Viral panel negative, -Strep pneumonia negative, -Mycoplasma pneumonia - negative, -Strep screen - negative Mild hyponatremia--up to 133 today -Thermotab one time dose now and another tonight -Monitor and follow am labs Resolved Acute Kidney injury--resolved -Unsure of baseline -BUN 27, Creatinine 1.8, eGFR 43---creat 0.7 and stable -2L fluids given in ED -Fluids as ordered -Avoid nephrotoxic drugs -Monitor AM labs Mild Hypokalemia---normal/resolved today- cont to follow -Replete and monitor with daily labs -Mag WNL at 1.9 Chronic: GERD - home meds seizures - home meds, no sz activity thus far anxiety - home meds autism and mild mental retardation vitamin D deficiency - home meds acne- home meds scoliosis Pica---He is on a fluid restricted diet as he consumes excessive amounts of liquids which deplete his sodium. Plan: CM for discharge planning---plans DC back to [facility] when ready- Repeat BC+, several bottles with SA, will change to Ampicillin 2 Gm Q 6H. PT for strengthening Home medications as indicated Routine AM labs GI Prophylaxis - home PPI DVT/PE prophylaxis: SARAH olivier Code status: Full Code; PCP: Dr. Valdovinos at [facility] here in [place]. LOS>96 hours, BC sensitivity needed; changed ATB; slow progress
[2017-09-09] MEDS: Multivitamins,Therapeutic Tab PO SCH (21:55)
[2017-09-09] MEDS: Cyclobenzaprine 10 MG Tab PO SCH (21:58)
[2017-09-09] MEDS: CLINDAMYCIN TOP SCH (21:59)
[2017-09-09] MEDS: BENZOYL PEROXIDE TOP SCH (21:59)
[2017-09-09] MEDS: Cholecalciferol (Vitamin D3) 1,000 Unit Tab PO SCH (22:03)
[2017-09-10] MEDS: Ampicillin 2 GM in Sodium Chloride 0.9% 100 ML IV SCH ×4 (02:51→20:14)
[2017-09-10] MEDS: QUEtiapine 100 MG Tab PO SCH ×4 (06:33→20:33)
[2017-09-10] MEDS: Sulfamethoxazole/Trimethoprim 800-160 MG Tab PO SCH ×3 (06:33→21:17)
[2017-09-10] MEDS: Pantoprazole 40 MG Tab.CR PO SCH (06:33)
[2017-09-10] MEDS: Docusate Sodium 100 MG Cap PO SCH ×2 (08:15→20:32)
[2017-09-10] MEDS: Acetaminophen 325 MG Tab PO SCH ×3 (08:15→20:27)
[2017-09-10] MEDS: Saccharomyces Boulardii (Probiotic) 250 MG Cap PO SCH ×2 (08:15→20:26)
[2017-09-10] MEDS: levETIRAcetam 500 MG Tab PO SCH ×2 (08:16→20:28)
[2017-09-10] MEDS: LORazepam 0.5 MG Tab PO SCH ×4 (08:16→20:31)
[2017-09-10] MEDS: Ferrous Sulfate 325 MG Tab PO SCH ×2 (08:16→20:30)
[2017-09-10] MEDS: Furosemide 20 MG Tab PO SCH (08:16)
[2017-09-10] MEDS: cloNIDine 0.1 MG Tab PO SCH ×4 (08:17→20:25)
[2017-09-10] MEDS: Vitamin E (dl-alpha-tocopherol acetate) 400 Unit Cap PO SCH ×2 (08:27→20:26)
[2017-09-10] MEDS: Calcium Carbonate/Vitamin D3 1500 MG-200 Units Tab PO SCH ×2 (08:28→20:26)
[2017-09-10] MEDS: Citalopram 20 MG Tab PO SCH (08:28)
[2017-09-10] MEDS: OXcarbazepine 300 MG Tab PO SCH ×2 (08:29→20:33)
[2017-09-10] MEDS: Divalproex Sodium Delayed-Release 500 MG Tab.CR PO SCH ×2 (08:30→20:26)
[2017-09-10] MEDS: Lisinopril 20 MG Tab PO SCH (08:31)
[2017-09-10] MEDS: Metoprolol Tartrate 25 MG Tab PO SCH ×2 (08:31→20:28)
[2017-09-10] MEDS: Sodium Chloride 1 GM Tab PO SCH ×3 (08:31→20:32)
[2017-09-10] MEDS: Mupirocin Oint 22 GM Tube TOP SCH ×2 (08:33→20:37)
--- NOTE | 2017-09-10 16:29 | PCM.PN ---
- General Info Date of Service: 09/10/17 Admission Dx/Problem (Free Text): Admission Diagnosis/Problem Admission Diagnosis/Problem Bacteremia Subjective Update: In to see Eros santos. He is resting comfortably in bed. Nursing reports no concerns overnight or today. He is afebrile. Cultures returned no growth again today. He has no concerns when asked. WBC and CRP did increase slightly. I discussed this with Dr. Guzman and she feels we should continue current treatment and continue to monitor labs. He is ambulating regularly with staff. Functional Status: Reports: Pain Controlled, Tolerating Diet, Ambulating, Urinating. Denies: New Symptoms - Review of Systems General: Reports: No Symptoms. Denies: Fever, Weakness, Fatigue HEENT: Reports: No Symptoms Pulmonary: Reports: No Symptoms. Denies: Shortness of Breath, Cough, Sputum Cardiovascular: Reports: No Symptoms Gastrointestinal: Reports: No Symptoms. Denies: Abdominal Pain, Constipation, Diarrhea, Nausea, Vomiting Genitourinary: Reports: No Symptoms Musculoskeletal: Reports: No Symptoms Skin: Reports: No Symptoms Neurological: Reports: No Symptoms Psychiatric: Reports: No Symptoms - Patient Data Vitals - Most Recent: Last Vital Signs Temp 99 F 09/10/17 03:47 Pulse 103 H 09/10/17 08:31 Resp 12 09/10/17 03:33 BP 114/67 09/10/17 12:51 Pulse Ox 94 L 09/10/17 03:33 Weight - Most Recent: 155 lb 6.4 oz I&O - Last 24 Hours: Intake & Output 09/10/17 09/10/17 09/10/17 06:59 14:59 22:59 Intake Total 720 120 440 Balance 720 120 440 Lab Results Last 24 Hours: Laboratory Results - last 24 hr 09/10/17 09/10/17 Range/Units 05:35 05:35 WBC 12.80 H (4.23-9.07) K/mm3 RBC 3.98 L (4.63-6.08) M/mm3 Hgb 12.5 L (13.7-17.5) gm/L Hct 38.5 L (40.1-51.0) % MCV 96.7 H (79.0-92.2) fl MCH 31.4 (25.7-32.2) pg MCHC 32.5 (32.2-35.5) g/dl RDW Std Deviation 42.8 (35.1-43.9) fL Plt Count 401 H (163-337) K/mm3 MPV 9.6 (9.4-12.3) fl Neut % (Auto) 49.5 (34.0-67.9) % Lymph % (Auto) 14.5 L (21.8-53.1) % [place] % (Auto) 17.0 H (5.3-12.2) % Eos % (Auto) 1.4 (0.8-7.0) Baso % (Auto) 0.9 (0.1-1.2) % Neut # (Auto) 6.33 H (1.78-5.38) K/mm3 Lymph # (Auto) 1.86 (1.32-3.57) K/mm3 [place] # (Auto) 2.18 H (0.30-0.82) K/mm3 Eos # (Auto) 0.18 (0.04-0.54) K/mm3 Baso # (Auto) 0.11 H (0.01-0.08) K/mm3 Manual Slide Review Abnormal smear Sodium 136 (136-145) mEq/L Potassium 4.7 (3.5-5.1) mEq/L Chloride 102 (98-107) mEq/L Carbon Dioxide 24 (21-32) mEq/L Anion Gap 14.7 (5-15) BUN 17 (7-18) mg/dL Creatinine 0.9 (0.7-1.3) mg/dL Est Cr Clr Drug Dosing 111.89 mL/min Estimated GFR (MDRD) > 60 (>60) mL/min BUN/Creatinine Ratio 18.9 H (14-18) Glucose 75 (74-106) mg/dL Calcium 8.9 (8.5-10.1) mg/dL Magnesium 2.2 (1.8-2.4) mg/dl C-Reactive Protein 12.8 H* (<1.0) mg/dL Luís Results Last 24 Hours: Microbiology 09/06/17 14:24 Aerobic Blood Culture - Preliminary Blood - Venous NO GROWTH AFTER 4 DAYS Anaerobic Blood Culture - Preliminary NO GROWTH AFTER 4 DAYS 09/06/17 14:15 Aerobic Blood Culture - Preliminary Blood - Venous - Lab Draw NO GROWTH AFTER 4 DAYS Anaerobic Blood Culture - Preliminary NO GROWTH AFTER 4 DAYS 09/08/17 05:05 Aerobic Blood Culture - Preliminary Blood NO GROWTH AFTER 2 DAYS Anaerobic Blood Culture - Preliminary NO GROWTH AFTER 2 DAYS 09/08/17 04:55 Aerobic Blood Culture - Preliminary Blood NO GROWTH AFTER 2 DAYS Anaerobic Blood Culture - Preliminary NO GROWTH AFTER 2 DAYS 09/03/17 17:20 Aerobic Blood Culture - Final Blood - Venous Staphylococcus Aureus Anaerobic Blood Culture - Preliminary NO GROWTH AFTER 6 DAYS 09/03/17 17:28 Aerobic Blood Culture - Final Blood - Venous - Lab Draw Staphylococcus Aureus Anaerobic Blood Culture - Preliminary NO GROWTH AFTER 6 DAYS Med Orders - Current: Current Medications Acetaminophen (Tylenol) 650 mg PO Q4H PRN PRN Reason: Pain (Mild 1-3)/fever Last Admin: 09/03/17 04:24 Dose: 650 mg Acetaminophen (Tylenol) 650 mg PO TID [facility] Last Admin: 09/10/17 14:38 Dose: 650 mg Hydrocodone Bitart/Acetaminophen ([place] 325-5 Mg) 1 tab PO Q4H PRN PRN Reason: Pain (moderate 4-6) Last Admin: 09/07/17 15:57 Dose: 1 tab Albuterol/Ipratropium (Duoneb 3.0-0.5 Mg/3 Ml) 3 ml NEB Q4H PRN PRN Reason: Shortness Of Breath/wheezing Calcium Carbonate (Calcium Carbonate/Vitamin D 1500 Mg-200 Unit) 1 tab PO BID [facility] Last Admin: 09/10/17 08:28 Dose: 1 tab Cholecalciferol (Vitamin D3) 1,000 units PO BEDTIME [facility] Last Admin: 09/09/17 22:03 Dose: 1,000 units Citalopram Hydrobromide (Celexa) 30 mg PO DAILY [facility] Last Admin: 09/10/17 08:28 Dose: 30 mg Clonidine HCl (Catapres) 0.1 mg PO QID [facility] Last Admin: 09/10/17 12:51 Dose: 0.1 mg Cyclobenzaprine HCl (Flexeril) 10 mg PO BEDTIME [facility] Last Admin: 09/09/17 21:58 Dose: 10 mg Diphenhydramine HCl (Benadryl) 25 mg IVPUSH Q4H PRN PRN Reason: Itching Last Admin: 09/04/17 13:22 Dose: 25 mg Divalproex Sodium (Depakote) 500 mg PO BID [facility] Last Admin: 09/10/17 08:30 Dose: 500 mg Docusate Sodium (Colace) 100 mg PO BID [facility] Last Admin: 09/10/17 08:15 Dose: 100 mg Ferrous Sulfate (Ferrous Sulfate) 325 mg PO BID [facility] Last Admin: 09/10/17 08:16 Dose: 325 mg Furosemide (Lasix) 20 mg PO DAILY [facility] Last Admin: 09/10/17 08:16 Dose: 20 mg Hydralazine HCl (Apresoline) 20 mg IVPUSH Q6H PRN PRN Reason: Hypertension Ampicillin Sodium 2 gm/ Sodium (Chloride) 100 mls @ 200 mls/hr IV Q6H [facility] Last Admin: 09/10/17 14:40 Dose: 200 mls/hr Ibuprofen (Motrin) 600 mg PO Q6H PRN PRN Reason: fever Last Admin: 09/08/17 05:04 Dose: 600 mg Imipramine HCl (Imipramine Hcl) 75 mg PO BEDTIME [facility] Last Admin: 09/09/17 21:56 Dose: 75 mg Levetiracetam (Keppra) 1,500 mg PO BID [facility] Last Admin: 09/10/17 08:16 Dose: 1,500 mg Lisinopril (Prinivil) 20 mg PO DAILY [facility] Last Admin: 09/10/17 08:31 Dose: 20 mg Lorazepam (Ativan) 2 mg IVPUSH Q4H PRN PRN Reason: Seizures Lorazepam (Ativan) 0.5 mg PO QID [facility] Last Admin: 09/10/17 12:53 Dose: 0.5 mg Metoprolol Tartrate (Lopressor) 5 mg IVPUSH Q4H PRN PRN Reason: Tachycardia Metoprolol Tartrate (Lopressor) 25 mg PO Q12HR [facility] Last Admin: 09/10/17 08:31 Dose: 25 mg Multivitamins (Thera) 1 each PO BEDTIME [facility] Last Admin: 09/09/17 21:55 Dose: 1 each Mupirocin (Bactroban Oint) 0 gm TOP BID [facility] Last Admin: 09/10/17 08:33 Dose: 1 applic Ondansetron HCl (Zofran) 4 mg IVPUSH Q4H PRN PRN Reason: Nausea Last Admin: 09/04/17 18:30 Dose: 4 mg Oxcarbazepine (Trileptal) 900 mg PO BID [facility] Last Admin: 09/10/17 08:29 Dose: 900 mg Pantoprazole Sodium (Protonix) 40 mg PO DAILY@0700 [facility] Last Admin: 09/10/17 06:33 Dose: 40 mg Clinda-Benzoyl Perox (1-5% Topical) 0 each TOP BEDTIME [facility] Last Admin: 09/09/17 21:59 Dose: Not Given Sodium Chloride 1 Gm (Tab) 0 each PO TID [facility] Last Admin: 09/10/17 14:40 Dose: 3 each Quetiapine Fumarate (Seroquel) 100 mg PO TID@0700,1200,1600 [facility] Last Admin: 09/10/17 12:52 Dose: 100 mg Quetiapine Fumarate (Seroquel) 400 mg PO BEDTIME [facility] Last Admin: 09/09/17 22:00 Dose: 400 mg Saccharomyces Boulardii (Florastor) 250 mg PO BID [facility] Last Admin: 09/10/17 08:15 Dose: 250 mg Sodium Chloride (Saline Flush) 10 ml FLUSH ASDIRECTED PRN PRN Reason: Keep Vein Open Last Admin: 09/01/17 12:22 Dose: 10 ml Sodium Chloride ([place]) 0 ml NASBOTH TID PRN PRN Reason: Congestion Trimethoprim/Sulfamethoxazole (Septra Ds) 2 tab PO Q8HR [facility] Last Admin: 09/10/17 14:37 Dose: 2 tab Vitamin E (Vitamin E) 400 units PO BID [facility] Last Admin: 09/10/17 08:27 Dose: 400 units Discontinued Medications Acetaminophen (Tylenol) 975 mg PO NOW ONE Stop: 09/01/17 12:41 Last Admin: 09/01/17 12:53 Dose: 975 mg Diatrizoate Meglum/Diatrizoate Sod (Gastrografin 37%) 90 ml PO ONETIME ONE Stop: 09/01/17 14:53 Last Admin: 09/01/17 15:37 Dose: 90 ml Divalproex Sodium (Depakote) 500 mg PO BID [facility] Hydralazine HCl (Apresoline) 10 mg IVPUSH Q6H PRN PRN Reason: Hypertension Last Admin: 09/05/17 20:52 Dose: 10 mg Sodium Chloride (Normal Saline) 1,000 mls @ 500 mls/hr IV ONETIME ONE Stop: 09/01/17 14:11 Last Admin: 09/01/17 12:20 Dose: 500 mls/hr Sodium Chloride (Normal Saline) 1,000 mls @ 500 mls/hr IV ONETIME ONE Stop: 09/01/17 16:27 Last Admin: 09/01/17 14:29 Dose: 500 mls/hr Ceftriaxone Sodium 2 gm/ (Sodium Chloride) 100 mls @ 200 mls/hr IV ONETIME ONE Stop: 09/01/17 16:26 Last Admin: 09/01/17 16:27 Dose: Not Given Vancomycin HCl 1 gm/ Sodium (Chloride) 250 mls @ 250 mls/hr IV ONETIME ONE Stop: 09/01/17 16:56 Last Admin: 09/01/17 17:11 Dose: 250 mls/hr Ceftriaxone Sodium 2 gm/ (Sodium Chloride) 100 mls @ 200 mls/hr IV ONETIME STA Stop: 09/01/17 16:39 Last Admin: 09/01/17 16:26 Dose: 200 mls/hr Sodium Chloride (Normal Saline) 1,000 mls @ 150 mls/hr IV ASDIRECTED [facility] Last Admin: 09/01/17 17:19 Dose: 150 mls/hr Ceftriaxone Sodium 2 gm/ (Sodium Chloride) 100 mls @ 200 mls/hr IV Q24H [facility] Sodium Chloride (Normal Saline) 1,000 mls @ 100 mls/hr IV ASDIRECTED [facility] Stop: 09/03/17 04:44 Last Admin: 09/02/17 01:52 Dose: 100 mls/hr Vancomycin HCl 1 gm/ Sodium (Chloride) 250 mls @ 250 mls/hr IV Q12H [facility] Last Admin: 09/02/17 04:23 Dose: 250 mls/hr Ceftriaxone Sodium 2 gm/ (Dextrose/Water) 100 mls @ 200 mls/hr IV Q24H [facility] Last Admin: 09/02/17 16:08 Dose: 200 mls/hr Vancomycin HCl 1 gm/ Sodium (Chloride) 250 mls @ 250 mls/hr IV Q8H [facility] Last Admin: 09/03/17 18:25 Dose: Not Given Piperacillin Sod/Tazobactam (Sod 4.5 gm/ Dextrose/Water) 100 mls @ 200 mls/hr IV ONETIME ONE Stop: 09/03/17 09:29 Last Admin: 09/03/17 09:13 Dose: 200 mls/hr Piperacillin Sod/Tazobactam (Sod 4.5 gm/ Dextrose/Water) 100 mls @ 25 mls/hr IV Q8H [facility] Last Admin: 09/07/17 09:24 Dose: 25 mls/hr Vancomycin HCl 1 gm/Vancomycin HCl 500 mg/ Sodium Chloride 500 mls @ 500 mls/ hr IV Q8H [facility] Last Admin: 09/03/17 18:27 Dose: Not Given Vancomycin HCl 1 gm/Vancomycin HCl 500 mg/ Sodium Chloride 500 mls @ 333.333 mls/hr IV Q8H [facility] Last Admin: 09/04/17 05:41 Dose: 333.333 mls/hr Ampicillin Sodium 2 gm/ Sodium (Chloride) 100 mls @ 200 mls/hr IV Q6H [facility] Sodium Chloride (Normal Saline) 1,000 mls @ 100 mls/hr IV ASDIRECTED [facility] Stop: 09/08/17 23:14 Last Admin: 09/08/17 18:19 Dose: Not Given Sodium Chloride (Normal Saline) 1,000 mls @ 100 mls/hr IV ASDIRECTED [facility] Stop: 09/09/17 23:29 Last Admin: 09/08/17 23:58 Dose: 100 mls/hr Magnesium Sulfate (Pharmacy To Dose - Magnesium Replacement) 0 dose .XX ASDIRECTED PRN PRN Reason: RX TO WATCH MAG LEVELS Sodium Chloride 3gm (Tablet) 3 gm PO TID [facility] Omeprazole (Omeprazole) 40 mg PO DAILY [facility] Ondansetron HCl (Zofran) 4 mg IVPUSH ONETIME ONE Stop: 09/01/17 12:13 Last Admin: 09/01/17 12:21 Dose: 4 mg Oral Electrolytes (Thermotabs) 1 each PO ONETIME ONE Stop: 09/03/17 21:01 Last Admin: 09/03/17 20:18 Dose: 1 each Oral Electrolytes (Thermotabs) 1 each PO NOW STA Stop: 09/04/17 09:30 Last Admin: 09/04/17 10:05 Dose: 1 each Oral Electrolytes (Thermotabs) 1 each PO ONETIME ONE Stop: 09/08/17 13:01 Last Admin: 09/08/17 13:31 Dose: 1 each Oral Electrolytes (Thermotabs) 1 each PO ONETIME ONE Stop: 09/09/17 14:53 Last Admin: 09/09/17 15:44 Dose: 1 each Oral Electrolytes (Thermotabs) 1 each PO ONETIME ONE Stop: 09/09/17 21:01 Last Admin: 09/09/17 22:01 Dose: 1 each Quetiapine [Seroquel (Xr] 400 Mg) 0 each PO BEDTIME [facility] Last Admin: 09/03/17 22:04 Dose: Not Given Potassium Chloride (Pharmacy To Dose - Potassium Replacement) 0 dose .XX ASDIRECTED PRN PRN Reason: RX TO WATCH K LEVELS Potassium Chloride (Klor-Con M20) 40 meq PO Q4H [facility] Stop: 09/04/17 11:31 Last Admin: 09/04/17 12:34 Dose: 40 meq Temazepam (Restoril) 15 mg PO ONETIME ONE Stop: 09/04/17 01:00 Last Admin: 09/04/17 01:22 Dose: 15 mg Trimethoprim/Sulfamethoxazole (Septra Ds) 2 tab PO Q8HR [facility] Last Admin: 09/07/17 15:55 Dose: Not Given Vancomycin HCl (Pharmacy To Dose - Vancomycin) 0 dose .XX ASDIRECTED PRN PRN Reason: RX TO DOSE VANCOMYCIN Vancomycin HCl (Vancomycin) Confirm Administered Dose 500 mg .ROUTE .STK-MED ONE Stop: 09/03/17 21:26 Last Admin: 09/03/17 21:50 Dose: 500 mg Vancomycin HCl (Vancomycin) Confirm Administered Dose 1 gm .ROUTE .STK-MED ONE Stop: 09/03/17 21:26 Last Admin: 09/03/17 21:50 Dose: 1 gm - Exam Quality Assessment: DVT Prophylaxis General: Alert, Cooperative, No Acute Distress HEENT: Pupils Equal, Pupils Reactive, EOMI, Mucous Membr. Moist/[place] Neck: Supple, Trachea Midline, No JVD Lungs: Clear to Auscultation, Normal Respiratory Effort Cardiovascular: Regular Rate, Regular Rhythm GI/Abdominal Exam: Normal Bowel Sounds, Soft, Non-Tender, No Organomegaly, No Distention, No Abnormal Bruit, No Mass, Pelvis Stable (Male) Exam: Deferred Extremities: Normal Inspection, Normal Range of Motion, Non-Tender, No Pedal Edema, Normal Capillary Refill Peripheral Pulses: 2+: Posterior Tibial (L), Posterior Tibial (R), Dorsalis Pedis (L), Dorsalis Pedis (R), 3+: Radial (L), Radial (R) Skin: Warm, Dry, Intact Neurological: No New Focal Deficit Psy/Mental Status: Alert - Problem List & Annotations (1) Acute renal injury SNOMED Code(s): 22543539 Code(s): N17.9 - ACUTE KIDNEY FAILURE, UNSPECIFIED Status: Resolved Priority: High Current Visit: Yes (2) Elevated C-reactive protein (CRP) SNOMED Code(s): 212058173377165 Code(s): R79.82 - ELEVATED C-REACTIVE PROTEIN (CRP) Status: Acute Priority: High Current Visit: Yes (3) Elevated white blood cell count SNOMED Code(s): 678974242 Code(s): D72.829 - ELEVATED WHITE BLOOD CELL COUNT, UNSPECIFIED Status: Acute Priority: High Current Visit: Yes Qualifiers: Leukocytosis type: bandemia Qualified Code(s): D72.825 - Bandemia (4) Nausea & vomiting SNOMED Code(s): 71605546 Code(s): R11.2 - NAUSEA WITH VOMITING, UNSPECIFIED Status: Resolved Priority: High Current Visit: Yes Qualifiers: Vomiting type: unspecified Vomiting Intractability: non-intractable Qualified Code(s): R11.2 - Nausea with vomiting, unspecified (5) Fever SNOMED Code(s): 362298785 Code(s): R50.9 - FEVER, UNSPECIFIED Status: Acute Priority: High Current Visit: Yes Qualifiers: Fever type: unspecified Qualified Code(s): R50.9 - Fever, unspecified - Problem List Review Problem List Initiated/Reviewed/Updated: Yes - Plan Plan:: I/P: Acute: SIRS--- Bacteremia with staph aureus (sensitive to Bactrim DS and Oxacillin; Ampicillin). -WBC 14.04-->13.2-->10K--> increasing last few days, antibiotics switched -CRP 47.1-->slowly trending down, slight increase of is 12.8 today -Lactic acid 1.2 -Fever of 102.6 on admit, afebrile last few days; N&V--? resolved thus far in hospital stay -UA, CXR, abdomen X-ray, AB/pelvis CT, influenza, strep - all negative -Blood cultures obtained; staph aureus, not MRSA. Repeat obtained 48 hours later with 1/4 still + for staph aureus. -Repeat Blood cultures from 09/08/17 show no growth after 2 day. -[employer] reports type of gastroenteritis going around [facility] homes recently-- per notes, all house mates and staff at his residence are now ill. -Given 2L of fluid in ED -Fluids as ordered -IV vancomycin and Rocephin started in ED - BC results returned as above, not MRSA- Vancomycin and zosyn DC'd-Start ampicillin 2gm Q6hr -Add Florastor -Antiemeteics -Viral panel negative, -Strep pneumonia negative, -Mycoplasma pneumonia - negative, -Strep screen - negative Mild hyponatremia--up to 136 today -He is eating and drinking better now -Thermotabs yesterday -Monitor and follow am labs Resolved Acute Kidney injury--resolved -Unsure of baseline -BUN 27, Creatinine 1.8, eGFR 43---creat 0.7 and stable -2L fluids given in ED -Fluids as ordered -Avoid nephrotoxic drugs -Monitor AM labs Mild Hypokalemia---normal/resolved today- cont to follow -Replete and monitor with daily labs -Mag WNL at 1.9 Chronic: GERD - home meds seizures - home meds, no sz activity thus far anxiety - home meds autism and mild mental retardation vitamin D deficiency - home meds acne- home meds scoliosis Pica---He is on a fluid restricted diet as he consumes excessive amounts of liquids which deplete his sodium. Plan: CM for discharge planning---plans [facility]- Repeat BC+, several bottles with SA, will change to Ampicillin 2 Gm Q 6H. PT for strengthening Home medications as indicated Routine AM labs GI Prophylaxis - home PPI DVT/PE prophylaxis: SARAH olivier Code status: Full Code; PCP: Dr. Valdovinos at [facility] here in [place]. LOS>96 hours, BC sensitivity needed; changed ATB; slow progress
[2017-09-10] MEDS: Multivitamins,Therapeutic Tab PO SCH (20:23)
[2017-09-10] MEDS: Cyclobenzaprine 10 MG Tab PO SCH (20:30)
[2017-09-10] MEDS: Cholecalciferol (Vitamin D3) 1,000 Unit Tab PO SCH (20:31)
[2017-09-10] MEDS: BENZOYL PEROXIDE TOP SCH (20:32)
[2017-09-10] MEDS: CLINDAMYCIN TOP SCH (20:32)
[2017-09-11] MEDS: Ampicillin 2 GM in Sodium Chloride 0.9% 100 ML IV SCH ×4 (02:21→22:10)
[2017-09-11] MEDS: Acetaminophen 325 MG Tab PO PRN (04:52)
[2017-09-11] MEDS: Sulfamethoxazole/Trimethoprim 800-160 MG Tab PO SCH ×3 (06:14→22:08)
[2017-09-11] MEDS: QUEtiapine 100 MG Tab PO SCH ×4 (06:15→22:07)
[2017-09-11] MEDS: Pantoprazole 40 MG Tab.CR PO SCH (06:15)
[2017-09-11] MEDS: Mupirocin Oint 22 GM Tube TOP SCH ×2 (09:41→22:10)
[2017-09-11] MEDS: Calcium Carbonate/Vitamin D3 1500 MG-200 Units Tab PO SCH ×2 (09:43→22:08)
[2017-09-11] MEDS: cloNIDine 0.1 MG Tab PO SCH ×4 (09:43→22:08)
[2017-09-11] MEDS: LORazepam 0.5 MG Tab PO SCH ×4 (09:44→22:10)
[2017-09-11] MEDS: Docusate Sodium 100 MG Cap PO SCH ×2 (09:45→22:07)
[2017-09-11] MEDS: Citalopram 20 MG Tab PO SCH (09:46)
[2017-09-11] MEDS: Ferrous Sulfate 325 MG Tab PO SCH ×2 (09:47→22:09)
[2017-09-11] MEDS: Saccharomyces Boulardii (Probiotic) 250 MG Cap PO SCH ×2 (09:47→22:08)
[2017-09-11] MEDS: Divalproex Sodium Delayed-Release 500 MG Tab.CR PO SCH ×2 (09:47→22:08)
[2017-09-11] MEDS: levETIRAcetam 500 MG Tab PO SCH ×2 (09:48→22:08)
[2017-09-11] MEDS: Metoprolol Tartrate 25 MG Tab PO SCH ×2 (09:48→22:09)
[2017-09-11] MEDS: Furosemide 20 MG Tab PO SCH (09:48)
[2017-09-11] MEDS: Lisinopril 20 MG Tab PO SCH (09:49)
[2017-09-11] MEDS: OXcarbazepine 300 MG Tab PO SCH ×2 (09:50→22:09)
[2017-09-11] MEDS: Sodium Chloride 1 GM Tab PO SCH ×3 (09:50→22:05)
[2017-09-11] MEDS: Acetaminophen 325 MG Tab PO SCH ×3 (09:51→22:06)
[2017-09-11] MEDS: Vitamin E (dl-alpha-tocopherol acetate) 400 Unit Cap PO SCH ×2 (09:51→22:06)
--- NOTE | 2017-09-11 14:14 | PCM.PN ---
- General Info Date of Service: 09/11/17 Functional Status: Reports: Pain Controlled, Tolerating Diet, Ambulating, Urinating - Review of Systems General: Reports: No Symptoms HEENT: Reports: No Symptoms Pulmonary: Reports: No Symptoms Cardiovascular: Reports: No Symptoms Gastrointestinal: Reports: No Symptoms Genitourinary: Reports: No Symptoms Musculoskeletal: Reports: No Symptoms Skin: Reports: No Symptoms Neurological: Reports: No Symptoms Psychiatric: Reports: No Symptoms - Patient Data Vitals - Most Recent: Last Vital Signs Temp 36.8 C 09/11/17 07:45 Pulse 88 09/11/17 13:15 Resp 18 09/11/17 13:15 BP 113/71 09/11/17 13:16 Pulse Ox 95 09/11/17 13:15 Weight - Most Recent: 70.216 kg I&O - Last 24 Hours: Intake & Output 09/10/17 09/11/17 09/11/17 22:59 06:59 14:59 Intake Total 1080 600 120 Balance 1080 600 120 Luís Results Last 24 Hours: Microbiology 09/08/17 05:05 Aerobic Blood Culture - Preliminary Blood NO GROWTH AFTER 3 DAYS Anaerobic Blood Culture - Preliminary NO GROWTH AFTER 3 DAYS 09/08/17 04:55 Aerobic Blood Culture - Preliminary Blood NO GROWTH AFTER 3 DAYS Anaerobic Blood Culture - Preliminary NO GROWTH AFTER 3 DAYS 09/03/17 17:20 Aerobic Blood Culture - Final Blood - Venous Staphylococcus Aureus Anaerobic Blood Culture - Final NO GROWTH AFTER 7 DAYS 09/03/17 17:28 Aerobic Blood Culture - Final Blood - Venous - Lab Draw Staphylococcus Aureus Anaerobic Blood Culture - Final NO GROWTH AFTER 7 DAYS 09/06/17 14:24 Aerobic Blood Culture - Preliminary Blood - Venous NO GROWTH AFTER 4 DAYS Anaerobic Blood Culture - Preliminary NO GROWTH AFTER 4 DAYS 09/06/17 14:15 Aerobic Blood Culture - Preliminary Blood - Venous - Lab Draw NO GROWTH AFTER 4 DAYS Anaerobic Blood Culture - Preliminary NO GROWTH AFTER 4 DAYS Med Orders - Current: Current Medications Acetaminophen (Tylenol) 650 mg PO Q4H PRN PRN Reason: Pain (Mild 1-3)/fever Last Admin: 09/11/17 04:52 Dose: 650 mg Acetaminophen (Tylenol) 650 mg PO TID [facility] Last Admin: 09/11/17 09:51 Dose: 650 mg Hydrocodone Bitart/Acetaminophen ([place] 325-5 Mg) 1 tab PO Q4H PRN PRN Reason: Pain (moderate 4-6) Last Admin: 09/07/17 15:57 Dose: 1 tab Albuterol/Ipratropium (Duoneb 3.0-0.5 Mg/3 Ml) 3 ml NEB Q4H PRN PRN Reason: Shortness Of Breath/wheezing Calcium Carbonate (Calcium Carbonate/Vitamin D 1500 Mg-200 Unit) 1 tab PO BID [facility] Last Admin: 09/11/17 09:43 Dose: 1 tab Cholecalciferol (Vitamin D3) 1,000 units PO BEDTIME [facility] Last Admin: 09/10/17 20:31 Dose: 1,000 units Citalopram Hydrobromide (Celexa) 30 mg PO DAILY [facility] Last Admin: 09/11/17 09:46 Dose: 30 mg Clonidine HCl (Catapres) 0.1 mg PO QID [facility] Last Admin: 09/11/17 13:16 Dose: 0.1 mg Cyclobenzaprine HCl (Flexeril) 10 mg PO BEDTIME [facility] Last Admin: 09/10/17 20:30 Dose: 10 mg Diphenhydramine HCl (Benadryl) 25 mg IVPUSH Q4H PRN PRN Reason: Itching Last Admin: 09/04/17 13:22 Dose: 25 mg Divalproex Sodium (Depakote) 500 mg PO BID [facility] Last Admin: 09/11/17 09:47 Dose: 500 mg Docusate Sodium (Colace) 100 mg PO BID [facility] Last Admin: 09/11/17 09:45 Dose: 100 mg Ferrous Sulfate (Ferrous Sulfate) 325 mg PO BID [facility] Last Admin: 09/11/17 09:47 Dose: 325 mg Furosemide (Lasix) 20 mg PO DAILY [facility] Last Admin: 09/11/17 09:48 Dose: 20 mg Hydralazine HCl (Apresoline) 20 mg IVPUSH Q6H PRN PRN Reason: Hypertension Ampicillin Sodium 2 gm/ Sodium (Chloride) 100 mls @ 200 mls/hr IV Q6H [facility] Last Admin: 09/11/17 10:00 Dose: 200 mls/hr Ibuprofen (Motrin) 600 mg PO Q6H PRN PRN Reason: fever Last Admin: 09/08/17 05:04 Dose: 600 mg Imipramine HCl (Imipramine Hcl) 75 mg PO BEDTIME [facility] Last Admin: 09/10/17 20:29 Dose: 75 mg Levetiracetam (Keppra) 1,500 mg PO BID [facility] Last Admin: 09/11/17 09:48 Dose: 1,500 mg Lisinopril (Prinivil) 20 mg PO DAILY [facility] Last Admin: 09/11/17 09:49 Dose: 20 mg Lorazepam (Ativan) 2 mg IVPUSH Q4H PRN PRN Reason: Seizures Lorazepam (Ativan) 0.5 mg PO QID [facility] Last Admin: 09/11/17 13:16 Dose: 0.5 mg Metoprolol Tartrate (Lopressor) 5 mg IVPUSH Q4H PRN PRN Reason: Tachycardia Metoprolol Tartrate (Lopressor) 25 mg PO Q12HR [facility] Last Admin: 09/11/17 09:48 Dose: 25 mg Multivitamins (Thera) 1 each PO BEDTIME [facility] Last Admin: 09/10/17 20:23 Dose: 1 each Mupirocin (Bactroban Oint) 0 gm TOP BID [facility] Last Admin: 09/11/17 09:41 Dose: 1 applic Ondansetron HCl (Zofran) 4 mg IVPUSH Q4H PRN PRN Reason: Nausea Last Admin: 09/04/17 18:30 Dose: 4 mg Oxcarbazepine (Trileptal) 900 mg PO BID [facility] Last Admin: 09/11/17 09:50 Dose: 900 mg Pantoprazole Sodium (Protonix) 40 mg PO DAILY@0700 [facility] Last Admin: 09/11/17 06:15 Dose: 40 mg Clinda-Benzoyl Perox (1-5% Topical) 0 each TOP BEDTIME [facility] Last Admin: 09/10/17 20:32 Dose: Not Given Sodium Chloride 1 Gm (Tab) 0 each PO TID [facility] Last Admin: 09/11/17 09:50 Dose: 3 each Quetiapine Fumarate (Seroquel) 100 mg PO TID@0700,1200,1600 [facility] Last Admin: 09/11/17 13:02 Dose: 100 mg Quetiapine Fumarate (Seroquel) 400 mg PO BEDTIME [facility] Last Admin: 09/10/17 20:33 Dose: 400 mg Saccharomyces Boulardii (Florastor) 250 mg PO BID [facility] Last Admin: 09/11/17 09:47 Dose: 250 mg Sodium Chloride (Saline Flush) 10 ml FLUSH ASDIRECTED PRN PRN Reason: Keep Vein Open Last Admin: 09/01/17 12:22 Dose: 10 ml Sodium Chloride ([place] Nasal Goldvein) 0 ml NASBOTH TID PRN PRN Reason: Congestion Trimethoprim/Sulfamethoxazole (Septra Ds) 2 tab PO Q8HR [facility] Last Admin: 09/11/17 13:01 Dose: 2 tab Vitamin E (Vitamin E) 400 units PO BID [facility] Last Admin: 09/11/17 09:51 Dose: 400 units Discontinued Medications Acetaminophen (Tylenol) 975 mg PO NOW ONE Stop: 09/01/17 12:41 Last Admin: 09/01/17 12:53 Dose: 975 mg Diatrizoate Meglum/Diatrizoate Sod (Gastrografin 37%) 90 ml PO ONETIME ONE Stop: 09/01/17 14:53 Last Admin: 09/01/17 15:37 Dose: 90 ml Divalproex Sodium (Depakote) 500 mg PO BID [facility] Hydralazine HCl (Apresoline) 10 mg IVPUSH Q6H PRN PRN Reason: Hypertension Last Admin: 09/05/17 20:52 Dose: 10 mg Sodium Chloride (Normal Saline) 1,000 mls @ 500 mls/hr IV ONETIME ONE Stop: 09/01/17 14:11 Last Admin: 09/01/17 12:20 Dose: 500 mls/hr Sodium Chloride (Normal Saline) 1,000 mls @ 500 mls/hr IV ONETIME ONE Stop: 09/01/17 16:27 Last Admin: 09/01/17 14:29 Dose: 500 mls/hr Ceftriaxone Sodium 2 gm/ (Sodium Chloride) 100 mls @ 200 mls/hr IV ONETIME ONE Stop: 09/01/17 16:26 Last Admin: 09/01/17 16:27 Dose: Not Given Vancomycin HCl 1 gm/ Sodium (Chloride) 250 mls @ 250 mls/hr IV ONETIME ONE Stop: 09/01/17 16:56 Last Admin: 09/01/17 17:11 Dose: 250 mls/hr Ceftriaxone Sodium 2 gm/ (Sodium Chloride) 100 mls @ 200 mls/hr IV ONETIME STA Stop: 09/01/17 16:39 Last Admin: 09/01/17 16:26 Dose: 200 mls/hr Sodium Chloride (Normal Saline) 1,000 mls @ 150 mls/hr IV ASDIRECTED [facility] Last Admin: 09/01/17 17:19 Dose: 150 mls/hr Ceftriaxone Sodium 2 gm/ (Sodium Chloride) 100 mls @ 200 mls/hr IV Q24H [facility] Sodium Chloride (Normal Saline) 1,000 mls @ 100 mls/hr IV ASDIRECTED [facility] Stop: 09/03/17 04:44 Last Admin: 09/02/17 01:52 Dose: 100 mls/hr Vancomycin HCl 1 gm/ Sodium (Chloride) 250 mls @ 250 mls/hr IV Q12H [facility] Last Admin: 09/02/17 04:23 Dose: 250 mls/hr Ceftriaxone Sodium 2 gm/ (Dextrose/Water) 100 mls @ 200 mls/hr IV Q24H [facility] Last Admin: 09/02/17 16:08 Dose: 200 mls/hr Vancomycin HCl 1 gm/ Sodium (Chloride) 250 mls @ 250 mls/hr IV Q8H [facility] Last Admin: 09/03/17 18:25 Dose: Not Given Piperacillin Sod/Tazobactam (Sod 4.5 gm/ Dextrose/Water) 100 mls @ 200 mls/hr IV ONETIME ONE Stop: 09/03/17 09:29 Last Admin: 09/03/17 09:13 Dose: 200 mls/hr Piperacillin Sod/Tazobactam (Sod 4.5 gm/ Dextrose/Water) 100 mls @ 25 mls/hr IV Q8H [facility] Last Admin: 09/07/17 09:24 Dose: 25 mls/hr Vancomycin HCl 1 gm/Vancomycin HCl 500 mg/ Sodium Chloride 500 mls @ 500 mls/ hr IV Q8H [facility] Last Admin: 09/03/17 18:27 Dose: Not Given Vancomycin HCl 1 gm/Vancomycin HCl 500 mg/ Sodium Chloride 500 mls @ 333.333 mls/hr IV Q8H [facility] Last Admin: 09/04/17 05:41 Dose: 333.333 mls/hr Ampicillin Sodium 2 gm/ Sodium (Chloride) 100 mls @ 200 mls/hr IV Q6H [facility] Sodium Chloride (Normal Saline) 1,000 mls @ 100 mls/hr IV ASDIRECTED [facility] Stop: 09/08/17 23:14 Last Admin: 09/08/17 18:19 Dose: Not Given Sodium Chloride (Normal Saline) 1,000 mls @ 100 mls/hr IV ASDIRECTED [facility] Stop: 09/09/17 23:29 Last Admin: 09/08/17 23:58 Dose: 100 mls/hr Magnesium Sulfate (Pharmacy To Dose - Magnesium Replacement) 0 dose .XX ASDIRECTED PRN PRN Reason: RX TO WATCH MAG LEVELS Sodium Chloride 3gm (Tablet) 3 gm PO TID [facility] Omeprazole (Omeprazole) 40 mg PO DAILY [facility] Ondansetron HCl (Zofran) 4 mg IVPUSH ONETIME ONE Stop: 09/01/17 12:13 Last Admin: 09/01/17 12:21 Dose: 4 mg Oral Electrolytes (Thermotabs) 1 each PO ONETIME ONE Stop: 09/03/17 21:01 Last Admin: 09/03/17 20:18 Dose: 1 each Oral Electrolytes (Thermotabs) 1 each PO NOW STA Stop: 09/04/17 09:30 Last Admin: 09/04/17 10:05 Dose: 1 each Oral Electrolytes (Thermotabs) 1 each PO ONETIME ONE Stop: 09/08/17 13:01 Last Admin: 09/08/17 13:31 Dose: 1 each Oral Electrolytes (Thermotabs) 1 each PO ONETIME ONE Stop: 09/09/17 14:53 Last Admin: 09/09/17 15:44 Dose: 1 each Oral Electrolytes (Thermotabs) 1 each PO ONETIME ONE Stop: 09/09/17 21:01 Last Admin: 09/09/17 22:01 Dose: 1 each Quetiapine [Seroquel (Xr] 400 Mg) 0 each PO BEDTIME [facility] Last Admin: 09/03/17 22:04 Dose: Not Given Potassium Chloride (Pharmacy To Dose - Potassium Replacement) 0 dose .XX ASDIRECTED PRN PRN Reason: RX TO WATCH K LEVELS Potassium Chloride (Klor-Con M20) 40 meq PO Q4H [facility] Stop: 09/04/17 11:31 Last Admin: 09/04/17 12:34 Dose: 40 meq Temazepam (Restoril) 15 mg PO ONETIME ONE Stop: 09/04/17 01:00 Last Admin: 09/04/17 01:22 Dose: 15 mg Trimethoprim/Sulfamethoxazole (Septra Ds) 2 tab PO Q8HR [facility] Last Admin: 09/07/17 15:55 Dose: Not Given Vancomycin HCl (Pharmacy To Dose - Vancomycin) 0 dose .XX ASDIRECTED PRN PRN Reason: RX TO DOSE VANCOMYCIN Vancomycin HCl (Vancomycin) Confirm Administered Dose 500 mg .ROUTE .STK-MED ONE Stop: 09/03/17 21:26 Last Admin: 09/03/17 21:50 Dose: 500 mg Vancomycin HCl (Vancomycin) Confirm Administered Dose 1 gm .ROUTE .STK-MED ONE Stop: 09/03/17 21:26 Last Admin: 09/03/17 21:50 Dose: 1 gm - Exam Quality Assessment: Supplemental Oxygen, DVT Prophylaxis General: Alert, Oriented, Cooperative HEENT: Pupils Equal, Pupils Reactive, EOMI Neck: Supple, Trachea Midline, No JVD Lungs: Normal Respiratory Effort Cardiovascular: Regular Rate, Regular Rhythm GI/Abdominal Exam: Normal Bowel Sounds, Soft, Non-Tender, No Organomegaly, No Distention (Male) Exam: Deferred Back Exam: Normal Inspection Extremities: Normal Inspection Skin: Warm Neurological: No New Focal Deficit Psy/Mental Status: Alert - Problem List Review Problem List Initiated/Reviewed/Updated: Yes - Plan Plan:: I/P: Acute: SIRS--- Bacteremia with staph aureus (sensitive to Bactrim DS and Oxacillin; Ampicillin). -WBC 14.04-->13.2-->10K--> increasing last few days, antibiotics switched -CRP 47.1-->slowly trending down, slight increase of is 12.8 today -Lactic acid 1.2 -Fever of 102.6 on admit, afebrile last few days; N&V--? resolved thus far in hospital stay -UA, CXR, abdomen X-ray, AB/pelvis CT, influenza, strep - all negative -Blood cultures obtained; staph aureus, not MRSA. Repeat obtained 48 hours later with 1/ still + for staph aureus. -Repeat Blood cultures from 09/08/17 show no growth after 2 day. 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 -Given 2L of fluid in ED -Fluids as ordered -IV vancomycin and Rocephin started in ED - BC results returned as above, not MRSA- Vancomycin and zosyn DC'd-Start ampicillin 2gm Q6hr -Add Florastor -Antiemeteics -Viral panel negative, -Strep pneumonia negative, -Mycoplasma pneumonia - negative, -Strep screen - negative Mild hyponatremia--up to 136 today -He is eating and drinking better now -Thermotabs yesterday -Monitor and follow am labs Resolved Acute Kidney injury--resolved -Unsure of baseline -BUN 27, Creatinine 1.8, eGFR 43---creat 0.7 and stable -2L fluids given in ED -Fluids as ordered -Avoid nephrotoxic drugs -Monitor AM labs Mild Hypokalemia---normal/resolved today- cont to follow -Replete and monitor with daily labs -Mag WNL at 1.9 Chronic: GERD - home meds seizures - home meds, no sz activity thus far anxiety - home meds autism and mild mental retardation vitamin D deficiency - home meds acne- home meds scoliosis Pica---He is on a fluid restricted diet as he consumes excessive amounts of liquids which deplete his sodium. Plan: CM for discharge planning---plans DC back to snf when ready- Repeat BC+, several bottles with SA, will change to Ampicillin 2 Gm Q 6H. PT for strengthening Home medications as indicated Routine AM labs GI Prophylaxis - home PPI DVT/PE prophylaxis: SARAH olivier Code status: Full Code; PCP: Dr. Valdovinos at [facility] here in [place]. LOS>96 hours, BC sensitivity needed; changed ATB; slow progress DC 09/12/17
[2017-09-11] MEDS: Cholecalciferol (Vitamin D3) 1,000 Unit Tab PO SCH (22:06)
[2017-09-11] MEDS: Cyclobenzaprine 10 MG Tab PO SCH (22:08)
[2017-09-11] MEDS: Multivitamins,Therapeutic Tab PO SCH (22:09)
[2017-09-11] MEDS: BENZOYL PEROXIDE TOP SCH (22:11)
[2017-09-11] MEDS: CLINDAMYCIN TOP SCH (22:11)
[2017-09-12] MEDS: Ampicillin 2 GM in Sodium Chloride 0.9% 100 ML IV SCH ×2 (03:00→08:42)
[2017-09-12] MEDS: QUEtiapine 100 MG Tab PO SCH ×2 (06:30→12:23)
[2017-09-12] MEDS: Sulfamethoxazole/Trimethoprim 800-160 MG Tab PO SCH ×2 (06:30→12:51)
[2017-09-12] MEDS: Pantoprazole 40 MG Tab.CR PO SCH (06:31)
--- NOTE | 2017-09-12 07:35 | PCM.DCSUM1 ---
Discharge Summary - Hospital Course Free Text/Narrative:: Eros Khalil is a 32 yo male who presents to our ED today with his [facility] director of housing and energy services due to weakness and possible dehydration. Customer Support Analyst reports the patient has been not acting himself and had poor oral intake. They are concerned he may be dehydrated. He is normally non-verbal although he can signal yes or no by touching different places on his face. He is normally ambulatory. Customer Support Analyst reports they have had a gastroenteritis of sorts going around [facility] and many staff have been sick as well. Per caregiver he has had some nausea and vomiting since this past Friday but no diarrhea. No recent cough or cold-like symptoms. He has had a recent fever. He does respond to questions although director of housing and energy services cautions he will often respond negatively to get people to go away. In the ED temperature was 97.3 Fahrenheit. Pulse is 87. Respirations 18. Blood pressure 92/64. Pulse ox 95%. IV was established and blood cultures were obtained. Strep was negative. Influenza screen was negative. Labs are obtained: W Caesar elevated at 14.04. Hemoglobin normal at 15.7. Hematocrit 47.5. He is macrocytic. Platelet are low at 123,000. Neutrophils are elevated at 81.9%. Sodium was good at 138. Potassium good at 4.0. Chloride 102. Carbon dioxide 26. Anion gap is on the high end of normal at 14.0. BUN is high at 27. Creatinine is high at 1.8. EGFR is 43. Glucose is good at 103. Lactic acid was found to be 1.2. Calcium 8.9. Total bilirubin 0.9. Liver enzymes looked good with AST at 30, ALT at 33, alkaline phosphatase at 74. CRP is very high at 47.1. Protein is good at 7.6. Albumin 3.4. UA is negative however it is dark yellow in color. Specific gravity is greater than or equal to 1.030. 2+ protein, trace ketones, 1+ bilirubin, and 4.0 urobilinogen are seen. He is given Tylenol and vancomycin and Rocephin are started. CT of the abdomen and pelvis was obtained and shows no acute findings. Chest x-ray shows no acute findings. He carries a history of: GERD, seizures, anxiety, autism, mild mental retardation, vitamin D deficiency, acne, scoliosis and Pica. He is on a fluid restricted diet as he consumes excessive amounts of liquids which deplete his sodium. He is non-verbal but does use signals and an iPad for communication He is subsequently admitted to the medical floor on telemetry. He is a full code. He is a patient of Dr. Schultz at [facility] in [place]. He does have cares provided by [facility] staff. - Discharge Data Discharge Date: 09/12/17 (admit date 09/01/17) Discharge Disposition: DC/Tfer to Other 70 Condition: Good - Discharge Diagnosis/Problem(s) (1) Bacteremia due to Gram-positive bacteria SNOMED Code(s): 676526530151 ICD Code: R78.81 - BACTEREMIA Status: Resolved Priority: High Current Visit: Yes Problem Details: staph aureus, not MRSA (2) Acute renal injury SNOMED Code(s): 41926791 ICD Code: N17.9 - ACUTE KIDNEY FAILURE, UNSPECIFIED Status: Resolved Priority: High Current Visit: Yes (3) Elevated C-reactive protein (CRP) SNOMED Code(s): 700881795843220 ICD Code: R79.82 - ELEVATED C-REACTIVE PROTEIN (CRP) Status: Acute Priority: High Current Visit: Yes (4) Elevated white blood cell count SNOMED Code(s): 391170750 ICD Code: D72.829 - ELEVATED WHITE BLOOD CELL COUNT, UNSPECIFIED Status: Acute Priority: High Current Visit: Yes Qualifiers: Leukocytosis type: bandemia Qualified Code(s): D72.825 - Bandemia (5) Fever SNOMED Code(s): 133821044 ICD Code: R50.9 - FEVER, UNSPECIFIED Status: Resolved Priority: High Current Visit: Yes Qualifiers: Fever type: unspecified Qualified Code(s): R50.9 - Fever, unspecified (6) Nausea & vomiting SNOMED Code(s): 35607045 ICD Code: R11.2 - NAUSEA WITH VOMITING, UNSPECIFIED Status: Resolved Priority: High Current Visit: Yes Qualifiers: Vomiting type: unspecified Vomiting Intractability: non-intractable Qualified Code(s): R11.2 - Nausea with vomiting, unspecified - Patient Summary/Data Operative Procedure(s) Performed: None Complications: None Consults: Consultations 09/01/17 18:28 Consult to Case Management [CONS] Routine PT Evaluation and Treatment [CONS] Routine Labs Pending at D/C: None Recommended Follow-up Testing/Procedures: Patient DC instructions: Follow up with PCP, Dr. Valdovinos within one week of discharge Push fluids Planned Operative Procedure(s) after DC: None Hospital Course: I/P: Acute: SIRS--- Bacteremia with staph aureus (sensitive to Bactrim DS and Oxacillin; Ampicillin). -WBC 14.04-->13.2-->10K--> increasing last few days, antibiotics switched -CRP 47.1-->slowly trending down--8.8 -Lactic acid 1.2 -Fever of 102.6 on admit, afebrile last few days; N&V--? resolved thus far in hospital stay -UA, CXR, abdomen X-ray, AB/pelvis CT, influenza, strep - all negative -Blood cultures obtained; staph aureus, not MRSA. Repeat obtained 48 hours later with 1/ still + for staph aureus. -Repeat Blood cultures from 09/08/17 show no growth after 2 day. -Customer Support Analyst reports type of gastroenteritis going around [facility] homes recently-- per notes, all house mates and staff at his residence are now ill. -Given 2L of fluid in ED -Fluids as ordered -IV vancomycin and Rocephin started in ED - BC results returned as above, not MRSA- Vancomycin and zosyn DC'd-Start ampicillin 2gm Z2da--kjab response with ampicillin -Add Florastor -Antiemeteics -Viral panel negative, -Strep pneumonia negative, -Mycoplasma pneumonia - negative, -Strep screen - negative Mild hyponatremia--up to 136 today--resolved -He is eating and drinking better now -Thermotabs yesterday -Monitor and follow am labs Resolved Acute Kidney injury--resolved -Unsure of baseline -BUN 27, Creatinine 1.8, eGFR 43---creat 0.7 and stable -2L fluids given in ED -Fluids as ordered -Avoid nephrotoxic drugs -Monitor AM labs Mild Hypokalemia---normal/resolved today- cont to follow -Replete and monitor with daily labs -Mag WNL at 1.9 Chronic: GERD - home meds seizures - home meds, no sz activity thus far anxiety - home meds autism and mild mental retardation vitamin D deficiency - home meds acne- home meds scoliosis Pica---He is on a fluid restricted diet as he consumes excessive amounts of liquids which deplete his sodium. Plan: CM for discharge planning---plans DC back to care home when ready--DC today Repeat BC+, several bottles with SA, will change to Ampicillin 2 Gm Q 6H--again good response. PT for strengthening--ambulating in hallways Home medications as indicated Routine AM labs GI Prophylaxis - home PPI DVT/PE prophylaxis: SARAH olivier Code status: Full Code; PCP: Dr. Valdovinos at [facility] here in [place]. LOS>96 hours, BC sensitivity needed; changed ATB; slow progress DC 09/12/17 - Patient Instructions Diet: Usual Diet as Tolerated, Drink 8-10+ Glasses/Day Activity: As Tolerated Driving: Do Not Drive Showering/Bathing: May Shower Notify Provider of: Fever, Increased Pain, Nausea and/or Vomiting - Discharge Plan Prescriptions/Med Rec: Metoprolol Tartrate [Lopressor] 25 mg PO Q12HR #60 tablet Ampicillin [Principen] 500 mg PO Q6H #40 cap Docusate Sodium [Colace] 100 mg PO BID #60 cap Saccharomyces Boulardii [Florastor] 250 mg PO BID #60 cap Home Medications: Home Meds Acetaminophen [Mapap] 1,000 mg PO Q4H PRN 09/01/17 [History] Calcium Carbonate/Vitamin D3 [Calcium 600 + Vit D Tablet] 1 tab PO BID 09/01/17 [History] Cholecalciferol (Vitamin D3) [Vitamin D3] 1,000 units PO BEDTIME 09/01/17 [ History] Citalopram [Citalopram HBr] 30 mg PO DAILY 09/01/17 [History] Clindamycin Phos/Benzoyl Perox [Clinda-Benzoyl Perox 1-5% Pump] 1 applic TOP BEDTIME 09/01/17 [History] Cyclobenzaprine [Flexeril] 10 mg PO BEDTIME 09/01/17 [History] Ferrous Sulfate [Iron] 325 mg PO BID 09/01/17 [History] Furosemide 20 mg PO DAILY 09/01/17 [History] Ibuprofen 600 mg PO Q6H PRN 09/01/17 [History] Imipramine HCl [Imipramine] 75 mg PO BEDTIME 09/01/17 [History] LORazepam [Ativan] 0.5 mg PO QID 09/01/17 [History] Lisinopril 20 mg PO DAILY 09/01/17 [History] Multivitamin [Multi-Vitamin Daily] 1 cap PO BEDTIME 09/01/17 [History] Mupirocin Oint [Bactroban Nasal Oint] 1 applic NASBOTH BID 09/01/17 [History] OXcarbazepine [Trileptal] 900 mg PO BID 09/01/17 [History] Omeprazole 40 mg PO DAILY 09/01/17 [History] QUEtiapine [SEROquel] 100 mg PO TID 09/01/17 [History] Sodium Chloride 3 gm PO TID 09/01/17 [History] Sodium Chloride [[place]] 1 spray NASBOTH TID PRN 09/01/17 [History] Vitamin E 400 units PO BID 09/01/17 [History] cloNIDine [Catapres] 0.1 mg PO QID 09/01/17 [History] levETIRAcetam [Keppra] 500 mg PO BID 09/01/17 [History] levETIRAcetam [Levetiracetam] 1,000 mg PO BID 09/01/17 [History] Divalproex Sodium [Depakote] 500 mg PO BID 09/02/17 [History] QUEtiapine [SEROquel] 400 mg PO BEDTIME 09/04/17 [History] Ampicillin [[place]] 500 mg PO Q6H #40 cap 09/12/17 [Rx] Docusate Sodium [Colace] 100 mg PO BID #60 cap 09/12/17 [Rx] Metoprolol Tartrate [Lopressor] 25 mg PO Q12HR #60 tablet 09/12/17 [Rx] Saccharomyces Boulardii [Florastor] 250 mg PO BID #60 cap 09/12/17 [Rx] Patient Handouts: Sepsis, Adult, Dehydration, Adult, [id number], Bacteremia Forms: ED Department Discharge Referrals: Adebayo Valdovinos MD [Primary Care Provider] - - Discharge Summary/Plan Comment DC Time >30 min.: Yes (45 min) - General Info Date of Service: 09/12/17 Admission Dx/Problem (Free Text: Admission Diagnosis/Problem Admission Diagnosis/Problem Bacteremia Doing well; afebrile for >48 hours. Ambulating, eating, voiding. Plans for DC back to care home today. Functional Status: Reports: Pain Controlled, Tolerating Diet, Ambulating, Urinating - Review of Systems General: Denies: Fever, Weakness HEENT: Reports: No Symptoms Pulmonary: Reports: No Symptoms. Denies: Cough Cardiovascular: Reports: No Symptoms. Denies: Chest Pain Gastrointestinal: Reports: No Symptoms. Denies: Abdominal Pain, Diarrhea, Vomiting Neurological: Reports: No Symptoms, Other (baseline mental status) - Patient Data Vitals - Most Recent: Last Vital Signs Temp 98.1 F 09/12/17 04:31 Pulse 82 09/12/17 04:31 Resp 20 09/12/17 04:31 BP 112/68 09/12/17 04:31 Pulse Ox 94 L 09/12/17 04:31 Weight - Most Recent: 154 lb 12.8 oz I&O - Last 24 hours: Intake & Output 09/11/17 09/12/17 09/12/17 22:59 06:59 14:59 Intake Total 600 500 Balance 600 500 CECELIA Results - Last 24 hrs: Microbiology 09/08/17 05:05 Aerobic Blood Culture - Preliminary Blood NO GROWTH AFTER 4 DAYS Anaerobic Blood Culture - Preliminary NO GROWTH AFTER 4 DAYS 09/08/17 04:55 Aerobic Blood Culture - Preliminary Blood NO GROWTH AFTER 4 DAYS Anaerobic Blood Culture - Preliminary NO GROWTH AFTER 4 DAYS 09/06/17 14:24 Aerobic Blood Culture - Preliminary Blood - Venous NO GROWTH AFTER 5 DAYS Anaerobic Blood Culture - Preliminary NO GROWTH AFTER 5 DAYS 09/06/17 14:15 Aerobic Blood Culture - Preliminary Blood - Venous - Lab Draw NO GROWTH AFTER 5 DAYS Anaerobic Blood Culture - Preliminary NO GROWTH AFTER 5 DAYS Med Orders - Current: Current Medications Acetaminophen (Tylenol) 650 mg PO Q4H PRN PRN Reason: Pain (Mild 1-3)/fever Last Admin: 09/11/17 04:52 Dose: 650 mg Acetaminophen (Tylenol) 650 mg PO TID [facility] Last Admin: 09/11/17 22:06 Dose: 650 mg Hydrocodone Bitart/Acetaminophen ([place] 325-5 Mg) 1 tab PO Q4H PRN PRN Reason: Pain (moderate 4-6) Last Admin: 09/07/17 15:57 Dose: 1 tab Albuterol/Ipratropium (Duoneb 3.0-0.5 Mg/3 Ml) 3 ml NEB Q4H PRN PRN Reason: Shortness Of Breath/wheezing Calcium Carbonate (Calcium Carbonate/Vitamin D 1500 Mg-200 Unit) 1 tab PO BID [facility] Last Admin: 09/11/17 22:08 Dose: 1 tab Cholecalciferol (Vitamin D3) 1,000 units PO BEDTIME [facility] Last Admin: 09/11/17 22:06 Dose: 1,000 units Citalopram Hydrobromide (Celexa) 30 mg PO DAILY [facility] Last Admin: 09/11/17 09:46 Dose: 30 mg Clonidine HCl (Catapres) 0.1 mg PO QID [facility] Last Admin: 09/11/17 22:08 Dose: 0.1 mg Cyclobenzaprine HCl (Flexeril) 10 mg PO BEDTIME [facility] Last Admin: 09/11/17 22:08 Dose: 10 mg Diphenhydramine HCl (Benadryl) 25 mg IVPUSH Q4H PRN PRN Reason: Itching Last Admin: 09/04/17 13:22 Dose: 25 mg Divalproex Sodium (Depakote) 500 mg PO BID [facility] Last Admin: 09/11/17 22:08 Dose: 500 mg Docusate Sodium (Colace) 100 mg PO BID [facility] Last Admin: 09/11/17 22:07 Dose: 100 mg Ferrous Sulfate (Ferrous Sulfate) 325 mg PO BID [facility] Last Admin: 09/11/17 22:09 Dose: 325 mg Furosemide (Lasix) 20 mg PO DAILY [facility] Last Admin: 09/11/17 09:48 Dose: 20 mg Hydralazine HCl (Apresoline) 20 mg IVPUSH Q6H PRN PRN Reason: Hypertension Ampicillin Sodium 2 gm/ Sodium (Chloride) 100 mls @ 200 mls/hr IV Q6H [facility] Last Admin: 09/12/17 03:00 Dose: 200 mls/hr Ibuprofen (Motrin) 600 mg PO Q6H PRN PRN Reason: fever Last Admin: 09/08/17 05:04 Dose: 600 mg Imipramine HCl (Imipramine Hcl) 75 mg PO BEDTIME [facility] Last Admin: 09/11/17 22:06 Dose: 75 mg Levetiracetam (Keppra) 1,500 mg PO BID [facility] Last Admin: 09/11/17 22:08 Dose: 1,500 mg Lisinopril (Prinivil) 20 mg PO DAILY [facility] Last Admin: 09/11/17 09:49 Dose: 20 mg Lorazepam (Ativan) 2 mg IVPUSH Q4H PRN PRN Reason: Seizures Lorazepam (Ativan) 0.5 mg PO QID [facility] Last Admin: 09/11/17 22:10 Dose: 0.5 mg Metoprolol Tartrate (Lopressor) 5 mg IVPUSH Q4H PRN PRN Reason: Tachycardia Metoprolol Tartrate (Lopressor) 25 mg PO Q12HR [facility] Last Admin: 09/11/17 22:09 Dose: 25 mg Multivitamins (Thera) 1 each PO BEDTIME [facility] Last Admin: 09/11/17 22:09 Dose: 1 each Mupirocin (Bactroban Oint) 0 gm TOP BID [facility] Last Admin: 09/11/17 22:10 Dose: 1 applic Ondansetron HCl (Zofran) 4 mg IVPUSH Q4H PRN PRN Reason: Nausea Last Admin: 09/04/17 18:30 Dose: 4 mg Oxcarbazepine (Trileptal) 900 mg PO BID [facility] Last Admin: 09/11/17 22:09 Dose: 900 mg Pantoprazole Sodium (Protonix) 40 mg PO DAILY@0700 [facility] Last Admin: 09/12/17 06:31 Dose: 40 mg Clinda-Benzoyl Perox (1-5% Topical) 0 each TOP BEDTIME [facility] Last Admin: 09/11/17 22:11 Dose: Not Given Sodium Chloride 1 Gm (Tab) 0 each PO TID [facility] Last Admin: 09/11/17 22:05 Dose: 3 each Quetiapine Fumarate (Seroquel) 100 mg PO TID@0700,1200,1600 [facility] Last Admin: 09/12/17 06:30 Dose: 100 mg Quetiapine Fumarate (Seroquel) 400 mg PO BEDTIME [facility] Last Admin: 09/11/17 22:07 Dose: 400 mg Saccharomyces Boulardii (Florastor) 250 mg PO BID [facility] Last Admin: 09/11/17 22:08 Dose: 250 mg Sodium Chloride (Saline Flush) 10 ml FLUSH ASDIRECTED PRN PRN Reason: Keep Vein Open Last Admin: 09/01/17 12:22 Dose: 10 ml Sodium Chloride ([place] Nasal [place]) 0 ml NASBOTH TID PRN PRN Reason: Congestion Trimethoprim/Sulfamethoxazole (Septra Ds) 2 tab PO Q8HR [facility] Last Admin: 09/12/17 06:30 Dose: 2 tab Vitamin E (Vitamin E) 400 units PO BID [facility] Last Admin: 09/11/17 22:06 Dose: 400 units Discontinued Medications Acetaminophen (Tylenol) 975 mg PO NOW ONE Stop: 09/01/17 12:41 Last Admin: 09/01/17 12:53 Dose: 975 mg Diatrizoate Meglum/Diatrizoate Sod (Gastrografin 37%) 90 ml PO ONETIME ONE Stop: 09/01/17 14:53 Last Admin: 09/01/17 15:37 Dose: 90 ml Divalproex Sodium (Depakote) 500 mg PO BID [facility] Hydralazine HCl (Apresoline) 10 mg IVPUSH Q6H PRN PRN Reason: Hypertension Last Admin: 09/05/17 20:52 Dose: 10 mg Sodium Chloride (Normal Saline) 1,000 mls @ 500 mls/hr IV ONETIME ONE Stop: 09/01/17 14:11 Last Admin: 09/01/17 12:20 Dose: 500 mls/hr Sodium Chloride (Normal Saline) 1,000 mls @ 500 mls/hr IV ONETIME ONE Stop: 09/01/17 16:27 Last Admin: 09/01/17 14:29 Dose: 500 mls/hr Ceftriaxone Sodium 2 gm/ (Sodium Chloride) 100 mls @ 200 mls/hr IV ONETIME ONE Stop: 09/01/17 16:26 Last Admin: 09/01/17 16:27 Dose: Not Given Vancomycin HCl 1 gm/ Sodium (Chloride) 250 mls @ 250 mls/hr IV ONETIME ONE Stop: 09/01/17 16:56 Last Admin: 09/01/17 17:11 Dose: 250 mls/hr Ceftriaxone Sodium 2 gm/ (Sodium Chloride) 100 mls @ 200 mls/hr IV ONETIME STA Stop: 09/01/17 16:39 Last Admin: 09/01/17 16:26 Dose: 200 mls/hr Sodium Chloride (Normal Saline) 1,000 mls @ 150 mls/hr IV ASDIRECTED [facility] Last Admin: 09/01/17 17:19 Dose: 150 mls/hr Ceftriaxone Sodium 2 gm/ (Sodium Chloride) 100 mls @ 200 mls/hr IV Q24H [facility] Sodium Chloride (Normal Saline) 1,000 mls @ 100 mls/hr IV ASDIRECTED [facility] Stop: 09/03/17 04:44 Last Admin: 09/02/17 01:52 Dose: 100 mls/hr Vancomycin HCl 1 gm/ Sodium (Chloride) 250 mls @ 250 mls/hr IV Q12H [facility] Last Admin: 09/02/17 04:23 Dose: 250 mls/hr Ceftriaxone Sodium 2 gm/ (Dextrose/Water) 100 mls @ 200 mls/hr IV Q24H [facility] Last Admin: 09/02/17 16:08 Dose: 200 mls/hr Vancomycin HCl 1 gm/ Sodium (Chloride) 250 mls @ 250 mls/hr IV Q8H [facility] Last Admin: 09/03/17 18:25 Dose: Not Given Piperacillin Sod/Tazobactam (Sod 4.5 gm/ Dextrose/Water) 100 mls @ 200 mls/hr IV ONETIME ONE Stop: 09/03/17 09:29 Last Admin: 09/03/17 09:13 Dose: 200 mls/hr Piperacillin Sod/Tazobactam (Sod 4.5 gm/ Dextrose/Water) 100 mls @ 25 mls/hr IV Q8H [facility] Last Admin: 09/07/17 09:24 Dose: 25 mls/hr Vancomycin HCl 1 gm/Vancomycin HCl 500 mg/ Sodium Chloride 500 mls @ 500 mls/ hr IV Q8H [facility] Last Admin: 09/03/17 18:27 Dose: Not Given Vancomycin HCl 1 gm/Vancomycin HCl 500 mg/ Sodium Chloride 500 mls @ 333.333 mls/hr IV Q8H [facility] Last Admin: 09/04/17 05:41 Dose: 333.333 mls/hr Ampicillin Sodium 2 gm/ Sodium (Chloride) 100 mls @ 200 mls/hr IV Q6H [facility] Sodium Chloride (Normal Saline) 1,000 mls @ 100 mls/hr IV ASDIRECTED [facility] Stop: 09/08/17 23:14 Last Admin: 09/08/17 18:19 Dose: Not Given Sodium Chloride (Normal Saline) 1,000 mls @ 100 mls/hr IV ASDIRECTED [facility] Stop: 09/09/17 23:29 Last Admin: 09/08/17 23:58 Dose: 100 mls/hr Magnesium Sulfate (Pharmacy To Dose - Magnesium Replacement) 0 dose .XX ASDIRECTED PRN PRN Reason: RX TO WATCH MAG LEVELS Sodium Chloride 3gm (Tablet) 3 gm PO TID [facility] Omeprazole (Omeprazole) 40 mg PO DAILY [facility] Ondansetron HCl (Zofran) 4 mg IVPUSH ONETIME ONE Stop: 09/01/17 12:13 Last Admin: 09/01/17 12:21 Dose: 4 mg Oral Electrolytes (Thermotabs) 1 each PO ONETIME ONE Stop: 09/03/17 21:01 Last Admin: 09/03/17 20:18 Dose: 1 each Oral Electrolytes (Thermotabs) 1 each PO NOW STA Stop: 09/04/17 09:30 Last Admin: 09/04/17 10:05 Dose: 1 each Oral Electrolytes (Thermotabs) 1 each PO ONETIME ONE Stop: 09/08/17 13:01 Last Admin: 09/08/17 13:31 Dose: 1 each Oral Electrolytes (Thermotabs) 1 each PO ONETIME ONE Stop: 09/09/17 14:53 Last Admin: 09/09/17 15:44 Dose: 1 each Oral Electrolytes (Thermotabs) 1 each PO ONETIME ONE Stop: 09/09/17 21:01 Last Admin: 09/09/17 22:01 Dose: 1 each Quetiapine [Seroquel (Xr] 400 Mg) 0 each PO BEDTIME [facility] Last Admin: 09/03/17 22:04 Dose: Not Given Potassium Chloride (Pharmacy To Dose - Potassium Replacement) 0 dose .XX ASDIRECTED PRN PRN Reason: RX TO WATCH K LEVELS Potassium Chloride (Klor-Con M20) 40 meq PO Q4H [facility] Stop: 09/04/17 11:31 Last Admin: 09/04/17 12:34 Dose: 40 meq Temazepam (Restoril) 15 mg PO ONETIME ONE Stop: 09/04/17 01:00 Last Admin: 09/04/17 01:22 Dose: 15 mg Trimethoprim/Sulfamethoxazole (Septra Ds) 2 tab PO Q8HR [facility] Last Admin: 09/07/17 15:55 Dose: Not Given Vancomycin HCl (Pharmacy To Dose - Vancomycin) 0 dose .XX ASDIRECTED PRN PRN Reason: RX TO DOSE VANCOMYCIN Vancomycin HCl (Vancomycin) Confirm Administered Dose 500 mg .ROUTE .STK-MED ONE Stop: 09/03/17 21:26 Last Admin: 09/03/17 21:50 Dose: 500 mg Vancomycin HCl (Vancomycin) Confirm Administered Dose 1 gm .ROUTE .STK-MED ONE Stop: 09/03/17 21:26 Last Admin: 09/03/17 21:50 Dose: 1 gm - Exam Quality Assessment: Reports: DVT Prophylaxis General: Reports: Alert, Cooperative, No Acute Distress HEENT: Reports: Pupils Equal, EOMI, Mucous Membr. Moist/[place] Neck: Reports: Supple Lungs: Reports: Normal Respiratory Effort, Decreased Breath Sounds, Other (does not follow commands for deep breaths, poor insp effort this morning) Cardiovascular: Reports: Regular Rate, Regular Rhythm GI/Abdominal Exam: Normal Bowel Sounds, Soft, Non-Tender (Male) Exam: Deferred Rectal (Males) Exam: Deferred Extremities: Normal Inspection, No Pedal Edema, Normal Capillary Refill Neurological: Reports: No New Focal Deficit, Other (baseline mental status; nonverbal communication of yes/no answers to nose or chin) Psy/Mental Status: Reports: Alert, Normal Affect, Normal Mood *Q Meaningful Use (DIS) - VTE *Q VTE Criteria *Q: - Stroke *Q Stroke Criteria *Q: - AMI *Q AMI Criteria *Q:
[2017-09-12] MEDS: Vitamin E (dl-alpha-tocopherol acetate) 400 Unit Cap PO SCH (08:46)
[2017-09-12] MEDS: Saccharomyces Boulardii (Probiotic) 250 MG Cap PO SCH (08:46)
[2017-09-12] MEDS: Lisinopril 20 MG Tab PO SCH (08:46)
[2017-09-12] MEDS: Docusate Sodium 100 MG Cap PO SCH (08:46)
[2017-09-12] MEDS: Calcium Carbonate/Vitamin D3 1500 MG-200 Units Tab PO SCH (08:47)
[2017-09-12] MEDS: Citalopram 20 MG Tab PO SCH (08:47)
[2017-09-12] MEDS: levETIRAcetam 500 MG Tab PO SCH (08:47)
[2017-09-12] MEDS: Acetaminophen 325 MG Tab PO SCH (08:47)
[2017-09-12] MEDS: Ferrous Sulfate 325 MG Tab PO SCH (08:48)
[2017-09-12] MEDS: Metoprolol Tartrate 25 MG Tab PO SCH (08:48)
[2017-09-12] MEDS: Furosemide 20 MG Tab PO SCH (08:48)
[2017-09-12] MEDS: cloNIDine 0.1 MG Tab PO SCH ×2 (08:48→12:23)
[2017-09-12] MEDS: LORazepam 0.5 MG Tab PO SCH ×2 (08:49→12:23)
[2017-09-12] MEDS: Mupirocin Oint 22 GM Tube TOP SCH (08:50)
[2017-09-12] MEDS: Divalproex Sodium Delayed-Release 500 MG Tab.CR PO SCH (08:57)
[2017-09-12] MEDS: Sodium Chloride 1 GM Tab PO SCH (08:59)
[2017-09-12] MEDS: OXcarbazepine 300 MG Tab PO SCH (08:59)
== END 2017-09-12 13:05 | disposition other institution (70) | DRG 872 ==
LOC: JD.ED 11:17 → JD.MS 17:19
PROVIDERS: ADMIT Internal Medicine; ATTEND Internal Medicine
DX: R78.81 Bacteremia (principal); N17.9 Acute kidney failure, unspecified; F84.0 Autistic disorder; E87.1 Hypo-osmolality and hyponatremia; D72.825 Bandemia; B95.61 Methicillin susceptible Staphylococcus aureus infection as the cause of diseases classified elsewhere; E87.6 Hypokalemia; R41.0 Disorientation, unspecified; R79.82 Elevated C-reactive protein (CRP); R11.2 Nausea with vomiting, unspecified; K21.9 Gastro-esophageal reflux disease without esophagitis; G40.909 Epilepsy, unspecified, not intractable, without status epilepticus; F41.9 Anxiety disorder, unspecified; F70 Mild intellectual disabilities; E55.9 Vitamin D deficiency, unspecified; L70.9 Acne, unspecified; M41.9 Scoliosis, unspecified; F50.89 Other specified eating disorder; Z79.899 Other long term (current) drug therapy
CPT/HCPCS: 36415; 71045; 74018; 74176; 80053; 81001; 83605; 85025; 86140; 86738; 87040 ×2; 87077; 87081; 87186; 87430; 87804 ×2; 96361; 96365; 96368; 96375; 99285; A9270; J0696; J2405; J3370; J7030; J7040 ×2; J7050 ×2; Q9963; 80048; 80202; 83735; 87486; 87581; 87633; 87641; 87798; 87899; 97161-GP; J0290; J0360; J1200; J2543; J7060

== ENCOUNTER 2020-10-27 18:55 | Emergency (ER) | payer MEDICAID ==
--- NOTE | 2020-10-27 20:41 | CT ---
Head CT Technique: Multiple axial sections through the brain were obtained. Intravenous contrast was not utilized. Reconstructed coronal and sagittal images were obtained. Comparison: No prior intracranial imaging is available Findings: Ventricles along with basal cisterns and sulci over the convexities are within normal limits for the patient's age. No abnormal parenchymal densities are seen. There is calcification seen off the interhemispheric falx which is incidental. No evidence of intracranial hemorrhage. No midline shift or mass-effect is seen. Bone window settings were reviewed. Visualized mastoid sinuses and paranasal sinuses show nothing acute. Several calcifications are seen lateral to the temporal bone within the superficial soft tissues believed to be old. No acute calvarial finding is appreciated. Impression: 1. Findings believed to be incidental as noted above. 2. Nothing acute is appreciated on noncontrast head CT study. Diagnostic code #1
--- NOTE | 2020-10-27 20:52 | CT ---
CT cervical spine Technique: Multiple axial sections were obtained from above C1 inferiorly to the bottom of T5. Reconstructed coronal and sagittal images were obtained. Comparison: No prior cervical spine imaging. 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 There are compression deformities seen within C3, C4, C5, C6 and C7. Slight compression deformity is also noted within T1. Disc space narrowing is seen at C3-4 through C7-T1. There are spinal fixation rods within the thoracic spine. No acute fracture is seen. No central canal stenosis is noted. Imaging plane was not sufficient for good evaluation of neural foraminal stenosis. Impression: 1. Multiple compression deformities and disc space narrowing causing kyphosis and scoliosis. 2. No acute fracture or subluxation is appreciated. Diagnostic code #2
--- NOTE | 2020-10-27 22:14 | EDM.PDOC ---
ED HPI GENERAL MEDICAL PROBLEM - General Chief Complaint: General Stated Complaint: [facility] Time Seen by Provider: 10/27/20 19:00 Source of Information: Reports: Other (Caregivers from assisted living) History Limitations: Reports: Other (Patient with chronic encephalopathy, autism) - History of Present Illness INITIAL COMMENTS - FREE TEXT/NARRATIVE: The patient was brought in by ambulance from his intermediate after an episode in which she was walking apparently lost his footing went down and then was thought to have possibly had a seizure because some twitching of his limbs was noted. No significant trauma was noted. Patient was a bit lethargic and was thought to be seen with a partial seizure followed by a postictal state. The patient has a lifetime history of autism. He is on antipsychotics. He does not speak. Leading up to this episode there had been no fever respiratory symptoms urinary symptoms or any change in neurological status or any other symptom thought to represent an acute illness or condition. Patient has never smoked cigarettes. chest Pain Score (Numeric/FACES): 8 - Related Data Allergies Allergy/AdvReac Type Severity Reaction Status Date / Time No Known Allergies Allergy Verified 09/01/17 20:23 Home Meds: Home Meds Acetaminophen [Mapap] 1,000 mg PO Q4H PRN 09/01/17 [History] Calcium Carbonate/Vitamin D3 [Calcium 600 + Vit D Tablet] 1 tab PO BID 09/01/17 [History] Cholecalciferol (Vitamin D3) [Vitamin D3] 1,000 units PO BEDTIME 09/01/17 [History] Citalopram [Citalopram HBr] 30 mg PO DAILY 09/01/17 [History] Clindamycin Phos/Benzoyl Perox [Clinda-Benzoyl Perox 1-5% Pump] 1 applic TOP BEDTIME 09/01/17 [History] Cyclobenzaprine [Flexeril] 10 mg PO BEDTIME 09/01/17 [History] Ferrous Sulfate [Iron] 325 mg PO BID 09/01/17 [History] Furosemide 20 mg PO DAILY 09/01/17 [History] Ibuprofen 600 mg PO Q6H PRN 09/01/17 [History] Imipramine HCl [Imipramine] 75 mg PO BEDTIME 09/01/17 [History] LORazepam [Ativan] 0.5 mg PO QID 09/01/17 [History] Lisinopril 20 mg PO DAILY 09/01/17 [History] Multivitamin [Multi-Vitamin Daily] 1 cap PO BEDTIME 09/01/17 [History] Mupirocin Oint [Bactroban Nasal Oint] 1 applic NASBOTH BID 09/01/17 [History] OXcarbazepine [Trileptal] 900 mg PO BID 09/01/17 [History] Omeprazole 40 mg PO DAILY 09/01/17 [History] QUEtiapine [SEROquel] 100 mg PO TID 09/01/17 [History] Sodium Chloride 3 gm PO TID 09/01/17 [History] Sodium Chloride [Deep Sea] 1 spray NASBOTH TID PRN 09/01/17 [History] Vitamin E 400 units PO BID 09/01/17 [History] cloNIDine [Catapres] 0.1 mg PO QID 09/01/17 [History] levETIRAcetam [Keppra] 500 mg PO BID 09/01/17 [History] levETIRAcetam [Levetiracetam] 1,000 mg PO BID 09/01/17 [History] Divalproex Sodium [Depakote] 500 mg PO BID 09/02/17 [History] QUEtiapine [SEROquel] 400 mg PO BEDTIME 09/04/17 [History] Ampicillin [Principen] 500 mg PO Q6H #40 cap 09/12/17 [Rx] Docusate Sodium [Colace] 100 mg PO BID #60 cap 09/12/17 [Rx] Metoprolol Tartrate [Lopressor] 25 mg PO Q12HR #60 tablet 09/12/17 [Rx] Saccharomyces Boulardii [Florastor] 250 mg PO BID #60 cap 09/12/17 [Rx] Past Medical History HEENT History: Reports: None Cardiovascular History: Reports: None Respiratory History: Reports: None Gastrointestinal History: Reports: GERD, Other (See Below) Other Gastrointestinal History: Is on a fluid restrictive diet as he consumes excessive amounts of liquid which depletes his sodium. Genitourinary History: Reports: None Musculoskeletal History: Reports: Other (See Below) Other Musculoskeletal History: wears AFO's to bilateral feet/legs, previous hip dislocations Neurological History: Reports: Seizure Psychiatric History: Reports: Anxiety, Autism, Other (See Below) Other Psychiatric History: mild mental retardation Endocrine/Metabolic History: Reports: Vitamin D Deficiency Hematologic History: Reports: None Immunologic History: Reports: None Oncologic (Cancer) History: Reports: None Dermatologic History: Reports: Other (See Below) Other Dermatologic History: acne - Past Surgical History HEENT Surgical History: Reports: None Cardiovascular Surgical History: Reports: None Respiratory Surgical History: Reports: None GI Surgical History: Reports: None Male Surgical History: Reports: None Endocrine Surgical History: Reports: None Neurological Surgical History: Reports: Scoliosis Other Neurological Surgeries/Procedures: river placed to back due to scoliosis Musculoskeletal Surgical History: Reports: Other (See Below) Other Musculoskeletal Surgeries/Procedures:: hip surgery Oncologic Surgical History: Reports: None Dermatological Surgical History: Reports: None Social & Family History - Family History Family Medical History: No Pertinent Family History - Tobacco Use Tobacco Use Status *Q: Never Tobacco User - Caffeine Use Caffeine Use: Reports: Soda - Recreational Drug Use Recreational Drug Use: No ED ROS GENERAL - Review of Systems Review Of Systems: Comprehensive ROS is negative, except as noted in HPI. ED EXAM, GENERAL - Physical Exam Exam: See Below Free Text/Narrative:: On exam the patient is in no distress. Initially there was some apparent obtunded state to at least a moderate extent. Later he had return to baseline per caregivers at bedside. Head normocephalic atraumatic. EOMI. No evidence of trauma to tongue or in the oral cavity. Neck is supple without jugular venous distention patient is comfortable lying flat on the bed. Lungs are notable for diminished breath sounds but poor cooperation and shallow respirations. Grossly clear however. Heart is regular. Abdomen is soft and nontender. There is no edema of the limbs cyanosis or clubbing of the digits. Neurologically the patient has noted is nonverbal. There is no gross focality. #1 Interpretation EKG Date: 10/27/20 Time: 19:15 Rhythm: NSR Rate (Beats/Min): 75 [place]: Normal P-Wave: Present QRS: Normal ST-T: Normal QT: Normal EKG Interpretation Comments: No acute ischemic change. Course - Vital Signs Text/Narrative:: The patient has been evaluated and impression would be that he is probably had a partial seizure, but was postictal for a while and has recovered to baseline state. There are no salient abnormals in labs or imaging. Caregivers are advised to call the neurologist taking care of the patient's neurological condition and inform that there has probably been a limited breakthrough seizure. Seizure medications may need to be adjusted. Precautions for return to ER. Last Recorded V/S: Last Vital Signs Temp 36.5 C 10/27/20 19:01 Pulse 72 10/27/20 19:01 Resp 20 10/27/20 19:01 BP 139/91 H 10/27/20 19:01 Pulse Ox 99 10/27/20 19:01 - Orders/Labs/Meds Orders: Active Orders 24 hr Category Date Time Status EKG Documentation Completion [RC] STAT Care 10/27/20 19:07 Active Chest 1V Frontal [CR] Stat Exams 10/27/20 19:07 Ordered Labs: Laboratory Tests 10/27/20 10/27/20 10/27/20 Range/Units 19:59 19:59 20:15 WBC 4.76 (4.23-9.07) K/mm3 RBC 4.47 L (4.63-6.08) M/mm3 Hgb 13.9 D (13.7-17.5) gm/dl Hct 41.0 (40.1-51.0) % MCV 91.7 D (79.0-92.2) fl MCH 31.1 (25.7-32.2) pg MCHC 33.9 (32.2-35.5) g/dl RDW Std Deviation 38.5 (35.1-43.9) fL Plt Count 132 L D (163-337) K/mm3 MPV 10.9 (9.4-12.3) fl Neutrophils % (Manual) 57 (40-60) % Band Neutrophils % 1 (0-10) % Lymphocytes % (Manual) 26 (20-40) % Atypical Lymphs % 4 % Monocytes % (Manual) 4 (2-10) % Eosinophils % (Manual) 3 (0.8-7.0) % Basophils % (Manual) 5 H (0.2-1.2) Platelet Estimate Decreased Plt Morphology Comment See note RBC Morph Comment Normal Sodium 137 (136-145) mEq/L Potassium 3.4 L D (3.5-5.1) mEq/L Chloride 102 (98-107) mEq/L Carbon Dioxide 26 (21-32) mEq/L Anion Gap 12.4 (5-15) BUN 12 (7-18) mg/dL Creatinine 0.8 (0.7-1.3) mg/dL Est Cr Clr Drug Dosing 118.20 mL/min Estimated GFR (MDRD) > 60 (>60) mL/min BUN/Creatinine Ratio 15.0 (14-18) Glucose 97 (74-106) mg/dL Calcium 8.5 (8.5-10.1) mg/dL Magnesium 1.9 (1.8-2.4) mg/dl Total Bilirubin 0.2 (0.2-1.0) mg/dL AST 19 (15-37) U/L ALT 30 (16-63) U/L Alkaline Phosphatase 90 (46-116) U/L Creatine Kinase 148 (39-308) U/L Troponin I < 0.017 (0.00-0.056) ng/mL Total Protein 6.5 (6.4-8.2) g/dl Albumin 3.7 (3.4-5.0) g/dl Globulin 2.8 gm/dL Albumin/Globulin Ratio 1.3 (1-2) TSH 3rd Generation 4.140 H (0.358-3.74) uIU/mL Urine Color Yellow (Yellow) Urine Appearance Clear (Clear) Urine pH 7.0 (5.0-8.0) Ur Specific [place] 1.025 (1.005-1.030) Urine Protein Negative (Negative) Urine Glucose (UA) Negative (Negative) Urine Ketones Negative (Negative) Urine Occult Blood Trace-lysed H (Negative) Urine Nitrite Negative (Negative) Urine Bilirubin Negative (Negative) Urine Urobilinogen 0.2 (0.2-1.0) Ur Leukocyte Esterase Negative (Negative) Urine RBC 20-30 H (0-5) /hpf Urine WBC 0-5 (0-5) /hpf Ur Squamous Epith Cells 0-5 (0-5) /hpf Amorphous Sediment Few H (NOT SEEN) /hpf Urine Bacteria Few (FEW) /hpf Urine Mucus Few (FEW) /hpf Departure - Departure Time of Disposition: 22:17 Disposition: DC/Tfer to [facility] Condition: Good Clinical Impression: Breakthrough seizure, History of fall - Discharge Information Referrals: PCP,None [Primary Care Provider] - Additional Instructions: It is apparent that the patient had a limited breakthrough seizure. There are no salient abnormals in imaging or labs. Please call the neurologist managing the patient's condition and inform of this visit. For any concerns whatsoever including fever fall apparent seizure or any other problem do not hesitate to return him by ambulance to the ER immediately. Sepsis Event Note (ED) - Evaluation Sepsis Screening Result: No Definite Risk - Focused Exam Vital Signs: Vital Signs Temp Pulse Resp BP Pulse Ox 10/27/20 19:01 36.5 C 72 20 139/91 H 99 - My Orders Last 24 Hours: My Active Orders 10/27/20 19:07 EKG Documentation Completion [RC] STAT Chest 1V Frontal [CR] Stat - Assessment/Plan Last 24 Hours: My Active Orders 10/27/20 19:07 EKG Documentation Completion [RC] STAT Chest 1V Frontal [CR] Stat
--- NOTE | 2020-10-28 12:47 | CR ---
Chest: Portable view of the chest was obtained. Comparison: Prior chest x-ray of 09/01/17. Spinal fixation rods are noted. Findings are stable from prior chest x-ray. Fracture of the upper spinal fixation river is seen which is stable. Several fractured wires are seen which are stable. Elevated right hemidiaphragm is seen which is stable. Minimal atelectasis is seen within the right lung base. Lungs otherwise are clear. Heart size and mediastinum are normal. Impression: 1. Spinal fixation rods as described above which are stable. 2. Minimal right basilar atelectasis. 3. Nothing acute is otherwise seen. Diagnostic code #2
== END 2020-10-27 22:32 ==
LOC: JD.ED 18:55
DX: R56.9 Unspecified convulsions (principal); F79 Unspecified intellectual disabilities; Z91.81 History of falling; Z79.899 Other long term (current) drug therapy
CPT/HCPCS: 36415; 70450; 70450-26; 71045; 71045-26; 72125; 72125-26; 80053; 81001; 82550; 83735; 84443; 84484; 85007; 85027; 93005; 93010; 99284; 99285-25

== ENCOUNTER 2021-04-25 21:03 | Emergency (ER) | payer MEDICAID ==
[2021-04-25] MEDS ORDERED: Lidocaine 1% 50 ML MDV INJECT ONE (21:39)
--- NOTE | 2021-04-25 23:04 | EDM.PDOC ---
ED HPI GENERAL MEDICAL PROBLEM - General Chief Complaint: Laceration Stated Complaint: [facility] Time Seen by Provider: 04/25/21 21:29 Source of Information: Reports: RN Notes Reviewed, Other (Able staff person) - History of Present Illness INITIAL COMMENTS - FREE TEXT/NARRATIVE: 35 yr old ABLE male pt with hx of autism, seizure disorder had a seizure this evening, fell hitting chin on floor. Seizure apparently of brief duration. Unable to control bleeding FILAMENT SHAPER. No other apparent area of injury. He is on seizure meds, apparently his 4th seizure in about 3 to 4 months. Has not been recently ill. - Related Data Allergies Allergy/AdvReac Type Severity Reaction Status Date / Time No Known Allergies Allergy Verified 04/25/21 21:17 Home Meds: Home Meds Acetaminophen [Mapap] 1,000 mg PO Q4H PRN 09/01/17 [History] Calcium Carbonate/Vitamin D3 [Calcium 600 + Vit D Tablet] 1 tab PO BID 09/01/17 [History] Cholecalciferol (Vitamin D3) [Vitamin D3] 1,000 units PO BEDTIME 09/01/17 [History] Citalopram [Citalopram HBr] 30 mg PO DAILY 09/01/17 [History] Clindamycin Phos/Benzoyl Perox [Clindamycin-Bnz Perox 1-5% Cigarette Paper Tester] 1 applic TOP BEDTIME 09/01/17 [History] Cyclobenzaprine [Flexeril] 10 mg PO BEDTIME 09/01/17 [History] Ferrous Sulfate [Iron] 325 mg PO BID 09/01/17 [History] Furosemide 20 mg PO DAILY 09/01/17 [History] Ibuprofen 600 mg PO Q6H PRN 09/01/17 [History] Imipramine HCl [Imipramine] 75 mg PO BEDTIME 09/01/17 [History] LORazepam [Ativan] 0.5 mg PO QID 09/01/17 [History] Lisinopril 20 mg PO DAILY 09/01/17 [History] Multivitamin [Multi-Vitamin Daily] 1 cap PO BEDTIME 09/01/17 [History] Mupirocin Oint [Bactroban Nasal Oint] 1 applic NASBOTH BID 09/01/17 [History] OXcarbazepine [Trileptal] 900 mg PO BID 09/01/17 [History] Omeprazole 40 mg PO DAILY 09/01/17 [History] QUEtiapine [SEROquel] 100 mg PO TID 09/01/17 [History] Sodium Chloride 3 gm PO TID 09/01/17 [History] Sodium Chloride [Deep Sea] 1 spray NASBOTH TID PRN 09/01/17 [History] Vitamin E 400 units PO BID 09/01/17 [History] cloNIDine [Catapres] 0.1 mg PO QID 09/01/17 [History] levETIRAcetam [Keppra] 500 mg PO BID 09/01/17 [History] levETIRAcetam [Levetiracetam] 1,000 mg PO BID 09/01/17 [History] Divalproex Sodium [Depakote] 500 mg PO BID 09/02/17 [History] QUEtiapine [SEROquel] 400 mg PO BEDTIME 09/04/17 [History] Ampicillin [Principen] 500 mg PO Q6H #40 cap 09/12/17 [Rx] Docusate Sodium [Colace] 100 mg PO BID #60 cap 09/12/17 [Rx] Metoprolol Tartrate [Lopressor] 25 mg PO Q12HR #60 tablet 09/12/17 [Rx] Saccharomyces Boulardii [Florastor] 250 mg PO BID #60 cap 09/12/17 [Rx] Past Medical History HEENT History: Reports: None Cardiovascular History: Reports: None Respiratory History: Reports: None Gastrointestinal History: Reports: GERD, Other (See Below) Other Gastrointestinal History: Is on a fluid restrictive diet as he consumes excessive amounts of liquid which depletes his sodium. Genitourinary History: Reports: None Musculoskeletal History: Reports: Other (See Below) Other Musculoskeletal History: wears AFO's to bilateral feet/legs, previous hip dislocations Neurological History: Reports: Seizure Psychiatric History: Reports: Anxiety, Autism, Other (See Below) Other Psychiatric History: mild mental retardation Endocrine/Metabolic History: Reports: Vitamin D Deficiency Hematologic History: Reports: None Immunologic History: Reports: None Oncologic (Cancer) History: Reports: None Dermatologic History: Reports: Other (See Below) Other Dermatologic History: acne - Past Surgical History HEENT Surgical History: Reports: None Cardiovascular Surgical History: Reports: None Respiratory Surgical History: Reports: None GI Surgical History: Reports: None Male Surgical History: Reports: None Endocrine Surgical History: Reports: None Neurological Surgical History: Reports: Scoliosis Other Neurological Surgeries/Procedures: river placed to back due to scoliosis Musculoskeletal Surgical History: Reports: Other (See Below) Other Musculoskeletal Surgeries/Procedures:: hip surgery Oncologic Surgical History: Reports: None Dermatological Surgical History: Reports: None Social & Family History - Family History Family Medical History: No Pertinent Family History - Tobacco Use Tobacco Use Status *Q: Never Tobacco User - Caffeine Use Caffeine Use: Reports: Soda ED ROS GENERAL - Review of Systems Review Of Systems: See Below Constitutional: Denies: Fever HEENT: Reports: Other (chin lac) Respiratory: Denies: Shortness of Breath GI/Abdominal: Denies: Vomiting Musculoskeletal: Reports: No Symptoms Neurological: Reports: Seizure ED EXAM, SKIN/RASH Exam: See Below General Appearance: Alert, Other (nonverbal) Eye Exam: Bilateral Eye: PERRL Ears: Normal External Exam Nose: Normal Inspection Throat/Mouth: Other (no bleeding from the mouth) Head: Other (3 cm deep, gaping lac inf. chin, no deformity, no apparent bony tenderness). No: Facial Swelling Neck: Non-Tender Respiratory/Chest: No Respiratory Distress, Lungs Clear, Normal Breath Sounds Cardiovascular: Regular Rate, Rhythm Extremities: Normal Inspection Neurological: Other (Pt is awake, nonverbal(normally nontalkative) He does make eye contact, cooperative with exam and treatment) ED SKIN PROCEDURES - Laceration/Wound Repair Face Appearance: Linear Local Anesthesia - Lidocaine (Xylocaine): 1% Plain Skin Prep: Saline Exploration/Debridement/Repair: Wound Explored Closed with: Sutures Lac/Wound length In cm: 3 Suture Size: 3-0 # of Sutures: 8 Suture Type: Nylon Course - Vital Signs Last Recorded V/S: Last Vital Signs Temp 98.1 F 04/25/21 21:15 Pulse 71 04/25/21 21:15 Resp 16 04/25/21 21:15 BP 121/67 04/25/21 21:15 Pulse Ox 98 04/25/21 21:15 - Orders/Labs/Meds Orders: Active Orders 24 hr Category Date Time Status LEVETIRACETAM, S [REF] Urgent Lab 04/25/21 21:56 Received Labs: Laboratory Tests 04/25/21 04/25/21 Range/Units 21:56 21:56 WBC 5.84 (4.23-9.07) K/mm3 RBC 4.49 L (4.63-6.08) M/mm3 Hgb 14.2 (13.7-17.5) gm/dl Hct 41.3 (40.1-51.0) % MCV 92.0 (79.0-92.2) fl MCH 31.6 (25.7-32.2) pg MCHC 34.4 (32.2-35.5) g/dl RDW Std Deviation 39.7 (35.1-43.9) fL Plt Count 129 L (163-337) K/mm3 MPV 11.6 (9.4-12.3) fl Neut % (Auto) 49.8 (34.0-67.9) % Lymph % (Auto) 32.0 (21.8-53.1) % [place] % (Auto) 12.7 H (5.3-12.2) % Eos % (Auto) 4.5 (0.8-7.0) Baso % (Auto) 0.7 (0.1-1.2) % Neut # (Auto) 2.91 (1.78-5.38) K/mm3 Lymph # (Auto) 1.87 (1.32-3.57) K/mm3 [place] # (Auto) 0.74 (0.30-0.82) K/mm3 Eos # (Auto) 0.26 (0.04-0.54) K/mm3 Baso # (Auto) 0.04 (0.01-0.08) K/mm3 Sodium 136 (136-145) mEq/L Potassium 3.6 (3.5-5.1) mEq/L Chloride 103 (98-107) mEq/L Carbon Dioxide 25 (21-32) mEq/L Anion Gap 11.6 (5-15) BUN 15 (7-18) mg/dL Creatinine 0.8 (0.7-1.3) mg/dL Est Cr Clr Drug Dosing TNP Estimated GFR (MDRD) > 60 (>60) mL/min BUN/Creatinine Ratio 18.8 H (14-18) Glucose 97 (70-99) mg/dL Calcium 8.4 L (8.5-10.1) mg/dL Total Bilirubin 0.3 (0.2-1.0) mg/dL AST 24 (15-37) U/L ALT 28 (16-63) U/L Alkaline Phosphatase 109 (46-116) U/L Total Protein 6.7 (6.4-8.2) g/dl Albumin 3.8 (3.4-5.0) g/dl Globulin 2.9 gm/dL Albumin/Globulin Ratio 1.3 (1-2) Meds: Medications Discontinued Medications Generic Name Dose Route Start Last Admin Trade Name Colette PRN Reason Stop Dose Admin Lidocaine HCl 50 ml 04/25/21 21:39 04/25/21 21:56 Lidocaine 1% 50 Ml Mdv INJECT 04/25/21 21:40 50 ml ONETIME ONE Administration - Re-Assessments/Exams Free Text/Narrative Re-Assessment/Exam: 04/26/21 00:42 No further seizure activity while here in the ED. K+ 3.6, other labs are good. Keppra level sent out. Discharge instr. as documented. Departure - Departure Time of Disposition: 23:01 Disposition: Home, Self-Care 01 Condition: Fair Clinical Impression: Seizure Fall Qualifiers: Encounter type: initial encounter Qualified Code(s): W19.XXXA - Unspecified fall, initial encounter Chin laceration Qualifiers: Encounter type: initial encounter Qualified Code(s): S01.81XA - Laceration without foreign body of other part of head, initial encounter - Discharge Information Instructions: Laceration Care, Adult, [id number] Referrals: PCP,None [Primary Care Provider] - Forms: ED Department Discharge Additional Instructions: Lac care instr. Continue seizure precautions. Stitches out in 12 to 13 days. Follow up in 5 to 7 days with his provider for recheck. Keppra level drawn with his lab work today. That is a send off, result should be available in 3 to 4 working days. Continue current meds, return to ED as needed. Sepsis Event Note (ED) - Evaluation Sepsis Screening Result: No Definite Risk - Focused Exam Vital Signs: Vital Signs Temp Pulse Resp BP Pulse Ox 04/25/21 21:15 98.1 F 71 16 121/67 98 - My Orders Last 24 Hours: My Active Orders 04/25/21 21:56 LEVETIRACETAM, S [REF] Urgent - Assessment/Plan Last 24 Hours: My Active Orders 04/25/21 21:56 LEVETIRACETAM, S [REF] Urgent
== END 2021-04-25 23:20 | disposition home or self-care (01) ==
LOC: JD.ED 21:03
DX: S01.81XA Laceration without foreign body of other part of head, initial encounter (principal); K21.9 Gastro-esophageal reflux disease without esophagitis; F70 Mild intellectual disabilities; G40.909 Epilepsy, unspecified, not intractable, without status epilepticus; Z79.899 Other long term (current) drug therapy; W22.8XXA Striking against or struck by other objects, initial encounter
CPT/HCPCS: 12013; 36415; 80053; 80177; 85025; 99284; J2001

== ENCOUNTER 2025-02-09 07:22 | Day surgery (SDC) | payer MEDICARE, MEDICAID ==
[~2025-02-09 07:22] MED LIST: Lidocaine 1% 4 ML ONE; Propofol 200 MG/20 ML SDV ONE; Sodium Chloride 0.9% 10 ML Syringe FLUSH PRN; Sodium Chloride 0.9% 10 ML Syringe FLUSH SCH
[2025-02-09] MEDS: Lactated Ringers 1,000 ML IV SCH (07:45)
[2025-02-09] MEDS ORDERED: Midazolam 1 MG/ML 2 ML SDV ONE (08:05)
== END 2025-02-09 10:20 | disposition home or self-care (01) ==
LOC: JD.SDS 07:22
PROVIDERS: ATTEND Surgery
DX: Z12.11 Encounter for screening for malignant neoplasm of colon (principal); D12.3 Benign neoplasm of transverse colon; K57.30 Diverticulosis of large intestine without perforation or abscess without bleeding; K29.50 Unspecified chronic gastritis without bleeding; K64.8 Other hemorrhoids; K21.9 Gastro-esophageal reflux disease without esophagitis; K25.9 Gastric ulcer, unspecified as acute or chronic, without hemorrhage or perforation; K29.80 Duodenitis without bleeding; I10 Essential (primary) hypertension; Z80.0 Family history of malignant neoplasm of digestive organs; Z79.899 Other long term (current) drug therapy
CPT/HCPCS: 43239; 45380; 88305; J2003; J2250; J2704; J7120; 00813

== ENCOUNTER 2025-06-22 08:13 | Day surgery (SDC) | payer MEDICARE, MEDICAID ==
[~2025-06-22 08:13] MED LIST changes: -Lidocaine 1% 4 ML ONE; -Propofol 200 MG/20 ML SDV ONE
[2025-06-22] MEDS: Lactated Ringers 1,000 ML IV SCH (08:40)
[2025-06-22] MEDS ORDERED: Propofol 200 MG/20 ML SDV ONE (09:42)
== END 2025-06-22 11:10 | disposition home or self-care (01) ==
LOC: JD.SDS 08:13
PROVIDERS: ATTEND Surgery
DX: K29.00 Acute gastritis without bleeding (principal); K29.80 Duodenitis without bleeding; K21.00 Gastro-esophageal reflux disease with esophagitis, without bleeding; K31.89 Other diseases of stomach and duodenum; I12.9 Hypertensive chronic kidney disease with stage 1 through stage 4 chronic kidney disease, or unspecified chronic kidney disease; N18.9 Chronic kidney disease, unspecified; Z88.8 Allergy status to other drugs, medicaments and biological substances; Z79.899 Other long term (current) drug therapy
CPT/HCPCS: 43239; 88305; 88342; J2003; J2704; J7120; 00731